=== PATIENT | female | born 1955 | race Caucasian/White ===

== ENCOUNTER → 2022-10-04 13:40 | Outpatient (CLI) | payer MEDICARE, SELFPAY ==
[2022-10-04 14:07] LABS: Add Manual Diff / Slide Review NO; Basophils Absolute Auto 100 /uL (0-100); Basophils Percent Auto 1.2 % (0-2); Eosinophils Absolute Auto 100 /uL (0-450); Eosinophils Percent Auto 1.2 % (2-4); Hematocrit 38.3 % (36-46); Hemoglobin 13.2 g/dL (12.0-16.0); Lymphocytes Absolute Auto 1500 /uL (1100-4500); Lymphocytes Percent Auto 16.5 % (25-40); Mean Corpuscular HGB Conc 34.4 % (30-36); Mean Corpuscular Hemoglobin 31.9 PG (26-34); Mean Corpuscular Volume 92.6 fL (80-100); Monocytes Absolute Auto 500 /uL (0-900); Monocytes Percent Auto 5.7 % (3-14); Neutrophils Absolute Auto 6700 /uL (1500-7000); Neutrophils Percent Auto 75.4 % (50-75); Platelet Count 275 X10^3/uL (150-400); Red Blood Cell Count 4.14 X10^6/uL (4.0-5.2); Red Cell Distribution Width 17.9 % (11.6-14.8); White Blood Cell Count 8.9 X10^3/uL (4.5-11.0)
[2022-10-04 14:23] LABS: Alanine Aminotransferase 43 IU/L (<35); Albumin 4.8 g/dL (3.5-5.0); Albumin Globulin Ratio 1.5 (1.0-2.8); Alkaline Phosphatase 137 U/L (38-126); Aspartate Aminotransferase 53 IU/L (14-36); BUN Creatinine Ratio 22.6 (6-22); Bilirubin Total 0.6 mg/dL (0.2-1.3); Blood Urea Nitrogen 26 mg/dL (7-17); Calcium 9.3 mg/dL (8.4-10.2); Carbon Dioxide 22 mmol/L (22-32); Chloride 102 mmol/L (98-107); Estimated Glomerular Filt Rate 52 mL/min (>60); Globulin 3.3 g/dL (1.7-4.1); Glucose 160 mg/dL (80-110); HDL Cholesterol 73 mg/dL (40-60); HEMOLYSIS < 15 (0-50); Potassium 4.3 mmol/L (3.4-5.1); Sodium 137 mmol/L (137-145); Total Protein 8.1 g/dL (6.3-8.2); Triglycerides 419 mg/dL (35-150)
[2022-10-04 14:26] LABS: Hemoglobin A1C% w Est Avg Glu 6.5 % (4.0-6.0)
[2022-10-04 14:33] LABS: Cholesterol 431 mg/dL (140-199)
[2022-10-04 14:51] LABS: TSH w/ Reflex to FT4 9.09 uIU/mL (0.47-4.68)
[2022-10-04 15:20] LABS: Free T4, Direct Thyroxine 1.52 ng/dL (0.78-2.19)
== END ==
PROVIDERS: PCP Family Medicine; Referring Provider Family Medicine; Visit Provider Family Medicine
DX: E03.9 Hypothyroidism, unspecified (principal); R73.01 Impaired fasting glucose; I10 Essential (primary) hypertension; J34.89 Other specified disorders of nose and nasal sinuses; R50.9 Fever, unspecified
CPT/HCPCS: 36415; 80053; 80061; 83036; 84439; 84443; 85025

== ENCOUNTER → 2022-11-23 11:57 | Outpatient (CLI) | payer MEDICARE, SELFPAY ==
[2022-11-23 12:38] LABS: Add Manual Diff / Slide Review NO; Basophils Absolute Auto 100 /uL (0-100); Eosinophils Absolute Auto 100 /uL (0-450); Eosinophils Percent Auto 1.7 % (2-4); Hematocrit 35.7 % (36-46); Hemoglobin 12.2 g/dL (12.0-16.0); Lymphocytes Absolute Auto 1700 /uL (1100-4500); Lymphocytes Percent Auto 28.3 % (25-40); Mean Corpuscular HGB Conc 34.2 % (30-36); Mean Corpuscular Hemoglobin 31.7 PG (26-34); Mean Corpuscular Volume 92.7 fL (80-100); Monocytes Absolute Auto 400 /uL (0-900); Monocytes Percent Auto 6.7 % (3-14); Neutrophils Absolute Auto 3700 /uL (1500-7000); Neutrophils Percent Auto 62.3 % (50-75); Platelet Count 396 X10^3/uL (150-400); Red Blood Cell Count 3.85 X10^6/uL (4.0-5.2); Red Cell Distribution Width 15.7 % (11.6-14.8)
[2022-11-23 13:16] LABS: BUN Creatinine Ratio 13.1 (6-22); Blood Urea Nitrogen 16 mg/dL (7-17); Calcium 9.8 mg/dL (8.4-10.2); Carbon Dioxide 21 mmol/L (22-32); Chloride 107 mmol/L (98-107); Cholesterol 212 mg/dL (140-199); Estimated Glomerular Filt Rate 48 mL/min (>60); Glucose 112 mg/dL (80-110); HDL Cholesterol 67 mg/dL (40-60); HEMOLYSIS < 15 (0-50); LDL Cholesterol Calculated 108 mg/dL (<100); Potassium 4.3 mmol/L (3.4-5.1); Sodium 139 mmol/L (137-145); Triglycerides 187 mg/dL (35-150)
[2022-11-23 13:20] LABS: High Sensitivity CRP - Cardiac 0.9 mg/L (1.0-3.0)
[2022-11-23 13:46] LABS: TSH w/ Reflex to FT4 6.31 uIU/mL (0.47-4.68)
[2022-11-23 14:16] LABS: Folate 4.2 ng/mL (2.76-20.0); Vitamin B12 > 1000 pg/mL (239-931)
[2022-11-23 21:35] LABS: Erythrocyte Sedimentation Rate 9 MM/HR (0-20)
[2022-11-25 22:03] LABS: Free Lambda Lt Chains,Serum 11.5 mg/L (5.7-26.3)
[2022-11-28 14:12] LABS: Albumin 3.9 g/dL (2.9-4.4); Alpha 1 Globulin 0.3 g/dL (0.0-0.4); Alpha 2 Globulin 0.8 g/dL (0.4-1.0); Beta 1 Globulin 1.1 g/dL (0.7-1.3); Gamma Globulin 0.6 g/dL (0.4-1.8); Protein, Total 6.7 g/dL (6.0-8.5)
[2022-11-28 14:36] LABS: ANA Screen, IFA Negative (.)
== END ==
PROVIDERS: PCP Family Medicine; Referring Provider Family Medicine; Visit Provider Family Medicine
DX: E03.9 Hypothyroidism, unspecified (principal); E78.5 Hyperlipidemia, unspecified; G62.9 Polyneuropathy, unspecified; I10 Essential (primary) hypertension; N18.30 Chronic kidney disease, stage 3 unspecified
CPT/HCPCS: 36415; 80048; 80061; 82607; 82746; 83883; 84155; 84165; 84439; 84443; 85025; 85300; 85651; 86038; 86140

== ENCOUNTER → 2023-02-04 11:40 | Outpatient (CLI) | payer MEDICARE, SELFPAY ==
[2023-02-04 12:01] LABS: Hematocrit 38.9 % (36-46); Hemoglobin 13.2 g/dL (12.0-16.0)
[2023-02-04 12:14] LABS: BUN Creatinine Ratio 15.7 (6-22); Blood Urea Nitrogen 18 mg/dL (7-17); Calcium 9.8 mg/dL (8.4-10.2); Carbon Dioxide 17 mmol/L (22-32); Chloride 107 mmol/L (98-107); Estimated Glomerular Filt Rate 52 mL/min (>60); Glucose 145 mg/dL (80-110); HEMOLYSIS 19 (0-50); Phosphorous 2.8 mg/dL (2.8-4.1); Potassium 4.7 mmol/L (3.4-5.1); Sodium 134 mmol/L (137-145)
[2023-02-04 12:58] LABS: Appearance Urine UA CLEAR; Bilirubin Urine UA 1+ (NEGATIVE); Color Urine UA YELLOW; Glucose Urine UA NEGATIVE (Negative); Ketones Urine UA 1+ (NEGATIVE); Leukocyte Esterase Urine UA TRACE (NEGATIVE); Nitrite Urine UA NEGATIVE (Negative); Occult Blood Urine UA NEGATIVE (Negative); Protein Urine UA NEGATIVE (Negative)
[2023-02-04 13:19] LABS: Bacteria Urine Many (>30); Culture Indicated Urine Specimen Cultured; Ictotest Urine Negative (Negative); RBC Urine None Seen (0-5/HPF); Squamous Epithelial Cell Urine 0-1 /HPF (0-5/HPF); WBC Urine 1-5/HPF (0-5/HPF)
[2023-02-04 15:28] LABS: Creatinine Urine Random 150.6 mg/dL; Protein (Total) Urine Random 13 mg/dL (0-12); Protein Creatinine Ratio Urine 0.08 GRAM/24H
[2023-02-07 09:17] LABS: Parathyroid Hormone Int 33 pg/mL (15-65)
== END ==
PROVIDERS: PCP Family Medicine; Referring Provider Student in an Organized Health Care Education/Training Program; Visit Provider Student in an Organized Health Care Education/Training Program
DX: N05.9 Unspecified nephritic syndrome with unspecified morphologic changes (principal); D64.9 Anemia, unspecified; E83.30 Disorder of phosphorus metabolism, unspecified; N30.00 Acute cystitis without hematuria; R80.9 Proteinuria, unspecified; N25.81 Secondary hyperparathyroidism of renal origin
CPT/HCPCS: 36415; 80048; 81001; 82570; 83970; 84100; 84156; 85014; 85018; 87086

== ENCOUNTER 2023-06-07 14:18 | Emergency (ER) | payer MEDICARE, SELFPAY ==
[2023-06-07] VITALS (7 sets, daily range): BP systolic 100–145; BP diastolic 59–95; PULSE 94–111; RESP 18–23; TEMP 36.8; O2SAT 91–96; BMI 38.4
--- NOTE | 2023-06-07 14:39 | DI.RAD.S_ITS ---
PROCEDURE: XR CHEST 1V INDICATIONS: Shortness of breath TECHNIQUE: One view of the chest was acquired. COMPARISON: None. FINDINGS: Surgical changes and devices: Partially visualized thoracolumbar spinal fixation hardware. Lungs and pleura: Lungs are clear. No pleural effusions or pneumothorax. Mediastinum: Mediastinal contours appear normal. Heart size is normal. Bones and chest wall: No suspicious bony lesions. Overlying soft tissues appear unremarkable. IMPRESSION: No acute cardiopulmonary process. Dictated by: Davin Espinosa M.D. on 06/07/2023 at 15:25 Approved by: Davin Espinosa M.D. on 06/07/2023 at 15:26
--- NOTE | 2023-06-07 15:19 | ED.GENADULT ---
HPI - General Adult General Chief complaint: Shortness of Breath/Dyspnea Stated complaint: distorted hernia? sob/weight gain /swollen feet Time Seen by Provider: 06/07/23 14:59 Source: patient Mode of arrival: Ambulatory History of Present Illness HPI narrative: Patient is a 59-year-old female. Has had multiple abdominal surgeries in the past. Has had an anterior and posterior approach to back surgery. Has also had a bowel obstruction. Has developed hernias from this. Has required mesh and then revisions of the mesh. She also has had multiple lower extremity DVTs which she states have been attributed to surgeries. She is not currently on anticoagulation. No history of pulmonary embolism. Approximately 1 week ago she started to have pain in the left side of her abdomen and then abdominal distention. This is worsened during this time. She also stating that she is having swelling in her legs. The abdominal distention is causing her to have shortness of breath. No chest pain. No diagnosis of heart failure. She states she is still having bowel movements and did pass flatus today. No urinary symptoms. Some nausea developing today. No vomiting. Related Data Home Medications Medication Instructions Recorded Confirmed aspirin 81 mg tablet,delayed 81 mg PO DAILY 08/10/22 03/22/23 release (Adult Aspirin Regimen) mecobalamin (vitamin B12) PO 08/10/22 03/22/23 metformin 500 mg tablet 500 mg PO DAILY 10/04/22 03/22/23 amlodipine 5 mg tablet 5 mg PO DAILY High blood pressure 03/22/23 03/22/23 furosemide 20 mg tablet (Lasix) 20 mg PO .prn edema 03/22/23 03/22/23 lisinopril 20 mg tablet 20 mg PO DAILY 03/22/23 03/22/23 Previous Rx's Medication Instructions Recorded levothyroxine 112 mcg tablet See Rx Instructions .Route 10/14/22 .COMPLEX #90 tabs fenofibrate 160 mg tablet See Rx Instructions .Route 01/09/23 .COMPLEX #90 tabs oxycodone 5 mg tablet 5 mg PO TID PRN pain 30 days #90 04/04/23 tabs Allergies Allergy/AdvReac Type Severity Reaction Status Date / Time Sulfa (Sulfonamide Allergy Severe Anaphylaxis Verified 03/22/23 08:19 Antibiotics) acetaminophen Allergy Mild Vomiting Verified 03/22/23 08:19 marijuana (cannabis) Allergy Anaphylaxis Verified 06/07/23 14:21 Review of Systems Constitutional Constitutional: Reports system reviewed and no additional complaints, except as documented Cardiovascular Cardiovascular: Reports system reviewed and no additional complaints, except as documented Respiratory Respiratory: Reports system reviewed and no additional complaints, except as documented Gastrointestinal Gastrointestinal: Reports system reviewed and no additional complaints, except as documented Genitourinary Genitourinary: Reports system reviewed and no additional complaints, except as documented Integumentary/Breasts Skin/Breast: Reports system reviewed and no additional complaints, except as documented Hematologic/Lymphatic On Anticoagulants: No Patient History Medical History Type 2 diabetes mellitus with complication, without long-term current use of insulin Hyperlipidemia CKD (chronic kidney disease) stage 3, GFR 30-59 ml/min Narcolepsy (~1999) Depression TIA (transient ischemic attack) (~2017) Peripheral neuropathy (~04/2022) Fractures Chicken pox Vertigo (~1969) Heavy menstrual period (~1970) Abnormal Pap smear of cervix (~1978) Hemorrhoid (~1979) Colon polyps Deep vein thrombosis Cervical cancer Chronic pain Benign essential HTN IFG (impaired fasting glucose) Hypothyroidism (~2009) Surgical History (Updated 10/11/22 @ 19:38 by Kia Andre) Anesthesia Family History (Updated 10/11/22 @ 19:41 by Kia Andre) Father Diabetes mellitus History of heart disease Stroke Mother History of heart disease Grandfather History of heart disease Grandmother History of heart disease Grandfather Parkinson's disease Grandmother Alzheimer's disease Social History Smoking Status: Former smoker Smoking Status: Former smoker tobacco type: cigarettes alcohol intake frequency: a few times a week Substance Use Type: does not use Exam Initial Vital Signs Initial Vital Signs: Vital Signs Temperature 98.3 F 06/07/23 14:21 Pulse Rate 111 H 06/07/23 14:21 Respiratory Rate 22 06/07/23 14:21 Blood Pressure 121/68 06/07/23 14:21 Pulse Oximetry 96 06/07/23 14:21 Oxygen Delivery Method Room Air 06/07/23 14:21 HENMT Head: normal to inspection and normocephalic Resp Effort & Inspection: normal respiratory effort Auscultation: clear to auscultation bilaterally Cardio Rate: regular rate Rhythm: regular rhythm GI Inspection: distended Palpation: firm and tender Skin General: no rashes or lesions noted Neuro General: patient alert, patient awake and patient oriented x3 Extrem General: normal to inspection and edema Course Orders Ordered: ED Orders 06/07/23 14:39 XR chest 1V Stat EKG-12 Lead Stat Measure peak expiratory flow ONCE RT Consult Eval and Treat NOW 06/07/23 14:55 Complete Blood Count AUTO DIFF Stat Comprehensive Metabolic Panel Stat Lactate (Lactic Acid) Stat NT-proBNP (BNP-Adult 18+) Stat Prothrombin Time INR Stat Troponin I Stat 06/07/23 15:19 CT abdomen pelvis w con Stat Vital Signs Vital signs: Vital Signs - 8 hr 06/07/23 14:21 06/07/23 15:06 06/07/23 15:06 Temperature 98.3 F Pulse Rate 111 H 95 H Respiratory Rate 22 Blood Pressure 121/68 117/70 Pulse Oximetry 96 96 Oxygen Delivery Method Room Air 06/07/23 15:30 06/07/23 15:30 06/07/23 16:00 Temperature Pulse Rate 103 H 97 H Respiratory Rate 21 23 Blood Pressure 115/63 Pulse Oximetry 94 94 Oxygen Delivery Method 06/07/23 16:00 06/07/23 16:16 06/07/23 16:16 Temperature Pulse Rate 96 H Respiratory Rate 19 Blood Pressure 100/67 145/95 H Pulse Oximetry 91 Oxygen Delivery Method Medical Decision Making Lab Data Lab results reviewed: Yes I reviewed the patient's lab results. 06/07/23 14:55 06/07/23 14:55 Labs: Lab Results 06/07/23 Range/Units 14:55 WBC 9.5 (4.5-11.0) X10^3/uL RBC 4.07 (4.0-5.2) X10^6/uL Hgb 12.0 (12.0-16.0) g/dL Hct 36.1 (36-46) % MCV 88.7 (80-100) fL MCH 29.4 (26-34) PG MCHC 33.2 (30-36) % RDW 15.3 H (11.6-14.8) % Plt Count 336 (150-400) X10^3/uL Neut % (Auto) 73.1 (50-75) % Lymph % (Auto) 17.7 L (25-40) % [place] % (Auto) 7.1 (3-14) % Eos % (Auto) 1.2 L (2-4) % Baso % (Auto) 0.9 (0-2) % Neut # (Auto) 6900 (0571-9097) /uL Lymph # (Auto) 1700 (0064-8605) /uL [place] # (Auto) 700 (0-900) /uL Eos # (Auto) 100 (0-450) /uL Baso # (Auto) 100 (0-100) /uL PT 11.2 (10.1-12.7) SECONDS INR 1.0 (0.9-1.3) Sodium 137 (137-145) mmol/L Potassium 5.0 (3.4-5.1) mmol/L Chloride 107 (98-107) mmol/L Carbon Dioxide 18 L (22-32) mmol/L BUN 31 H (7-17) mg/dL Creatinine 1.79 H (0.52-1.04) mg/dL Estimated GFR 31 L (>60) mL/min BUN/Creatinine Ratio 17.3 (6-22) Glucose 122 H (80-110) mg/dL Lactate 2.4 H (0.7-2.1) mmol/L Calcium 10.5 H (8.4-10.2) mg/dL Total Bilirubin 0.6 (0.2-1.3) mg/dL AST 53 H (14-36) IU/L ALT 47 H (<35) IU/L Alkaline Phosphatase 36 L (38-126) U/L Troponin I < 0.012 (0.01-0.034) ng/mL NT-Pro-B Natriuret Pep 66 (<125) pg/mL Total Protein 7.5 (6.3-8.2) g/dL Albumin 4.7 (3.5-5.0) g/dL Globulin 2.8 (1.7-4.1) g/dL Albumin/Globulin Ratio 1.7 (1.0-2.8) Imaging Data Chest x-ray: Radiologist's Impression: PROCEDURE: XR CHEST 1V INDICATIONS: Shortness of breath TECHNIQUE: One view of the chest was acquired. COMPARISON: None. FINDINGS: Surgical changes and devices: Partially visualized thoracolumbar spinal fixation hardware. Lungs and pleura: Lungs are clear. No pleural effusions or pneumothorax. Mediastinum: Mediastinal contours appear normal. Heart size is normal. Bones and chest wall: No suspicious bony lesions. Overlying soft tissues appear unremarkable. IMPRESSION: No acute cardiopulmonary process. CT scan - abdomen/pelvis: Radiologist's Impression: PROCEDURE: CT ABDOMEN PELVIS W CON INDICATIONS: Concern for bowel obstruction TECHNIQUE: After the administration of IV contrast, axial sections were acquired from the lung bases to the pubic symphysis. Coronal and sagittal reformats were performed. For radiation dose reduction, the following was used: automated exposure control, adjustment of mA and/or kV according to patient size. COMPARISON: None. FINDINGS: Image quality: Excellent. Lung bases: Bibasilar atelectasis. No pleural effusion. Heart: Moderate coronary artery calcifications. ABDOMEN: Liver: Small hypodensity at the dome likely a cyst. Gallbladder: Absent. Biliary ducts: Unremarkable. Pancreas: No peripancreatic fluid collection. Spleen: No splenomegaly. Adrenal Glands: No nodule. Kidneys and Ureters: No hydronephrosis. No mass. Stomach and Bowel: Stomach is not distended. No small bowel obstruction. Small bowel anastomosis in the mid abdomen, (2/51). Clip in the left abdomen. Appendix is absent. Peritoneum: No abnormal intraperitoneal fluid. No free air. Ventral Wall: Fat containing periumbilical hernia. Abdominal Nodes: No retroperitoneal or mesenteric adenopathy by size criteria. Vessels: Aorta and inferior vena cava are normal in size. PELVIS: Pelvic Organs: Unremarkable. Bladder: Unremarkable. Pelvic Nodes: No enlarged lymph nodes. Miscellaneous: No inguinal hernias are seen. Bones: Extensive spine fixation. No hardware fracture is identified. Multilevel laminectomies. Scoliosis. Minimal height loss at L2. Lumbar subcutaneous edema. Left hip arthroplasty. IMPRESSION: 1. No small bowel obstruction. No free fluid. 2. Fat containing periumbilical hernia. ECG Data Attestation: I personally reviewed and interpreted this ECG as follows: Interpretation: Sinus tachycardia Ventricular rate 102 Normal QRS Normal QTC No ST T wave changes MDM Narrative Medical decision making narrative: Patient does have a distended abdomen have her still having bowel movements and still passing flatus. CT scan shows no bowel obstruction. She does have Lasix that she takes at home as needed. She is describing lower extremity swelling and this could be adding to her abdominal distention as well. I did advise that she go back on her Lasix. We had a discussion about her bowel movements and she states they have been small but she is not getting the relief that she would expect. Will have her start on a laxative for this. No indication for admission to the hospital. No indication for antibiotics. Discharge patient home with return precautions. Discharge Plan Departure Patient Disposition: Home Clinical Impression: Abdominal pain Instructions: Constipation, DI for Abdominal Pain-Adult Activity Restrictions/Additional Instructions: Continue to take all of your medications as directed and I do recommend that you go back on your Lasix/furosemide. I also recommend that you start on a good bowel regimen which may include stool softeners or laxatives like we discussed. Keep your scheduled appointment with your primary doctor. Return to the emergency department for new or worsening symptoms. Prescriptions: No Action mecobalamin (vitamin B12) PO aspirin [Adult Aspirin Regimen] 81 mg tablet,delayed release (DR/EC) 81 mg PO DAILY levothyroxine 112 mcg tablet See Rx Instructions .ROUTE .COMPLEX Qty: 90 3RF Dose Instruction: TAKE 1 TABLET BY MOUTH DAILY Rx Instructions: TAKE 1 TABLET BY MOUTH DAILY fenofibrate 160 mg tablet See Rx Instructions .ROUTE .COMPLEX Qty: 90 1RF Dose Instruction: TAKE 1 TABLET BY MOUTH DAILY FOR CHOLESTEROL Rx Instructions: TAKE 1 TABLET BY MOUTH DAILY FOR CHOLESTEROL oxycodone 5 mg tablet 5 mg PO TID PRN (Reason: pain) 30 Days Qty: 90 0RF metformin 500 mg tablet 500 mg PO DAILY amlodipine 5 mg tablet 5 mg PO DAILY Patient Comments: The physician who prescribed this is my chronic kidney disease doctor lisinopril 20 mg tablet 20 mg PO DAILY furosemide [Lasix] 20 mg tablet 20 mg PO .prn Referrals: Higinio Block DO [Primary Care Provider] - Stand Alone Forms: Patient Portal/API
[2023-06-07 15:28] LABS: Prothrombin Time 11.2 SECONDS (10.1-12.7)
[2023-06-07 15:32] LABS: Add Manual Diff / Slide Review NO; Basophils Absolute Auto 100 /uL (0-100); Basophils Percent Auto 0.9 % (0-2); Eosinophils Absolute Auto 100 /uL (0-450); Eosinophils Percent Auto 1.2 % (2-4); Hematocrit 36.1 % (36-46); Lymphocytes Absolute Auto 1700 /uL (1100-4500); Lymphocytes Percent Auto 17.7 % (25-40); Mean Corpuscular HGB Conc 33.2 % (30-36); Mean Corpuscular Hemoglobin 29.4 PG (26-34); Mean Corpuscular Volume 88.7 fL (80-100); Monocytes Absolute Auto 700 /uL (0-900); Monocytes Percent Auto 7.1 % (3-14); Neutrophils Absolute Auto 6900 /uL (1500-7000); Neutrophils Percent Auto 73.1 % (50-75); Platelet Count 336 X10^3/uL (150-400); Red Blood Cell Count 4.07 X10^6/uL (4.0-5.2); Red Cell Distribution Width 15.3 % (11.6-14.8); White Blood Cell Count 9.5 X10^3/uL (4.5-11.0)
[2023-06-07 15:49] LABS: Alanine Aminotransferase 47 IU/L (<35); Albumin 4.7 g/dL (3.5-5.0); Albumin Globulin Ratio 1.7 (1.0-2.8); Alkaline Phosphatase 36 U/L (38-126); Aspartate Aminotransferase 53 IU/L (14-36); BUN Creatinine Ratio 17.3 (6-22); Bilirubin Total 0.6 mg/dL (0.2-1.3); Blood Urea Nitrogen 31 mg/dL (7-17); Calcium 10.5 mg/dL (8.4-10.2); Carbon Dioxide 18 mmol/L (22-32); Chloride 107 mmol/L (98-107); Estimated Glomerular Filt Rate 31 mL/min (>60); Globulin 2.8 g/dL (1.7-4.1); Glucose 122 mg/dL (80-110); HEMOLYSIS 38 (0-50); Sodium 137 mmol/L (137-145); Total Protein 7.5 g/dL (6.3-8.2)
[2023-06-07 15:51] LABS: Lactate (Lactic Acid) 2.4 mmol/L (0.7-2.1)
[2023-06-07 15:59] LABS: NT-proBNP (BNP-Adult 18+) 66 pg/mL (<125); Troponin I < 0.012 ng/mL (0.01-0.034)
[2023-06-07 16:55] LABS: Reflexed Lactate in 2 Hours Y
== END 2023-06-07 17:25 | disposition home or self-care (01) ==
PROVIDERS: Emergency Provider Emergency Medicine; PCP Family Medicine
DX: R10.9 Unspecified abdominal pain (principal); R11.0 Nausea; R06.02 Shortness of breath
CPT/HCPCS: 36415; 71045; 74177; 80053; 83605; 83880; 84484; 85025; 85610; 93005; 93010; 99283; 99284; Q9967

== ENCOUNTER → 2023-06-26 08:56 | Outpatient (CLI) | payer MEDICARE, SELFPAY ==
[2023-06-26 10:14] LABS: Hemoglobin A1C% w Est Avg Glu 7.1 % (4.0-6.0)
[2023-06-26 10:16] LABS: BUN Creatinine Ratio 21.6 (6-22); Blood Urea Nitrogen 24 mg/dL (7-17); Calcium 10.6 mg/dL (8.4-10.2); Carbon Dioxide 19 mmol/L (22-32); Chloride 107 mmol/L (98-107); Estimated Glomerular Filt Rate 54 mL/min (>60); Glucose 126 mg/dL (80-110); HEMOLYSIS < 15 (0-50); Sodium 135 mmol/L (137-145)
[2023-06-26 10:20] LABS: Potassium 5.6 mmol/L (3.4-5.1)
[2023-06-26 10:46] LABS: TSH w/ Reflex to FT4 3.91 uIU/mL (0.47-4.68)
== END ==
PROVIDERS: PCP Family Medicine; Referring Provider Family Medicine; Visit Provider Family Medicine
DX: E11.8 Type 2 diabetes mellitus with unspecified complications (principal); N18.30 Chronic kidney disease, stage 3 unspecified; E78.5 Hyperlipidemia, unspecified; I10 Essential (primary) hypertension; E03.9 Hypothyroidism, unspecified
CPT/HCPCS: 36415; 80048; 83036; 84443

== ENCOUNTER → 2023-08-28 10:15 | Outpatient (CLI) | payer MEDICARE, SELFPAY ==
--- NOTE | 2023-08-28 10:17 | DI.RAD.S_ITS ---
Bone Density Report Name: TRUNG MENA Age: 67 Sex: Female Ethnicity: White Date of : 1955 Indication: postmenopausal; screening for osteoporosis; prior fracture; Referring Provider: IRIS CALI Study: Bone densitometry was performed. Exam Date: August 28, 2023 Accession number: [id number] Bone Density: Region BMD T-score Z-score Classification Femoral Neck (Right) 0.649 -1.8 -0.1 Osteopenia Total Hip (Right) 0.809 -1.1 0.4 Osteopenia Total Forearm (Left) 0.501 -1.4 0.5 Osteopenia 1/3 Forearm (Left) 0.658 -0.6 1.4 Normal UD Forearm (Left) 0.380 -1.1 0.3 Osteopenia World Health Organization criteria for BMD impression classify patients as: Normal (T-score at or above -1.0), Osteopenia (T-score between -1.0 and -2.5), or Osteoporosis (T-score at or below -2.5). 10-year Fracture Risk: FRAX not reported because: Prior hip or vertebral fracture Impression: The patient has low bone mass, based on the Right Femoral Neck T-score. The patient has risk factors, including: previous fracture. Discussion: INCREASED RISK OF FRACTURE DUE TO HISTORY OF FRACTURE. The patient's previous fracture puts the patient at high risk of a future fracture. In untreated patients, the risk of osteoporotic fracture increases approximately two-fold for each 1.0 SD decrease in T-score. Low bone density is not the only risk factor for fracture; also consider factors such as patient's age, frailty or poor health, risk of falling, risk of injury, previous osteoporotic fracture, family history of osteoporosis, cigarette smoking, low body weight, etc. Not everyone with a low trauma fracture has osteoporosis; osteomalacia and other metabolic bone disorders should also be considered. Patients who have osteoporosis should be evaluated for specific diseases and conditions (secondary causes) that may cause or contribute to bone loss and fracture risk. National Osteoporosis Foundation (NOF) recommends pharmacologic intervention for patients with a prior hip or vertebral fracture regardless of BMD T-score. The patient should follow a healthful lifestyle (good nutrition with adequate calcium and vitamin D, and appropriate weight-bearing exercise). Follow-Up: Consider a repeat BMD and Vertebral Fracture Assessment (VFA) exam in 2 years or sooner if medically necessary, to reassess this patient's status. Reported by: MARÍA MURDOCK M.D. on 08/28/2023 10:48:00 AM.
== END ==
PROVIDERS: PCP Family Medicine; Referring Provider Family Medicine; Visit Provider Family Medicine
DX: M81.0 Age-related osteoporosis without current pathological fracture (principal); Z13.820 Encounter for screening for osteoporosis
CPT/HCPCS: 77080

== ENCOUNTER → 2023-09-04 07:53 | Outpatient (CLI) | payer MEDICARE, SELFPAY ==
[2023-09-04 09:11] LABS: Hemoglobin 11.3 g/dL (12.0-16.0)
[2023-09-04 10:07] LABS: BUN Creatinine Ratio 17.1 (6-22); Blood Urea Nitrogen 26 mg/dL (7-17); Calcium 9.6 mg/dL (8.4-10.2); Carbon Dioxide 14 mmol/L (22-32); Chloride 105 mmol/L (98-107); Estimated Glomerular Filt Rate 37 mL/min (>60); Glucose 97 mg/dL (80-110); HEMOLYSIS < 15 (0-50); Potassium 4.5 mmol/L (3.4-5.1); Sodium 132 mmol/L (137-145)
[2023-09-04 10:26] LABS: Creatinine Urine Random 124.7 mg/dL; Protein (Total) Urine Random 6 mg/dL (0-12); Protein Creatinine Ratio Urine 0.04 GRAM/24H
[2023-09-07 09:15] LABS: Parathyroid Hormone Int 22 pg/mL (15-65)
== END ==
PROVIDERS: PCP Family Medicine; Referring Provider Student in an Organized Health Care Education/Training Program; Visit Provider Student in an Organized Health Care Education/Training Program
DX: N05.9 Unspecified nephritic syndrome with unspecified morphologic changes (principal); D70.9 Neutropenia, unspecified; D63.1 Anemia in chronic kidney disease; N25.81 Secondary hyperparathyroidism of renal origin; R80.9 Proteinuria, unspecified
CPT/HCPCS: 36415; 80048; 82570; 83970; 84156; 85014; 85018

== ENCOUNTER → 2023-09-13 15:04 | Outpatient (CLI) | payer MEDICARE, SELFPAY ==
--- NOTE | 2023-09-13 15:07 | DI.RAD.S_ITS ---
PROCEDURE: XR RIBS LT MIN 3V W CXR1V INDICATIONS: screening TECHNIQUE: 2 views of the ribs were acquired, along with a single view chest. COMPARISON: None. FINDINGS: Surgical changes and devices: Large thoracolumbar posterior spinal construct noted Bones and chest wall: No fractures or dislocations. No suspicious bony lesions. Overlying soft tissues appear unremarkable. Lungs and pleura: No pleural effusions or pneumothorax. Lungs appear clear. Mediastinum: Mediastinal contours appear normal. Heart size is normal. IMPRESSION: No displaced rib fracture or pneumothorax. Approved by: Farhan Jacome M.D. on 09/13/2023 at 19:16
== END ==
PROVIDERS: PCP Family Medicine; Referring Provider Family Medicine; Visit Provider Family Medicine
DX: S20.212A Contusion of left front wall of thorax, initial encounter (principal); X58.XXXA Exposure to other specified factors, initial encounter
CPT/HCPCS: 71101

== ENCOUNTER → 2023-09-22 14:28 | Outpatient (CLI) | payer MEDICARE, SELFPAY ==
--- NOTE | 2023-09-22 14:33 | DI.MG.S_ITS ---
BILATERAL DIGITAL SCREENING MAMMOGRAM 3D/2D WITH CAD: 09/22/2023 CLINICAL: Routine screening. Comparison is made to exams dated: 11/24/2021 mammogram, 11/11/2021 mammogram, 07/05/2019 mammogram, and 06/07/2018 mammogram - Outside facility. Both breasts are almost entirely fatty (category a/<25% glandular tissue). Current study was also evaluated with a Computer Aided Detection (CAD) system. No significant masses, calcifications, or other findings are seen in either breast. There has been no significant interval change. IMPRESSION: NEGATIVE There is no mammographic evidence of malignancy. A 1 year screening mammogram is recommended. Based on the Tyrer Cuzick model (a risk assessment model) the patient's lifetime risk is 3.4% and her 10 year risk is 1.9%. According to the ACR, ACS, and NCCN guidelines, an annual breast MRI exam along with mammogram is recommended if the patient's lifetime risk is 20% or greater. This exam was interpreted at Station ID: [id number]. NOTE: For mammograms, a report in lay terms will be sent to the patient. Approximately 15% of breast malignancies will not be visualized mammographically. In the management of a palpable breast mass, a negative mammogram must not discourage biopsy of a clinically suspicious lesion. Electronically Signed By: Jaret milan/arnaldo:09/25/2023 08:02:09 letter sent: Normal Exam ACR BI-RADS Category 1: Negative [id number]
== END ==
LOC: MAMMO 14:31
PROVIDERS: PCP Family Medicine; Referring Provider Family Medicine; Visit Provider Family Medicine
DX: Z12.31 Encounter for screening mammogram for malignant neoplasm of breast (principal)
CPT/HCPCS: 77063; 77067

== ENCOUNTER → 2023-09-25 09:02 | Outpatient (CLI) | payer MEDICARE, SELFPAY ==
[2023-09-25 10:35] LABS: Creatinine Urine Random 108.9 mg/dL; Protein (Total) Urine Random < 5 mg/dL (0-12); Protein Creatinine Ratio Urine 0.04 GRAM/24H
[2023-09-25 10:36] LABS: BUN Creatinine Ratio 18.4 (6-22); Blood Urea Nitrogen 26 mg/dL (7-17); Calcium 10.3 mg/dL (8.4-10.2); Carbon Dioxide 18 mmol/L (22-32); Chloride 110 mmol/L (98-107); Estimated Glomerular Filt Rate 41 mL/min (>60); Glucose 126 mg/dL (80-110); HEMOLYSIS < 15 (0-50); Potassium 5.3 mmol/L (3.4-5.1); Sodium 139 mmol/L (137-145)
== END ==
LOC: LAB 09:03
PROVIDERS: PCP Family Medicine; Referring Provider Student in an Organized Health Care Education/Training Program; Visit Provider Student in an Organized Health Care Education/Training Program
DX: N05.9 Unspecified nephritic syndrome with unspecified morphologic changes (principal); R80.9 Proteinuria, unspecified
CPT/HCPCS: 36415; 80048; 82570; 84156

== ENCOUNTER → 2023-10-03 14:27 | Outpatient (CLI) | payer MEDICARE, SELFPAY ==
[2023-10-03 15:27] LABS: HEMOLYSIS < 15 (0-50); Potassium 4.4 mmol/L (3.4-5.1)
[2023-10-03 15:28] LABS: Hemoglobin A1C% w Est Avg Glu 6.1 % (4.0-6.0)
== END ==
LOC: LAB 14:29
PROVIDERS: Family Provider Family Medicine; PCP Family Medicine; Referring Provider Student in an Organized Health Care Education/Training Program; Visit Provider Student in an Organized Health Care Education/Training Program
DX: E87.5 Hyperkalemia (principal); E11.8 Type 2 diabetes mellitus with unspecified complications; I10 Essential (primary) hypertension
CPT/HCPCS: 36415; 83036; 84132

== ENCOUNTER → 2023-10-11 10:43 | Outpatient (CLI) | payer MEDICARE, SELFPAY ==
[2023-10-11 15:07] LABS: Influenza A - CEPHEID Flu A NEGATIVE (NEGATIVE); Influenza B - CEPHEID Flu B NEGATIVE (NEGATIVE); Respiratory Syncytial Virus Negative (Negative)
[2023-10-11 15:09] LABS: COVID-19 CEPHEID 4-PLEX PCR Negative (Negative)
== END ==
PROVIDERS: Family Provider Family Medicine; PCP Family Medicine; Visit Provider Family Medicine
DX: R09.89 Other specified symptoms and signs involving the circulatory and respiratory systems (principal); R50.9 Fever, unspecified
CPT/HCPCS: 0241U

== ENCOUNTER → 2023-10-11 10:52 | Outpatient (CLI) | payer MEDICARE, SELFPAY ==
--- NOTE | 2023-10-11 10:54 | DI.US.S_ITS ---
PROCEDURE: US PERIPH VENOUS LOW EXTREM LT INDICATIONS: SWELLING TECHNIQUE: Real-time imaging, as well as color and pulse Doppler interrogation, were performed of the lower extremity deep veins from the inguinal ligament to the popliteal fossa, with documentation of the visualized calf veins. COMPARISON: None. FINDINGS: The common femoral, and femoral veins are free of intraluminal thrombus. There is partially occlusive thrombus of the popliteal vein as well as segment of the posterior tibial vein. The peroneal vein is not well visualized. No thrombus identified at the greater saphenous vein/common femoral vein junction. Incidental note of a German cyst measuring 2.1 x 2.6 x 1.0 cm. Moderate left ankle edema. No organized fluid collection. IMPRESSION: Partially occlusive thrombus identified in the popliteal vein and proximal posterior tibial vein. Incidental note of a German cyst. Dictated by: Jaret Uribe M.D. on 10/11/2023 at 12:23 Approved by: Jaret Uribe M.D. on 10/11/2023 at 12:25
== END ==
PROVIDERS: Family Provider Family Medicine; PCP Family Medicine; Referring Provider Family Medicine; Visit Provider Family Medicine
DX: I82.432 Acute embolism and thrombosis of left popliteal vein (principal); I82.442 Acute embolism and thrombosis of left tibial vein; M79.89 Other specified soft tissue disorders; M71.22 Synovial cyst of popliteal space [Baker], left knee; R09.89 Other specified symptoms and signs involving the circulatory and respiratory systems; R50.9 Fever, unspecified; Z86.718 Personal history of other venous thrombosis and embolism
CPT/HCPCS: 0241U; 93971

== ENCOUNTER → 2023-11-17 09:47 | Outpatient (CLI) | payer MEDICARE, SELFPAY ==
[2023-11-17 10:55] LABS: Add Manual Diff / Slide Review NO; Basophils Absolute Auto 100 /uL (0-100); Eosinophils Absolute Auto 100 /uL (0-450); Hematocrit 40.5 % (36-46); Hemoglobin 13.3 g/dL (12.0-16.0); Lymphocytes Absolute Auto 1500 /uL (1100-4500); Lymphocytes Percent Auto 22.6 % (25-40); Mean Corpuscular HGB Conc 32.8 % (30-36); Mean Corpuscular Hemoglobin 27.3 PG (26-34); Mean Corpuscular Volume 83.2 fL (80-100); Monocytes Absolute Auto 400 /uL (0-900); Monocytes Percent Auto 6.1 % (3-14); Neutrophils Absolute Auto 4700 /uL (1500-7000); Neutrophils Percent Auto 68.3 % (50-75); Platelet Count 391 X10^3/uL (150-400); Red Blood Cell Count 4.87 X10^6/uL (4.0-5.2); Red Cell Distribution Width 15.5 % (11.6-14.8); White Blood Cell Count 6.8 X10^3/uL (4.5-11.0)
[2023-11-17 11:16] LABS: Erythrocyte Sedimentation Rate 5 MM/HR (0-20)
[2023-11-17 11:19] LABS: C-Reactive Protein Quant 0.5 mg/dL (<1.0); Potassium 4.4 mmol/L (3.4-5.1)
[2023-11-17 11:20] LABS: BUN Creatinine Ratio 18.9 (6-22); Blood Urea Nitrogen 20 mg/dL (7-17); Calcium 10.2 mg/dL (8.4-10.2); Carbon Dioxide 18 mmol/L (22-32); Chloride 106 mmol/L (98-107); Estimated Glomerular Filt Rate 57 mL/min (>60); Glucose 189 mg/dL (80-110); HEMOLYSIS 16 (0-50); Sodium 137 mmol/L (137-145)
[2023-11-17 11:33] LABS: Vitamin D 25 Hydroxy (D3) 37.7 ng/mL (30.0-100.0)
[2023-11-17 11:35] LABS: Creatinine Urine Random 39.6 mg/dL; Protein (Total) Urine Random 8 mg/dL (0-12)
[2023-11-19 10:14] LABS: Parathyroid Hormone Int 47 pg/mL (15-65)
== END ==
PROVIDERS: Family Provider Family Medicine; PCP Family Medicine; Referring Provider Student in an Organized Health Care Education/Training Program; Visit Provider Student in an Organized Health Care Education/Training Program
DX: D70.9 Neutropenia, unspecified (principal); N25.81 Secondary hyperparathyroidism of renal origin; D63.1 Anemia in chronic kidney disease; D47.2 Monoclonal gammopathy; R80.9 Proteinuria, unspecified; N85.9 Noninflammatory disorder of uterus, unspecified; M79.89 Other specified soft tissue disorders
CPT/HCPCS: 36415; 80048; 82306; 82570; 83970; 84155; 84156; 84165; 84166; 85025; 85651; 86140

== ENCOUNTER 2023-12-04 09:00 | Outpatient (RCR) | payer MEDICARE, SELFPAY ==
--- NOTE | 2023-10-24 15:45 | PT.OIE ---
Current Diagnoses Unsteadiness on feet (10/24/23) Other lack of coordination (10/24/23) Weakness (10/24/23) Unspecified fall, initial encounter (10/24/23) Unspecified place in unspecified non-institutional (private) residence as the place of occurrence of the external cause (10/24/23) Past Medical History (Last Updated 10/11/23 @ 12:06 by Higinio Block DO) Abnormal Pap smear of cervix (~1978) Benign essential HTN Cervical cancer Chicken pox Chronic pain CKD (chronic kidney disease) stage 3, GFR 30-59 ml/min Colon polyps Deep vein thrombosis Depression Diabetic peripheral neuropathy DVT of leg (deep venous thrombosis) Encounter for subsequent annual wellness visit (AWV) in Medicare patient Fractures Heavy menstrual period (~1970) Hemorrhoid (~1979) Hyperlipidemia Hypothyroidism (~2009) Narcolepsy (~1999) Opiate dependence Peripheral neuropathy (~04/2022) TIA (transient ischemic attack) (~2017) Type 2 diabetes mellitus with complication, without long-term current use of insulin Vertigo (~1969) Past Surgical History (Last Updated 10/11/22 @ 19:38 by Kia Andre) Anesthesia Visit Care Team Role Provider Type Higinio Block DO Attending Provider Physician Family Provider Primary Care Provider Referring Provider Specialty: [facility] Address: [address] [place] [address], [address], [facility] Email: [email or web address] Physical Therapy Initial Evaluation PT-OP-A Visit Information Start: 10/23/23 16:45 Freq: Status: Active Protocol: Document 10/24/23 09:01 NM (Rec: 10/24/23 09:48 NM [id number]) Out-Patient Physical Therapy Visit Information Visit Information Visit Type Initial Evaluation Visit Note KX after 19 visits Visit Start Time 09:00 Visit Stop Time 09:45 Visit Number 1 Evaluation Information Evaluation Date 10/24/23 Precautions Precautions blood thinners, hx scoliosis and spinal fusion with rods, previous BIGG and DVT risk, FALL RISK take vitals and monitor during session PT-OP-B Current Condition Start: 10/23/23 16:45 Freq: Status: Active Protocol: Document 10/24/23 09:01 NM (Rec: 10/24/23 09:48 NM [id number]) Current Condition History of Current Condition Current Complaints falls, balance, weakness History of Current Condition Pt presents with balance and gait abnormalities. Pt has 3 BIGG on LLE (first in 2009), metal rods/fusion of T6-sacrum (unable to lay flat), several hernias. 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 Pt has a hx of falls, last in September 2023 with several contusions in ribs; waited 1.5 wk to go to MD because unable to move, went to Dr. Pt reports that she falls at least 1x/month. She reports tendency to over do it leading to increased fatigue and weakness. She reports that her balance is off. She uses spc (using for 1.5 years, for all mobility) for balance, uses in R hand. No vertigo, dizziness, denies falls related to changes in BP ; states falls due to tripping or not picking up feet. No throw rugs in house. Has neuropathy of B feet and hands , numbness in both. Prior Treatments and Tests previous PT for hips and back (no twisting, limited ROM. 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[employer], difficulty carrying objects occasionally with 1 hand while using spc Functional Limitations- Recreation/ rowing boat Hobbies Functional Limitations- Other lives on [facility], alone; son works in [employer] PT-OP-C Subjective Start: 10/23/23 16:45 Freq: Status: Active Protocol: Document 10/24/23 09:01 NM (Rec: 10/24/23 09:48 KS [id number]) OP-PT Subjective Patient Comments Patient Comments see hx above for pt report Patient Questionnaires ABC- Activity Specific Balance Confidence Scale ABC Score 40% Other Questionnaire Name and Score Falls Efficacy Scale: OP-PT Pain Assessment Pain Assessment Grid Paper Pain Assessment Grid Completed Yes: back 6-8/10, L hip 4/10 Pain Behaviors Pain Behaviors Guarding,Holding Area,W[place] PT-OP-D Balance Start: 10/23/23 16:45 Freq: Status: Active Protocol: Document 10/24/23 09:01 NM (Rec: 10/24/23 16:08 NM [id number]) Balance Tests Bautista Balance Test Bautista Balance Test Score 35/56 Single Limb Standing Single Limb- Right unable Single Limb- Left unable Tandem Tandem Standing unable to maintain w/o LOB during step,stance PT-OP-E Functional Tests Start: 10/23/23 16:45 Freq: Status: Active Protocol: Document 10/24/23 09:01 NM (Rec: 10/24/23 09:48 NM [id number]) Functional Tests 6 Minute Walk Test Distance 872 ft Device Used spc Comments reports low back pain, slow gait speed, fatigues Dynamic Gait Index (DGI) Score 10/24 Five Times Sit to Stand Test Score 15 Comments back pain, slow, 20 ht Timed Up and Go (TUG) Score 11 seconds Comments with spc, increased time to sit, increased sway PT-OP-F Manual Assessment Start: 10/23/23 16:45 Freq: Status: Active Protocol: Document 10/24/23 09:01 NM (Rec: 10/24/23 14:30 NM [id number]) Manual Assessments Soft Tissue Assessment Soft Tissue Mobility Assessment Decreased ankle dorsiflexion observed with gait, decreased active L hip AROM Joint Mobility Assessment Joint Mobility Assessment Decreased lumbar spine and L hip AROM due to previous surgeries, recent hernia repair leading to decreased abdominal strength PT-OP-G Mobility & Gait Start: 10/23/23 16:45 Freq: Status: Active Protocol: Document 10/24/23 09:01 NM (Rec: 10/24/23 14:30 NM [id number]) OP Gait Assessment Gait Gait Assistance Required: Standby Assistance Distance (Feet) 872 Assistive Devices Assistive Device Gait Belt,Straight Cane Gait Deviations General Gait Pattern Antalgic,Decreased Stride Length,Flexed Trunk Factors Limiting Gait Function Factors Limiting Gait Function Decreased Activity Tolerance, Decreased Strength,Limited Range of Motion,Pain,Poor Balance Comments Gait Comments Decreased L stance time, spc in R hand Stair Climbing Evaluation Evaluation Level of Assist On Stairs Contact Guard Assistance Devices Stair Climbing Assistive Devices Straight Cane,Left Railing Technique/Endurance Stair Climbing Direction Ascend and Descend Stair Climbing Technique Step Over Step,Step to Step Number of Steps Climbed 4 Stair Climbing Set # Repetitions (reps) 1 Comments Stair Climbing Comments Step to pattern to descend with LLE rotated out and slight trunk rotation to L. Step over step pattern for ascent. Uses spc and 1 rail to assist PT-OP-H Neuro Start: 10/23/23 16:45 Freq: Status: Active Protocol: Document 10/24/23 09:01 NM (Rec: 10/24/23 14:30 NM [id number]) Sensation Evaluation Gross Sensation Sensation Description Paresthesia Comments Summary Comments Decreased sensation reported on RLE for L3-4 dermatomes. Stocking-glove numbness reported BUE/BLE Deep Tendon Reflex & Clonus Assessment Deep Tendon Reflex Bilateral Patellar Deep Tendon Reflex 1+ Diminished Vital Signs Comments Vital Signs Comments seated vitals at rest, L arm: 144/90 mmHg, 88 bpm PT-OP-J Posture/Palpation/Skin Start: 10/23/23 16:45 Freq: Status: Active Protocol: Document 10/24/23 09:01 NM (Rec: 10/24/23 14:30 NM [id number]) Posture Evaluation Position Standing Head/C-Spine Posture Forward Head T-Spine Posture Increased Kyphosis Weight Distribution Decreased Wt.Bear on (L) Knee Posture (L) Genu Valgus,(R) Genu Valgus Ankle/Foot Posture (L) Pronated,(R) Pronated Comments Posture Comments Hx of scoliosis, correction with rods form T6-sacrum PT-OP-M Strength Start: 10/23/23 16:45 Freq: Status: Active Protocol: Document 10/24/23 09:01 NM (Rec: 10/24/23 14:30 NM [id number]) Hip Strength Hip Manual Muscle Testing Right Flexion (L2) 4- Good- Extension (S1) 4- Good- Abduction 4- Good- Adduction 4- Good- External Rotation 4- Good- Internal Rotation 4- Good- Left Flexion (L2) 3+ Fair+ Extension (S1) 4- Good- Abduction 3+ Fair+ Adduction 4- Good- External Rotation 4- Good- Internal Rotation 4- Good- Knee Strength Knee Manual Muscle Testing Right Flexion (S2) 4 Good Extension (L3) 4 Good Left Flexion (S2) 3+ Fair+ Extension (L3) 4- Good- Ankle/Foot Strength Ankle and Foot Manual Muscle Testing Right Dorsiflexion (L4) 4- Good- Plantarflexion (S1) 4- Good- Inversion 4- Good- Eversion (S1) 4- Good- Left Dorsiflexion (L4) 4- Good- Plantarflexion (S1) 4- Good- Inversion 4- Good- Eversion (S1) 4- Good- PT-OP-T Assessment and Plan Start: 10/23/23 16:45 Freq: Status: Active Protocol: Document 10/24/23 09:01 NM (Rec: 10/24/23 14:30 NM [id number]) Physical Therapy Assessment Rehab Potential Rehabilitation Potential Good Evaluation Complexity Number of Personal Factors/Comorbidities 3 or More Number of Body Systems Impaired 3 Clinical Presentation at Evaluation Stable Impairments Impairments Activity Tolerance,Balance, Edema,Functional Activities, Functional Mobility,Gait, Integument,Pain,Posture,ROM, Sensation,Soft Tissue Mobility ,Strength Goals Six Impairment HEP Short Term Goal (STG) Pt will report compliance with HEP at least 2-3x/wk in order to maximize progression with PT and promote independence with exercise STG Duration 6 weeks Custodial Goal (LTG) Pt will report compliance with HEP at least 3x/wk in order to promote independence with exercise after discharge from PT LTG Duration 12 weeks Five Impairment strength Short Term Goal (STG) Pt will improve global BLE strength to at least 4/5 MMT in order to demonstrate increased BLE strength for stability during ambulation, ADLs. STG Duration 6 weeks Ore Mixer Goal (LTG) Pt will improve global BLE strength to at least 4+/5 MMT in order to demonstrate increased BLE strength for stability during ambulation, ADLs. LTG Duration 12 weeks Four Impairment balance Impairment DGI 10/24 Short Term Goal (STG) Pt will increase DGI score to at least 15/24 in order to demonstrate decreased fall risk and improved balance STG Duration 6 weeks Ore Mixer Goal (LTG) Pt will increase DGI score to at least 20/24 in order to demonstrate decreased fall risk and improved balance LTG Duration 12 weeks Three Impairment balance Impairment Bautista 35/56 Short Term Goal (STG) Pt will increase Bautista score to at least 44/56 in order to demonstrate improved balance during gait and transfers, in addition to decreased fall risk STG Duration 6 weeks Custodial Goal (LTG) Pt will increase Bautista score to at least 48/56 in order to demonstrate improved balance during gait and transfers, in addition to decreased fall risk LTG Duration 12 weeks Two Impairment strength, gait, balance Impairment gait 1/2 mile with spc, 6 MWT distance 872 ft Short Term Goal (STG) Pt will improve 6 MWT distance by at least 100 ft in order to demonstrate improved activity tolerance, balance, and gait speed to decrease fall risk STG Duration 6 weeks Ore Mixer Goal (LTG) Pt will ambulate using LRAD during 6 MWT distance >1100 ft (1 MCID) in order to demonstrate improved activity tolerance, balance, and gait speed to decrease fall risk LTG Duration 12 weeks One Impairment strength, function Impairment 5x STS 15 seconds without UE assist, 20 plinth Short Term Goal (STG) Pt will be able to perform at least 5 STS from a chair without UE assist, using LRAD as needed in order to demonstrate improved BLE strength for transfers and mobility STG Duration 6 weeks Custodial Goal (LTG) Pt will be able to perform 5x STS in 12 seconds or less from plinth in order to meet age related norms and to demonstrate increased BLE strength LTG Duration 12 weeks Assessment Summary Assessment Pt is a 68 y.o. female presenting with balance and gait abnormalities. She has a significant PMH including spinal fusion related to scoliosis, cervical spine fusion, several L THAs, several DVTs. Recently, pt has experienced several DVTs ( last in 09/2023), which has impacted her mobility. Pt lives along and uses a spc for mobility due to balance. She reports falling due to LOB or tripping at least 1x/month. She has decreased L hip strength and observable ROM due to previous THAs; however, pt's BLE strength is limited, which impacts her functional mobility. Pt's mobility is also limited by her back pain. Her 6 MWT distance is 872 ft using an spc; she is below age /gender related norms (1765 ft ), and she demos slow gait speed, fatiguing easily. Pt's 5x STS time is 15 seconds from a 20 plinth (age norm 11.4 seconds); she is able to perform without hand use, but relies heavily on momentum and dependence on RLE due to decreased BLE strength. Pt's Bautista score is 35/56 and her DGI score is 10/24, indicating fall risk for both tests. Pt' s resting blood pressure 144/ 90 mmHg, which she reports is higher than normal. She is currently on permanent blood thinners due to recent DVTs. PT and pt discussed exam findings and POC; pt and PT in agreement. Pt would benefit from skilled PT for progressive BLE strengthening, gait training, and balance training in order to reduce fall risk, improve mobility, and increase activity tolerance. Physical Therapy Plan Frequency and Duration Frequency of Treatment 2x/Week Duration of treatment (weeks) 12 Plan of Care Start Date 10/24/23 Plan of Care End Date 01/19/24 Therapeutic Interventions Therapeutic Interventions Balance Training,Coordination Training,Gait Training,Home Exercise Program,Joint Mobilizations,Manual Therapy, Neuromuscular Re-education, Orthotic/Prosthetic Management ,Patient/Caregiver Education, Self-Care/Home Management, Sensory Integration,Soft Tissue Mobilization,Taping, Therapeutic Activities, Therapeutic Exercises Modalities Biofeedback,Cold Pack/Ice Massage,Electric Stimulation, Hot Packs,Ultrasound, Vasopneumatic Devices Next Visit Focus/Plan Next Note Type Treatment Note Next Visit Plan STS training, seated hip abd, LAQ, heel and toe raises ( trial standing), calf stretch Balance: hurdles, cones, step taps
--- NOTE | 2023-10-26 10:11 | PT.OTN ---
Current Diagnoses Unsteadiness on feet (10/26/23) Other lack of coordination (10/26/23) Weakness (10/26/23) Unspecified fall, initial encounter (10/26/23) Unspecified place in unspecified non-institutional (private) residence as the place of occurrence of the external cause (10/26/23) Physical Therapy Treatment Note PT-OP-A Visit Information Start: 10/23/23 16:45 Freq: Status: Active Protocol: Document 10/26/23 09:04 NM (Rec: 10/26/23 10:10 NM [id number]) Out-Patient Physical Therapy Visit Information Visit Information Visit Type Treatment Note Visit Note KX after 19 visits Visit Start Time 09:05 Visit Stop Time 09:45 Visit Number 2 Evaluation Information Evaluation Date 10/24/23 Precautions Precautions blood thinners, hx scoliosis and spinal fusion with rods, previous BIGG and DVT risk, FALL RISK take vitals and monitor during session PT-OP-B Current Condition Start: 10/23/23 16:45 Freq: Status: Active Protocol: Document 10/24/23 09:01 NM (Rec: 10/24/23 09:48 NM [id number]) Current Condition History of Current Condition Current Complaints falls, balance, weakness History of Current Condition Pt presents with balance and gait abnormalities. Pt has 3 BIGG on LLE (first in 2009), metal rods/fusion of T6-sacrum (unable to lay flat), several hernias. 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 Pt has a hx of falls, last in September 2023 with several contusions in ribs; waited 1.5 wk to go to [facility] because unable to move, went to Dr. Pt reports that she falls at least 1x/month. She reports tendency to over do it leading to increased fatigue and weakness. She reports that her balance is off. She uses spc (using for 1.5 years, for all mobility) for balance, uses in R hand. No vertigo, dizziness, denies falls related to changes in BP ; states falls due to tripping or not picking up feet. No throw rugs in house. Has neuropathy of B feet and hands , numbness in both. Prior Treatments and Tests previous PT for hips and back (no twisting, limited ROM. 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 She was sore after IE, especially in L hip. Did some gardening IE, did not do any bending (set up saw planks)- which worked well. PT-OP-D Balance Start: 10/23/23 16:45 Freq: Status: Active Protocol: Document 10/24/23 09:01 NM (Rec: 10/24/23 16:08 NM [id number]) Balance Tests Bautista Balance Test Bautista Balance Test Score 35/56 Single Limb Standing Single Limb- Right unable Single Limb- Left unable Tandem Tandem Standing unable to maintain w/o LOB during step,stance PT-OP-E Functional Tests Start: 10/23/23 16:45 Freq: Status: Active Protocol: Document 10/24/23 09:01 NM (Rec: 10/24/23 09:48 NM [id number]) Functional Tests 6 Minute Walk Test Distance 872 ft Device Used spc Comments reports low back pain, slow gait speed, fatigues Dynamic Gait Index (DGI) Score 1024 Five Times Sit to Stand Test Score 15 Comments back pain, slow, 20 ht Timed Up and Go (TUG) Score 11 seconds Comments with spc, increased time to sit, increased sway PT-OP-F Manual Assessment Start: 10/23/23 16:45 Freq: Status: Active Protocol: Document 10/24/23 09:01 NM (Rec: 10/24/23 14:30 NM [id number]) Manual Assessments Soft Tissue Assessment Soft Tissue Mobility Assessment Decreased ankle dorsiflexion observed with gait, decreased active L hip AROM Joint Mobility Assessment Joint Mobility Assessment Decreased lumbar spine and L hip AROM due to previous surgeries, recent hernia repair leading to decreased abdominal strength PT-OP-G Mobility & Gait Start: 10/23/23 16:45 Freq: Status: Active Protocol: Document 10/24/23 09:01 NM (Rec: 10/24/23 14:30 NM [id number]) OP Gait Assessment Gait Gait Assistance Required: Standby Assistance Distance (Feet) 872 Assistive Devices Assistive Device Gait Belt,Straight Cane Gait Deviations General Gait Pattern Antalgic,Decreased Stride Length,Flexed Trunk Factors Limiting Gait Function Factors Limiting Gait Function Decreased Activity Tolerance, Decreased Strength,Limited Range of Motion,Pain,Poor Balance Comments Gait Comments Decreased L stance time, spc in R hand Stair Climbing Evaluation Evaluation Level of Assist On Stairs Contact Guard Assistance Devices Stair Climbing Assistive Devices Straight Cane,Left Railing Technique/Endurance Stair Climbing Direction Ascend and Descend Stair Climbing Technique Step Over Step,Step to Step Number of Steps Climbed 4 Stair Climbing Set # Repetitions (reps) 1 Comments Stair Climbing Comments Step to pattern to descend with LLE rotated out and slight trunk rotation to L. Step over step pattern for ascent. Uses spc and 1 rail to assist PT-OP-H Neuro Start: 10/23/23 16:45 Freq: Status: Active Protocol: Document 10/24/23 09:01 NM (Rec: 10/24/23 14:30 NM [id number]) Sensation Evaluation Gross Sensation Sensation Description Paresthesia Comments Summary Comments Decreased sensation reported on RLE for L3-4 dermatomes. Stocking-glove numbness reported BUE/BLE Deep Tendon Reflex & Clonus Assessment Deep Tendon Reflex Bilateral Patellar Deep Tendon Reflex 1+ Diminished Vital Signs Comments Vital Signs Comments seated vitals at rest, L arm: 144/90 mmHg, 88 bpm PT-OP-J Posture/Palpation/Skin Start: 10/23/23 16:45 Freq: Status: Active Protocol: Document 10/24/23 09:01 NM (Rec: 10/24/23 14:30 NM [id number]) Posture Evaluation Position Standing Head/C-Spine Posture Forward Head T-Spine Posture Increased Kyphosis Weight Distribution Decreased Wt.Bear on (L) Knee Posture (L) Genu Valgus,(R) Genu Valgus Ankle/Foot Posture (L) Pronated,(R) Pronated Comments Posture Comments Hx of scoliosis, correction with rods form T6-sacrum PT-OP-M Strength Start: 10/23/23 16:45 Freq: Status: Active Protocol: Document 10/24/23 09:01 NM (Rec: 10/24/23 14:30 NM [id number]) Hip Strength Hip Manual Muscle Testing Right Flexion (L2) 4- Good- Extension (S1) 4- Good- Abduction 4- Good- Adduction 4- Good- External Rotation 4- Good- Internal Rotation 4- Good- Left Flexion (L2) 3+ Fair+ Extension (S1) 4- Good- Abduction 3+ Fair+ Adduction 4- Good- External Rotation 4- Good- Internal Rotation 4- Good- Knee Strength Knee Manual Muscle Testing Right Flexion (S2) 4 Good Extension (L3) 4 Good Left Flexion (S2) 3+ Fair+ Extension (L3) 4- Good- Ankle/Foot Strength Ankle and Foot Manual Muscle Testing Right Dorsiflexion (L4) 4- Good- Plantarflexion (S1) 4- Good- Inversion 4- Good- Eversion (S1) 4- Good- Left Dorsiflexion (L4) 4- Good- Plantarflexion (S1) 4- Good- Inversion 4- Good- Eversion (S1) 4- Good- PT-OP-Q Treatments Start: 10/23/23 16:45 Freq: Status: Active Protocol: Document 10/26/23 09:04 NM (Rec: 10/26/23 10:10 NM [id number]) Therapeutic Exercises Sitting Exercises chair push up Side bilateral Resistance body weight Equipment Used mesh chair with arm rests, mirror for visual cues Reps/Minutes 1x10, 2x5 Comments cued to limit leg use, core brace; edu using arms for transfers if fall LAQ Side bilateral Resistance 2# ankle weights Reps/Minutes 2x10 with 3 hold Comments pain free, but feels the burn on quad hip abduction Sitting Exercise Name 1. isometric, 2. clams Side bilateral Resistance lvl 2 teal tb around thighs Equipment Used mirror for visual cues to promote upright posture Reps/Minutes 1. 2x30, 2. 2x10 Comments reports L hip discomfort that dec w/ upright posture mirror, med-hard Standing Exercises heel raise Side bilateral Resistance body weight Equipment Used B hand support on stairs Reps/Minutes 2x10 Comments cued elongated posture, core stabilization, equal WB Therapeutic Activity Therapeutic Activity sit to stand Name close SBA Reps/Minutes 2x8, several reps throughout session from mesh chair Comments From low plinth, arms reaching in front of pt, mirror provided for visual cues to promote neutral posture and midline positioning. Cued for foot placement, anterior weight shift during ascent for more BLE use and eccentric control with descent, wider MARTINE, equal WB and upright posture Neuro Re-Education Treatment Balance Activities step taps Details CGA to steady Surface stable Equipment 6 steps, 1 hand rail use ( flat hand)- R side Reps/Duration 1x10 ea Comments Requires increased time. Pt placing foot on 6 step. Cued for weight shift, TKE stance LE, slower stepping for control. Reports L hip pain with WB on 1 leg, demos slight knee buckle without LOB, so d /c after 10 reps hurdles Details CGA to steady Surface stable Equipment 5 hurdles, fwd stepping with 2 feet btwn hurdles, spc for additional MARTINE Reps/Duration 2 sets ea Comments Requires increased time. Cued for ankle dorsiflexion to improve foot clearance and knee flexion when stepping, move closer to avni prior to stepping, weight shift onto stance LE. No LOB but strong use of UE with spc for stability, unable to perform w /o spc at this time Self-Care/Home Management Treatment Education Patient Education Fall Risk,Home Exercise Program,Safety Other Education Education during activities on safety during HEP. 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 STG Duration 6 weeks Tunnel Elastic Operator Chainstitch Goal (LTG) Pt will improve global BLE strength to at least 4+/5 MMT in order to demonstrate increased BLE strength for stability during ambulation, ADLs. LTG Duration 12 weeks Four Impairment balance Impairment DGI 10/24 Short Term Goal (STG) Pt will increase DGI score to at least 15/24 in order to demonstrate decreased fall risk and improved balance STG Duration 6 weeks Tunnel Elastic Operator Chainstitch Goal (LTG) Pt will increase DGI score to at least 20/24 in order to demonstrate decreased fall risk and improved balance LTG Duration 12 weeks Three Impairment balance Impairment Bautista 35/56 Short Term Goal (STG) Pt will increase Bautista score to at least 44/56 in order to demonstrate improved balance during gait and transfers, in addition to decreased fall risk STG Duration 6 weeks Tunnel Elastic Operator Chainstitch Goal (LTG) Pt will increase Bautista score to at least 48/56 in order to demonstrate improved balance during gait and transfers, in addition to decreased fall risk LTG Duration 12 weeks Two Impairment strength, gait, balance Impairment gait 1/2 mile with spc, 6 MWT distance 872 ft Short Term Goal (STG) Pt will improve 6 MWT distance by at least 100 ft in order to demonstrate improved activity tolerance, balance, and gait speed to decrease fall risk STG Duration 6 weeks Half-Way Goal (LTG) Pt will ambulate using LRAD during 6 MWT distance >1100 ft (1 MCID) in order to demonstrate improved activity tolerance, balance, and gait speed to decrease fall risk LTG Duration 12 weeks One Impairment strength, function Impairment 5x STS 15 seconds without UE assist, 20 plinth Short Term Goal (STG) Pt will be able to perform at least 5 STS from a chair without UE assist, using LRAD as needed in order to demonstrate improved BLE strength for transfers and mobility STG Duration 6 weeks Half-Way Goal (LTG) Pt will be able to perform 5x STS in 12 seconds or less from plinth in order to meet age related norms and to demonstrate increased BLE strength LTG Duration 12 weeks Assessment Summary Assessment Pt tolerated session well. Initiated HEP with BLE strengthening to address impairments in BLE strength affecting pt's balance. During sit to stand training, pt requires cues for midline positioning and to promote anterior weight shift during ascent/descent. Demos improved eccentric control until fatigue at end of session with cueing. Pt cued extensively throughout session to weight shift toward LLE and maintain equal WB between BLE. Pt would benefit from additional quad and hip abduction strengthening. Trialed step taps on 6 step, which pt reports increases L hip pain when stance LE; discontinued due to pain at this time, but pain signficantly reduced after activity. Pt has tendency on both step taps, during gait, and with hurdles for slight L foot drop; cued for ankle dorsiflexion to promote both knee flexion for foot clearance and to limit catching on obstacles. Pt would benefit from skilled PT to increase BLE strength and decrease fall risk. Physical Therapy Plan Frequency and Duration Frequency of Treatment 2x/Week Duration of treatment (weeks) 12 Plan of Care Start Date 10/24/23 Plan of Care End Date 01/19/24 Therapeutic Interventions Therapeutic Interventions Balance Training,Coordination Training,Gait Training,Home Exercise Program,Joint Mobilizations,Manual Therapy, Neuromuscular Re-education, Orthotic/Prosthetic Management ,Patient/Caregiver Education, Self-Care/Home Management, Sensory Integration,Soft Tissue Mobilization,Taping, Therapeutic Activities, Therapeutic Exercises Modalities Biofeedback,Cold Pack/Ice Massage,Electric Stimulation, Hot Packs,Ultrasound, Vasopneumatic Devices Next Visit Focus/Plan Next Note Type Treatment Note Next Visit Plan Next session: review STS ( lower height as able, add band or weight), seated hip abd Progress to leg press, balance (hurdles, cones, WS, lower step tap), heel and toe raises (trial standing), calf stretch
--- NOTE | 2023-10-30 17:26 | PT.OTN ---
Current Diagnoses Unsteadiness on feet (10/30/23) Other lack of coordination (10/30/23) Weakness (10/30/23) Unspecified fall, initial encounter (10/30/23) Unspecified place in unspecified non-institutional (private) residence as the place of occurrence of the external cause (10/30/23) Physical Therapy Treatment Note PT-OP-A Visit Information Start: 10/23/23 16:45 Freq: Status: Active Protocol: Document 10/30/23 08:06 AB (Rec: 10/30/23 09:57 AB [id number]) Out-Patient Physical Therapy Visit Information Visit Information Visit Type Treatment Note Visit Note KX after 19 visits Visit Start Time 09:02 Visit Stop Time 09:47 Visit Number 3 Number of IT TECHNICAL SPECIALIST Visits 1 Evaluation Information Evaluation Date 10/24/23 Precautions Precautions blood thinners, hx scoliosis and spinal fusion with rods, previous BIGG and DVT risk, FALL RISK take vitals and monitor during session PT-OP-B Current Condition Start: 10/23/23 16:45 Freq: Status: Active Protocol: Document 10/24/23 09:01 NM (Rec: 10/24/23 09:48 NM [id number]) Current Condition History of Current Condition Current Complaints falls, balance, weakness History of Current Condition Pt presents with balance and gait abnormalities. Pt has 3 BIGG on LLE (first in 2009), metal rods/fusion of T6-sacrum (unable to lay flat), several hernias. 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 Pt has a hx of falls, last in September 2023 with several contusions in ribs; waited 1.5 wk to go to MD because unable to move, went to Dr. Pt reports that she falls at least 1x/month. She reports tendency to over do it leading to increased fatigue and weakness. She reports that her balance is off. She uses spc (using for 1.5 years, for all mobility) for balance, uses in R hand. No vertigo, dizziness, denies falls related to changes in BP ; states falls due to tripping or not picking up feet. No throw rugs in house. Has neuropathy of B feet and hands , numbness in both. Prior Treatments and Tests previous PT for hips and back (no twisting, limited ROM. 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 Left UE seated BP 154/96 HR 91 BPM start of session PT-OP-D Balance Start: 10/23/23 16:45 Freq: Status: Active Protocol: Document 10/24/23 09:01 NM (Rec: 10/24/23 16:08 NM [id number]) Balance Tests Bautista Balance Test Bautista Balance Test Score 35/56 Single Limb Standing Single Limb- Right unable Single Limb- Left unable Tandem Tandem Standing unable to maintain w/o LOB during step,stance PT-OP-E Functional Tests Start: 10/23/23 16:45 Freq: Status: Active Protocol: Document 10/24/23 09:01 NM (Rec: 10/24/23 09:48 NM [id number]) Functional Tests 6 Minute Walk Test Distance 872 ft Device Used spc Comments reports low back pain, slow gait speed, fatigues Dynamic Gait Index (DGI) Score 10/24 Five Times Sit to Stand Test Score 15 Comments back pain, slow, 20 ht Timed Up and Go (TUG) Score 11 seconds Comments with spc, increased time to sit, increased sway PT-OP-F Manual Assessment Start: 10/23/23 16:45 Freq: Status: Active Protocol: Document 10/24/23 09:01 NM (Rec: 10/24/23 14:30 NM [id number]) Manual Assessments Soft Tissue Assessment Soft Tissue Mobility Assessment Decreased ankle dorsiflexion observed with gait, decreased active L hip AROM Joint Mobility Assessment Joint Mobility Assessment Decreased lumbar spine and L hip AROM due to previous surgeries, recent hernia repair leading to decreased abdominal strength PT-OP-G Mobility & Gait Start: 10/23/23 16:45 Freq: Status: Active Protocol: Document 10/24/23 09:01 NM (Rec: 10/24/23 14:30 NM [id number]) OP Gait Assessment Gait Gait Assistance Required: Standby Assistance Distance (Feet) 872 Assistive Devices Assistive Device Gait Belt,Straight Cane Gait Deviations General Gait Pattern Antalgic,Decreased Stride Length,Flexed Trunk Factors Limiting Gait Function Factors Limiting Gait Function Decreased Activity Tolerance, Decreased Strength,Limited Range of Motion,Pain,Poor Balance Comments Gait Comments Decreased L stance time, spc in R hand Stair Climbing Evaluation Evaluation Level of Assist On Stairs Contact Guard Assistance Devices Stair Climbing Assistive Devices Straight Cane,Left Railing Technique/Endurance Stair Climbing Direction Ascend and Descend Stair Climbing Technique Step Over Step,Step to Step Number of Steps Climbed 4 Stair Climbing Set # Repetitions (reps) 1 Comments Stair Climbing Comments Step to pattern to descend with LLE rotated out and slight trunk rotation to L. Step over step pattern for ascent. Uses spc and 1 rail to assist PT-OP-H Neuro Start: 10/23/23 16:45 Freq: Status: Active Protocol: Document 10/24/23 09:01 NM (Rec: 10/24/23 14:30 NM [id number]) Sensation Evaluation Gross Sensation Sensation Description Paresthesia Comments Summary Comments Decreased sensation reported on RLE for L3-4 dermatomes. Stocking-glove numbness reported BUE/BLE Deep Tendon Reflex & Clonus Assessment Deep Tendon Reflex Bilateral Patellar Deep Tendon Reflex 1+ Diminished Vital Signs Comments Vital Signs Comments seated vitals at rest, L arm: 144/90 mmHg, 88 bpm PT-OP-J Posture/Palpation/Skin Start: 10/23/23 16:45 Freq: Status: Active Protocol: Document 10/24/23 09:01 NM (Rec: 10/24/23 14:30 NM [id number]) Posture Evaluation Position Standing Head/C-Spine Posture Forward Head T-Spine Posture Increased Kyphosis Weight Distribution Decreased Wt.Bear on (L) Knee Posture (L) Genu Valgus,(R) Genu Valgus Ankle/Foot Posture (L) Pronated,(R) Pronated Comments Posture Comments Hx of scoliosis, correction with rods form T6-sacrum PT-OP-M Strength Start: 10/23/23 16:45 Freq: Status: Active Protocol: Document 10/24/23 09:01 NM (Rec: 10/24/23 14:30 NM [id number]) Hip Strength Hip Manual Muscle Testing Right Flexion (L2) 4- Good- Extension (S1) 4- Good- Abduction 4- Good- Adduction 4- Good- External Rotation 4- Good- Internal Rotation 4- Good- Left Flexion (L2) 3+ Fair+ Extension (S1) 4- Good- Abduction 3+ Fair+ Adduction 4- Good- External Rotation 4- Good- Internal Rotation 4- Good- Knee Strength Knee Manual Muscle Testing Right Flexion (S2) 4 Good Extension (L3) 4 Good Left Flexion (S2) 3+ Fair+ Extension (L3) 4- Good- Ankle/Foot Strength Ankle and Foot Manual Muscle Testing Right Dorsiflexion (L4) 4- Good- Plantarflexion (S1) 4- Good- Inversion 4- Good- Eversion (S1) 4- Good- Left Dorsiflexion (L4) 4- Good- Plantarflexion (S1) 4- Good- Inversion 4- Good- Eversion (S1) 4- Good- PT-OP-Q Treatments Start: 10/23/23 16:45 Freq: Status: Active Protocol: Document 10/30/23 08:06 AB (Rec: 10/30/23 09:57 AB [id number]) Therapeutic Exercises Sitting Exercises Seated breathing from diaphragm Reps/Minutes 3 min Comments Pt ed use of self tactile cues for breathing from diaphragm hip abduction Sitting Exercise Name 1. isometric, 2. clams Side bilateral Resistance lvl 2 teal tb around thighs Equipment Used mirror for visual cues to promote upright posture Reps/Minutes 1. 2x30/38 seconds, 2. 2x12 Comments reports L hip discomfort that dec w/ upright posture mirror, med-hard Standing Exercises heel raise Side bilateral Resistance body weight Equipment Used B hand support on stairs Reps/Minutes 2x10 Comments cued elongated posture, core stabilization, equal WB Neuro Re-Education Treatment Balance Activities tandem stepping Equipment 10 feet X 5 Comments CGA retro stepping Reps/Duration 5 feet Comments CGA step taps Comments Unable on 6 and 4 inch step, X10 with 2 inch step tyler CGA to minimal assist PT-OP-T Assessment and Plan Start: 10/23/23 16:45 Freq: Status: Active Protocol: Document 10/30/23 08:06 AB (Rec: 10/30/23 09:57 AB [id number]) Physical Therapy Assessment Goals Six Impairment HEP Short Term Goal (STG) Pt will report compliance with HEP at least 2-3x/wk in order to maximize progression with PT and promote independence with exercise STG Duration 6 weeks Six Pack Packer Goal (LTG) Pt will report compliance with HEP at least 3x/wk in order to promote independence with exercise after discharge from PT LTG Duration 12 weeks Five Impairment strength Short Term Goal (STG) Pt will improve global BLE strength to at least 4/5 MMT in order to demonstrate increased BLE strength for stability during ambulation, ADLs. STG Duration 6 weeks Six Pack Packer Goal (LTG) Pt will improve global BLE strength to at least 4+/5 MMT in order to demonstrate increased BLE strength for stability during ambulation, ADLs. LTG Duration 12 weeks Four Impairment balance Impairment DGI 10/24 Short Term Goal (STG) Pt will increase DGI score to at least 15/24 in order to demonstrate decreased fall risk and improved balance STG Duration 6 weeks Intermediate Goal (LTG) Pt will increase DGI score to at least 20/24 in order to demonstrate decreased fall risk and improved balance LTG Duration 12 weeks Three Impairment balance Impairment Bautista 35/56 Short Term Goal (STG) Pt will increase Bautista score to at least 44/56 in order to demonstrate improved balance during gait and transfers, in addition to decreased fall risk STG Duration 6 weeks Six Pack Packer Goal (LTG) Pt will increase Bautista score to at least 48/56 in order to demonstrate improved balance during gait and transfers, in addition to decreased fall risk LTG Duration 12 weeks Two Impairment strength, gait, balance Impairment gait 1/2 mile with spc, 6 MWT distance 872 ft Short Term Goal (STG) Pt will improve 6 MWT distance by at least 100 ft in order to demonstrate improved activity tolerance, balance, and gait speed to decrease fall risk STG Duration 6 weeks Intermediate Goal (LTG) Pt will ambulate using LRAD during 6 MWT distance >1100 ft (1 MCID) in order to demonstrate improved activity tolerance, balance, and gait speed to decrease fall risk LTG Duration 12 weeks One Impairment strength, function Impairment 5x STS 15 seconds without UE assist, 20 plinth Short Term Goal (STG) Pt will be able to perform at least 5 STS from a chair without UE assist, using LRAD as needed in order to demonstrate improved BLE strength for transfers and mobility STG Duration 6 weeks Six Pack Packer Goal (LTG) Pt will be able to perform 5x STS in 12 seconds or less from plinth in order to meet age related norms and to demonstrate increased BLE strength LTG Duration 12 weeks Assessment Summary Assessment Post heel raises and hip abduction exercises BP left UE seated 158/97 HR 93, post breathing from diaphragm 141/ 91 HR 94 post balance end of session 145/92 HR 92 left UE seated. Patient advised to make MD aware of blood pressure readings this session and given the blood pressure readings in writing end of session. Physical Therapy Plan Frequency and Duration Frequency of Treatment 2x/Week Duration of treatment (weeks) 12 Plan of Care Start Date 10/24/23 Plan of Care End Date 01/19/24 Next Visit Focus/Plan Next Note Type Treatment Note Next Visit Plan Take vitals Next session: review STS ( lower height as able, add band or weight), seated hip abd Progress to leg press, balance (hurdles, cones, WS, lower step tap), heel and toe raises (trial standing), calf stretch
--- NOTE | 2023-11-02 09:14 | PT-OP ANOTE ---
Nicole on phone on initiation of session, reports she was speaking with MD office due to nose bleeds and excessive bruising. Patient reports her blood thinner medication was changed and she was making MD aware of new symptoms. Spoke with PT Stephanie Wills, and patient has been made aware that she should hold all home exercises until cleared by MD/INR/blood tests are WNL, and this session of physical therapy will be cancelled. Post this discussion, Nicole made this therapist aware that MD office called her back (while therapists were discussing situation) and she has a testing scheduled for tomorrow.
--- NOTE | 2023-11-06 16:01 | PT.OTN ---
Current Diagnoses Unsteadiness on feet (11/06/23) Other lack of coordination (11/06/23) Weakness (11/06/23) Unspecified fall, initial encounter (11/06/23) Unspecified place in unspecified non-institutional (private) residence as the place of occurrence of the external cause (11/06/23) Physical Therapy Treatment Note PT-OP-A Visit Information Start: 10/23/23 16:45 Freq: Status: Active Protocol: Document 11/06/23 08:16 NM (Rec: 11/06/23 09:03 NM [id number]) Out-Patient Physical Therapy Visit Information Visit Information Visit Type Treatment Note Visit Start Time 08:16 Visit Stop Time 08:58 Visit Number 4 Evaluation Information Evaluation Date 10/24/23 Precautions Precautions blood thinners, hx scoliosis and spinal fusion with rods, previous BIGG and DVT risk, FALL RISK take vitals and monitor during session PT-OP-B Current Condition Start: 10/23/23 16:45 Freq: Status: Active Protocol: Document 10/24/23 09:01 NM (Rec: 10/24/23 09:48 NM [id number]) Current Condition History of Current Condition Current Complaints falls, balance, weakness History of Current Condition Pt presents with balance and gait abnormalities. Pt has 3 BIGG on LLE (first in 2009), metal rods/fusion of T6-sacrum (unable to lay flat), several hernias. 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 Pt has a hx of falls, last in September 2023 with several contusions in ribs; waited 1.5 wk to go to [facility] because unable to move, went to . Pt reports that she falls at least 1x/month. She reports tendency to over do it leading to increased fatigue and weakness. She reports that her balance is off. She uses spc (using for 1.5 years, for all mobility) for balance, uses in R hand. No vertigo, dizziness, denies falls related to changes in BP ; states falls due to tripping or not picking up feet. No throw rugs in house. Has neuropathy of B feet and hands , numbness in both. Prior Treatments and Tests previous PT for hips and back (no twisting, limited ROM. 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 Reports no SOB, no bleeding any more. Visited PCP on Monday, switched to lasix. She has continued exercises at home, without issue at home. Pt reports no change in her back pain. PT-OP-D Balance Start: 10/23/23 16:45 Freq: Status: Active Protocol: Document 10/24/23 09:01 NM (Rec: 10/24/23 16:08 NM [id number]) Balance Tests Bautista Balance Test Bautista Balance Test Score 35/56 Single Limb Standing Single Limb- Right unable Single Limb- Left unable Tandem Tandem Standing unable to maintain w/o LOB during step,stance PT-OP-E Functional Tests Start: 10/23/23 16:45 Freq: Status: Active Protocol: Document 10/24/23 09:01 NM (Rec: 10/24/23 09:48 NM [id number]) Functional Tests 6 Minute Walk Test Distance 872 ft Device Used spc Comments reports low back pain, slow gait speed, fatigues Dynamic Gait Index (DGI) Score 10/24 Five Times Sit to Stand Test Score 15 Comments back pain, slow, 20 ht Timed Up and Go (TUG) Score 11 seconds Comments with spc, increased time to sit, increased sway PT-OP-F Manual Assessment Start: 10/23/23 16:45 Freq: Status: Active Protocol: Document 10/24/23 09:01 NM (Rec: 10/24/23 14:30 NM [id number]) Manual Assessments Soft Tissue Assessment Soft Tissue Mobility Assessment Decreased ankle dorsiflexion observed with gait, decreased active L hip AROM Joint Mobility Assessment Joint Mobility Assessment Decreased lumbar spine and L hip AROM due to previous surgeries, recent hernia repair leading to decreased abdominal strength PT-OP-G Mobility & Gait Start: 10/23/23 16:45 Freq: Status: Active Protocol: Document 10/24/23 09:01 NM (Rec: 10/24/23 14:30 NM [id number]) OP Gait Assessment Gait Gait Assistance Required: Standby Assistance Distance (Feet) 872 Assistive Devices Assistive Device Gait Belt,Straight Cane Gait Deviations General Gait Pattern Antalgic,Decreased Stride Length,Flexed Trunk Factors Limiting Gait Function Factors Limiting Gait Function Decreased Activity Tolerance, Decreased Strength,Limited Range of Motion,Pain,Poor Balance Comments Gait Comments Decreased L stance time, spc in R hand Stair Climbing Evaluation Evaluation Level of Assist On Stairs Contact Guard Assistance Devices Stair Climbing Assistive Devices Straight Cane,Left Railing Technique/Endurance Stair Climbing Direction Ascend and Descend Stair Climbing Technique Step Over Step,Step to Step Number of Steps Climbed 4 Stair Climbing Set # Repetitions (reps) 1 Comments Stair Climbing Comments Step to pattern to descend with LLE rotated out and slight trunk rotation to L. Step over step pattern for ascent. Uses spc and 1 rail to assist PT-OP-H Neuro Start: 10/23/23 16:45 Freq: Status: Active Protocol: Document 10/24/23 09:01 NM (Rec: 10/24/23 14:30 NM [id number]) Sensation Evaluation Gross Sensation Sensation Description Paresthesia Comments Summary Comments Decreased sensation reported on RLE for L3-4 dermatomes. Stocking-glove numbness reported BUE/BLE Deep Tendon Reflex & Clonus Assessment Deep Tendon Reflex Bilateral Patellar Deep Tendon Reflex 1+ Diminished Vital Signs Comments Vital Signs Comments seated vitals at rest, L arm: 144/90 mmHg, 88 bpm PT-OP-J Posture/Palpation/Skin Start: 10/23/23 16:45 Freq: Status: Active Protocol: Document 10/24/23 09:01 NM (Rec: 10/24/23 14:30 NM [id number]) Posture Evaluation Position Standing Head/C-Spine Posture Forward Head T-Spine Posture Increased Kyphosis Weight Distribution Decreased Wt.Bear on (L) Knee Posture (L) Genu Valgus,(R) Genu Valgus Ankle/Foot Posture (L) Pronated,(R) Pronated Comments Posture Comments Hx of scoliosis, correction with rods form T6-sacrum PT-OP-M Strength Start: 10/23/23 16:45 Freq: Status: Active Protocol: Document 10/24/23 09:01 NM (Rec: 10/24/23 14:30 NM [id number]) Hip Strength Hip Manual Muscle Testing Right Flexion (L2) 4- Good- Extension (S1) 4- Good- Abduction 4- Good- Adduction 4- Good- External Rotation 4- Good- Internal Rotation 4- Good- Left Flexion (L2) 3+ Fair+ Extension (S1) 4- Good- Abduction 3+ Fair+ Adduction 4- Good- External Rotation 4- Good- Internal Rotation 4- Good- Knee Strength Knee Manual Muscle Testing Right Flexion (S2) 4 Good Extension (L3) 4 Good Left Flexion (S2) 3+ Fair+ Extension (L3) 4- Good- Ankle/Foot Strength Ankle and Foot Manual Muscle Testing Right Dorsiflexion (L4) 4- Good- Plantarflexion (S1) 4- Good- Inversion 4- Good- Eversion (S1) 4- Good- Left Dorsiflexion (L4) 4- Good- Plantarflexion (S1) 4- Good- Inversion 4- Good- Eversion (S1) 4- Good- PT-OP-Q Treatments Start: 10/23/23 16:45 Freq: Status: Active Protocol: Document 11/06/23 08:16 NM (Rec: 11/06/23 09:03 NM [id number]) Therapeutic Exercises Sitting Exercises abdominal isometrics Sitting Exercise Name core for low back pain: 1. rectus abdominus, 2. obliques Side bilateral Equipment Used airex pad on thighs Reps/Minutes 1 x10 with 5 hold ea Comments reports good activation, pain free sit to stand Side bilateral Resistance lvl 2 teal tb around thighs Equipment Used band for valgus, mesh chair Reps/Minutes 2x5 Comments fatiguing; cued to prevent segmental motion hip abduction Sitting Exercise Name isometric Side bilateral Resistance lvl 2 teal tb around thighs Equipment Used mirror for visual cues to promote upright posture Reps/Minutes 2x60 Comments reports sore and fatiguing but no pain Standing Exercises toe raises Standing Exercise Name trialed in PT Side bilateral Resistance AROM Equipment Used hand support on //bars Reps/Minutes 1x10 Comments cued to hip rock back, pain free but challenging side steps Side bilateral Resistance AROM Equipment Used B hand support on //bar for balance Reps/Minutes 2x10 ft Comments cued TKE, neutral hip (RLE tendency to ER) heel raise Side bilateral Resistance body weight Equipment Used B hand support on stairs Reps/Minutes 2x10 Comments cued elongated posture, core stabilization, equal WB Neuro Re-Education Treatment Balance Activities head turns Details stance, CGA Surface stable Reps/Duration 1x30 ea Comments 1. horizontal head turns 2. vertical head nods More challenged with vertical head nods vs turns, demos increased trunk sway with turns, no LOB foam Details stance, CGA Surface airex pad, unstable Equipment // bars, UE assist to step up Reps/Duration 60 Comments Reports low back pain after 60 seconds. Increased sway trunk , ankle strategy, no LOB but challenging tandem stepping Details CGA Surface stable Equipment 1x10 ft Comments CGA retro stepping Details CGA Equipment hands hover over //bars Reps/Duration 2x10 ft Comments Fwd<>retro walking Challenged with gait, R stance > R trunk lean with stance Self-Care/Home Management Treatment Education Patient Education Home Exercise Program,Safety Caregiver Education 139/86 L arm, at rest, start of session Other Education HEP: band added to STS; education on continued safety during gait with AD use, HEP with stable surface nearby for balance as needed PT-OP-T Assessment and Plan Start: 10/23/23 16:45 Freq: Status: Active Protocol: Document 11/06/23 08:16 NM (Rec: 11/06/23 09:03 NM [id number]) Physical Therapy Assessment Goals Six Impairment HEP Short Term Goal (STG) Pt will report compliance with HEP at least 2-3x/wk in order to maximize progression with PT and promote independence with exercise STG Duration 6 weeks Vulcanizer Goal (LTG) Pt will report compliance with HEP at least 3x/wk in order to promote independence with exercise after discharge from PT LTG Duration 12 weeks Five Impairment strength Short Term Goal (STG) Pt will improve global BLE strength to at least 4/5 MMT in order to demonstrate increased BLE strength for stability during ambulation, ADLs. STG Duration 6 weeks Penitentiary Goal (LTG) Pt will improve global BLE strength to at least 4+/5 MMT in order to demonstrate increased BLE strength for stability during ambulation, ADLs. LTG Duration 12 weeks Four Impairment balance Impairment DGI 10/24 Short Term Goal (STG) Pt will increase DGI score to at least 15/24 in order to demonstrate decreased fall risk and improved balance STG Duration 6 weeks Vulcanizer Goal (LTG) Pt will increase DGI score to at least 20/24 in order to demonstrate decreased fall risk and improved balance LTG Duration 12 weeks Three Impairment balance Impairment Bautista 35/56 Short Term Goal (STG) Pt will increase Bautista score to at least 44/56 in order to demonstrate improved balance during gait and transfers, in addition to decreased fall risk STG Duration 6 weeks Penitentiary Goal (LTG) Pt will increase Bautista score to at least 48/56 in order to demonstrate improved balance during gait and transfers, in addition to decreased fall risk LTG Duration 12 weeks Two Impairment strength, gait, balance Impairment gait 1/2 mile with spc, 6 MWT distance 872 ft Short Term Goal (STG) Pt will improve 6 MWT distance by at least 100 ft in order to demonstrate improved activity tolerance, balance, and gait speed to decrease fall risk STG Duration 6 weeks Vulcanizer Goal (LTG) Pt will ambulate using LRAD during 6 MWT distance >1100 ft (1 MCID) in order to demonstrate improved activity tolerance, balance, and gait speed to decrease fall risk LTG Duration 12 weeks One Impairment strength, function Impairment 5x STS 15 seconds without UE assist, 20 plinth Short Term Goal (STG) Pt will be able to perform at least 5 STS from a chair without UE assist, using LRAD as needed in order to demonstrate improved BLE strength for transfers and mobility STG Duration 6 weeks Penitentiary Goal (LTG) Pt will be able to perform 5x STS in 12 seconds or less from plinth in order to meet age related norms and to demonstrate increased BLE strength LTG Duration 12 weeks Assessment Summary Assessment Pt tolerated session well without any SOB, pain in BLE, or increased fatigue. Trialed side steps for hip abduction strengthening. Pt has tendency for RLE hip ER compensation; cued for upright posture, neutral hip positioning and larger step. Initiated seated abdominal isometrics to initiated core strengthening for improved trunk stabilization during balance activities and gait. Pt reports less low back pain with seated core activation as unable to tolerate supine activities. Demos improved sit to stand from lower chair vs plinth. Pt has knee valgus/ pronation compensation; verbally cued for hip hinge motion and to maintain smooth instead of segmental motion. Pt challenged with balance activities, especially with narrow MARTINE and head movements. Pt requires CGA during head turns, stance, and forward/ reverse/tandem walking due to poor weight acceptance on RLE. Educated on components of balance system during session and need to improve all components to improve balance. Pt would benefit from skilled PT for progressive BLE/core/ trunk strengthening, balance, and gait training in order to decrease pain symptoms and improve activity tolerance. Physical Therapy Plan Frequency and Duration Frequency of Treatment 2x/Week Duration of treatment (weeks) 12 Plan of Care Start Date 10/24/23 Plan of Care End Date 01/19/24 Therapeutic Interventions Therapeutic Interventions Balance Training,Coordination Training,Gait Training,Home Exercise Program,Joint Mobilizations,Manual Therapy, Neuromuscular Re-education, Orthotic/Prosthetic Management ,Patient/Caregiver Education, Self-Care/Home Management, Sensory Integration,Soft Tissue Mobilization,Taping, Therapeutic Activities, Therapeutic Exercises Modalities Biofeedback,Cold Pack/Ice Massage,Electric Stimulation, Hot Packs,Ultrasound, Vasopneumatic Devices Next Visit Focus/Plan Next Note Type Treatment Note Next Visit Plan Take vitals Next session: review STS mesh chair, side steps, sol[place] islander ball core (september) Progress to leg press, balance (hurdles, cones, WS, lower step tap), heel and toe raises (trial standing), calf stretch PN on 12/03 visit
--- NOTE | 2023-11-15 12:13 | PT.OTN ---
Current Diagnoses Unsteadiness on feet (11/15/23) Other lack of coordination (11/15/23) Weakness (11/15/23) Unspecified fall, initial encounter (11/15/23) Unspecified place in unspecified non-institutional (private) residence as the place of occurrence of the external cause (11/15/23) Physical Therapy Treatment Note PT-OP-A Visit Information Start: 10/23/23 16:45 Freq: Status: Active Protocol: Document 11/15/23 11:16 NM (Rec: 11/15/23 12:12 NM [id number]) Out-Patient Physical Therapy Visit Information Visit Information Visit Type Treatment Note Visit Start Time 11:17 Visit Stop Time 12:00 Visit Number 5 Evaluation Information Evaluation Date 10/24/23 PT-OP-B Current Condition Start: 10/23/23 16:45 Freq: Status: Active Protocol: Document 10/24/23 09:01 NM (Rec: 10/24/23 09:48 NM [id number]) Current Condition History of Current Condition Current Complaints falls, balance, weakness History of Current Condition Pt presents with balance and gait abnormalities. Pt has 3 BIGG on LLE (first in 2009), metal rods/fusion of T6-sacrum (unable to lay flat), several hernias. 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 Pt has a hx of falls, last in September 2023 with several contusions in ribs; waited 1.5 wk to go to [facility] because unable to move, went to . Pt reports that she falls at least 1x/month. She reports tendency to over do it leading to increased fatigue and weakness. She reports that her balance is off. She uses spc (using for 1.5 years, for all mobility) for balance, uses in R hand. No vertigo, dizziness, denies falls related to changes in BP ; states falls due to tripping or not picking up feet. No throw rugs in house. Has neuropathy of B feet and hands , numbness in both. Prior Treatments and Tests previous PT for hips and back (no twisting, limited ROM. 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 She saw Dr. Block today, checked out and reports that he says all is fine. She was hauling water, carrying wood, moving up/down ladder while on fflick. States she is moving better now, walking without spc and feeling less lurchy. PT-OP-D Balance Start: 10/23/23 16:45 Freq: Status: Active Protocol: Document 10/24/23 09:01 NM (Rec: 10/24/23 16:08 NM [id number]) Balance Tests Bautista Balance Test Bautista Balance Test Score 35/56 Single Limb Standing Single Limb- Right unable Single Limb- Left unable Tandem Tandem Standing unable to maintain w/o LOB during step,stance PT-OP-E Functional Tests Start: 10/23/23 16:45 Freq: Status: Active Protocol: Document 10/24/23 09:01 NM (Rec: 10/24/23 09:48 NM [id number]) Functional Tests 6 Minute Walk Test Distance 872 ft Device Used spc Comments reports low back pain, slow gait speed, fatigues Dynamic Gait Index (DGI) Score 10/24 Five Times Sit to Stand Test Score 15 Comments back pain, slow, 20 ht Timed Up and Go (TUG) Score 11 seconds Comments with spc, increased time to sit, increased sway PT-OP-F Manual Assessment Start: 10/23/23 16:45 Freq: Status: Active Protocol: Document 10/24/23 09:01 NM (Rec: 10/24/23 14:30 NM [id number]) Manual Assessments Soft Tissue Assessment Soft Tissue Mobility Assessment Decreased ankle dorsiflexion observed with gait, decreased active L hip AROM Joint Mobility Assessment Joint Mobility Assessment Decreased lumbar spine and L hip AROM due to previous surgeries, recent hernia repair leading to decreased abdominal strength PT-OP-G Mobility & Gait Start: 10/23/23 16:45 Freq: Status: Active Protocol: Document 10/24/23 09:01 NM (Rec: 10/24/23 14:30 NM [id number]) OP Gait Assessment Gait Gait Assistance Required: Standby Assistance Distance (Feet) 872 Assistive Devices Assistive Device Gait Belt,Straight Cane Gait Deviations General Gait Pattern Antalgic,Decreased Stride Length,Flexed Trunk Factors Limiting Gait Function Factors Limiting Gait Function Decreased Activity Tolerance, Decreased Strength,Limited Range of Motion,Pain,Poor Balance Comments Gait Comments Decreased L stance time, spc in R hand Stair Climbing Evaluation Evaluation Level of Assist On Stairs Contact Guard Assistance Devices Stair Climbing Assistive Devices Straight Cane,Left Railing Technique/Endurance Stair Climbing Direction Ascend and Descend Stair Climbing Technique Step Over Step,Step to Step Number of Steps Climbed 4 Stair Climbing Set # Repetitions (reps) 1 Comments Stair Climbing Comments Step to pattern to descend with LLE rotated out and slight trunk rotation to L. Step over step pattern for ascent. Uses spc and 1 rail to assist PT-OP-H Neuro Start: 10/23/23 16:45 Freq: Status: Active Protocol: Document 10/24/23 09:01 NM (Rec: 10/24/23 14:30 NM [id number]) Sensation Evaluation Gross Sensation Sensation Description Paresthesia Comments Summary Comments Decreased sensation reported on RLE for L3-4 dermatomes. Stocking-glove numbness reported BUE/BLE Deep Tendon Reflex & Clonus Assessment Deep Tendon Reflex Bilateral Patellar Deep Tendon Reflex 1+ Diminished Vital Signs Comments Vital Signs Comments seated vitals at rest, L arm: 144/90 mmHg, 88 bpm PT-OP-J Posture/Palpation/Skin Start: 10/23/23 16:45 Freq: Status: Active Protocol: Document 10/24/23 09:01 NM (Rec: 10/24/23 14:30 NM [id number]) Posture Evaluation Position Standing Head/C-Spine Posture Forward Head T-Spine Posture Increased Kyphosis Weight Distribution Decreased Wt.Bear on (L) Knee Posture (L) Genu Valgus,(R) Genu Valgus Ankle/Foot Posture (L) Pronated,(R) Pronated Comments Posture Comments Hx of scoliosis, correction with rods form T6-sacrum PT-OP-M Strength Start: 10/23/23 16:45 Freq: Status: Active Protocol: Document 10/24/23 09:01 NM (Rec: 10/24/23 14:30 NM [id number]) Hip Strength Hip Manual Muscle Testing Right Flexion (L2) 4- Good- Extension (S1) 4- Good- Abduction 4- Good- Adduction 4- Good- External Rotation 4- Good- Internal Rotation 4- Good- Left Flexion (L2) 3+ Fair+ Extension (S1) 4- Good- Abduction 3+ Fair+ Adduction 4- Good- External Rotation 4- Good- Internal Rotation 4- Good- Knee Strength Knee Manual Muscle Testing Right Flexion (S2) 4 Good Extension (L3) 4 Good Left Flexion (S2) 3+ Fair+ Extension (L3) 4- Good- Ankle/Foot Strength Ankle and Foot Manual Muscle Testing Right Dorsiflexion (L4) 4- Good- Plantarflexion (S1) 4- Good- Inversion 4- Good- Eversion (S1) 4- Good- Left Dorsiflexion (L4) 4- Good- Plantarflexion (S1) 4- Good- Inversion 4- Good- Eversion (S1) 4- Good- PT-OP-Q Treatments Start: 10/23/23 16:45 Freq: Status: Active Protocol: Document 11/15/23 11:16 NM (Rec: 11/15/23 12:12 NM [id number]) Gym Equipment Shuttle Recovery B squat Details cued TKE w/o lock; lvl 2 band around thighs Resistance 75# (2 navy) Reps/Time 2x12 Therapeutic Exercises Sitting Exercises barbadian ball core Sitting Exercise Name 1. pallof press, 2. september (non -alt) Side bilateral Resistance AROM Equipment Used close SBA for balance, large green ball, gait belt Reps/Minutes 1. 1x20, 2. 2x5 Comments march challenging; cued upright trunk, core stab abdominal isometrics Sitting Exercise Name core for low back pain: 1. rectus abdominus, 2. obliques Side bilateral Resistance small AROM crunch w/ isometric Equipment Used airex pad on thighs Reps/Minutes 5x3 ea Comments reports good activation, pain free sit to stand Side bilateral Resistance lvl 2 teal tb around thighs Equipment Used band for valgus, mesh chair Reps/Minutes 1x10 Comments fatiguing; cued to prevent segmental motion Standing Exercises hip 3 way Side bilateral Resistance lvl 2 band around thighs Equipment Used 1 hand support for balance // bars Reps/Minutes 1x5 ea Comments fatiguing; cued upright posture side steps Standing Exercise Name added to HEP Side bilateral Resistance lvl 1 thighs>ankles Equipment Used B flat hand support on //bar for balance Reps/Minutes 3x10 ft Comments improved neutral hip; 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 marching, non-alt 1x10 ea 2 finger support 2. step ups fwd, non-alt, 1x10 ea 1 flat hand support; cued weight shift with step up, upright posture 3. lateral step up, 1x8 fatiguing; cued weight shift onto stance LE, 1 flat hand Requires increased time Self-Care/Home Management Treatment Education Patient Education Home Exercise Program Other Education HEP: side steps, progressed to small seated crunch for abdominal exercises PT-OP-T Assessment and Plan Start: 10/23/23 16:45 Freq: Status: Active Protocol: Document 11/15/23 11:16 NM (Rec: 11/15/23 12:12 NM [id number]) Physical Therapy Assessment Goals Six Impairment HEP Short Term Goal (STG) Pt will report compliance with HEP at least 2-3x/wk in order to maximize progression with PT and promote independence with exercise STG Duration 6 weeks Press Supervisor Goal (LTG) Pt will report compliance with HEP at least 3x/wk in order to promote independence with exercise after discharge from PT LTG Duration 12 weeks Five Impairment strength Short Term Goal (STG) Pt will improve global BLE strength to at least 4/5 MMT in order to demonstrate increased BLE strength for stability during ambulation, ADLs. STG Duration 6 weeks Press Supervisor Goal (LTG) Pt will improve global BLE strength to at least 4+/5 MMT in order to demonstrate increased BLE strength for stability during ambulation, ADLs. LTG Duration 12 weeks Four Impairment balance Impairment DGI 05/16 Short Term Goal (STG) Pt will increase DGI score to at least 15 in order to demonstrate decreased fall risk and improved balance STG Duration 6 weeks Group Home Goal (LTG) Pt will increase DGI score to at least 20/24 in order to demonstrate decreased fall risk and improved balance LTG Duration 12 weeks Three Impairment balance Impairment Bautista 35/56 Short Term Goal (STG) Pt will increase Bautista score to at least 44/56 in order to demonstrate improved balance during gait and transfers, in addition to decreased fall risk STG Duration 6 weeks Group Home Goal (LTG) Pt will increase Bautista score to at least 48/56 in order to demonstrate improved balance during gait and transfers, in addition to decreased fall risk LTG Duration 12 weeks Two Impairment strength, gait, balance Impairment gait 1/2 mile with spc, 6 MWT distance 872 ft Short Term Goal (STG) Pt will improve 6 MWT distance by at least 100 ft in order to demonstrate improved activity tolerance, balance, and gait speed to decrease fall risk STG Duration 6 weeks Press Supervisor Goal (LTG) Pt will ambulate using LRAD during 6 MWT distance >1100 ft (1 MCID) in order to demonstrate improved activity tolerance, balance, and gait speed to decrease fall risk LTG Duration 12 weeks One Impairment strength, function Impairment 5x STS 15 seconds without UE assist, 20 plinth Short Term Goal (STG) Pt will be able to perform at least 5 STS from a chair without UE assist, using LRAD as needed in order to demonstrate improved BLE strength for transfers and mobility STG Duration 6 weeks Press Supervisor Goal (LTG) Pt will be able to perform 5x STS in 12 seconds or less from plinth in order to meet age related norms and to demonstrate increased BLE strength LTG Duration 12 weeks Assessment Summary Assessment Pt tolerated session well. She requires increased time with balance activities, but is pain free. PT educated pt on difference between muscle pain , activation, and fatigue. Pt verbalizes that she is feeling both muscle activation and fatigue with activity, but not pain. Progressed to resisted side steps and initiated hip [address] way for hip strengthening. Pt requires at least 1 UE assistance for balance with hip activities, but demos improved neutral foot positioning. Cued for control with stance LE for both. Initiated seated core activation on barbadian ball for stabilization and lumbar strengthening. Pt challenged by marching, but able to maintain upright posture with cueing. Progressed to leg press over sit to stand for greater glute strength. Pt tolerated well. During balance activities, pt cued consistently to shift weight onto stance LE prior to lifting leg; PT facilitating, pt requires 1 hand support but more 2 finger or flat hand. LLE difficult to maintain weight bearing due to balance. Pt would benefit from skilled PT for progressive core and BLE strengthening, balance training to decrease fall risk and improve activity tolerance. Physical Therapy Plan Frequency and Duration Frequency of Treatment 2x/Week Duration of treatment (weeks) 12 Plan of Care Start Date 10/24/23 Plan of Care End Date 01/19/24 Therapeutic Interventions Therapeutic Interventions Balance Training,Coordination Training,Gait Training,Home Exercise Program,Joint Mobilizations,Manual Therapy, Neuromuscular Re-education, Orthotic/Prosthetic Management ,Patient/Caregiver Education, Self-Care/Home Management, Sensory Integration,Soft Tissue Mobilization,Taping, Therapeutic Activities, Therapeutic Exercises Modalities Biofeedback,Cold Pack/Ice Massage,Electric Stimulation, Hot Packs,Ultrasound, Vasopneumatic Devices Next Visit Focus/Plan Next Note Type Treatment Note Next Visit Plan Take vitals Next session: review STS mesh chair, side steps, barbadian ball core (september) Progress to leg press, balance (hurdles, cones, WS, lower step tap), heel and toe raises (trial standing), calf stretch PN on 12/03 visit
--- NOTE | 2023-11-20 12:08 | PT.OTN ---
Current Diagnoses Unsteadiness on feet (11/20/23) Other lack of coordination (11/20/23) Weakness (11/20/23) Unspecified fall, initial encounter (11/20/23) Unspecified place in unspecified non-institutional (private) residence as the place of occurrence of the external cause (11/20/23) Physical Therapy Treatment Note PT-OP-A Visit Information Start: 10/23/23 16:45 Freq: Status: Active Protocol: Document 11/20/23 09:27 AB (Rec: 11/20/23 12:08 AB [id number]) Out-Patient Physical Therapy Visit Information Visit Information Visit Type Treatment Note Visit Start Time 11:16 Visit Stop Time 12:00 Visit Number 6 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 Pt has 3 BIGG on LLE (first in 2009), metal rods/fusion of T6-sacrum (unable to lay flat), several hernias. 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 Pt has a hx of falls, last in September 2023 with several contusions in ribs; waited 1.5 wk to go to MD because unable to move, went to Dr. Pt reports that she falls at least 1x/month. She reports tendency to over do it leading to increased fatigue and weakness. She reports that her balance is off. She uses spc (using for 1.5 years, for all mobility) for balance, uses in R hand. No vertigo, dizziness, denies falls related to changes in BP ; states falls due to tripping or not picking up feet. No throw rugs in house. Has neuropathy of B feet and hands , numbness in both. Prior Treatments and Tests previous PT for hips and back (no twisting, limited ROM. 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 Patient reports she has a UTI and also has been having sharp knee pain bilateral knee joints, also reports left hip was screaming at her during the exercises. (describes side stepping with band) O2 sat 98 % PT-OP-D Balance Start: 10/23/23 16:45 Freq: Status: Active Protocol: Document 10/24/23 09:01 NM (Rec: 10/24/23 16:08 NM [id number]) Balance Tests Bautista Balance Test Bautista Balance Test Score 35/56 Single Limb Standing Single Limb- Right unable Single Limb- Left unable Tandem Tandem Standing unable to maintain w/o LOB during step,stance PT-OP-E Functional Tests Start: 10/23/23 16:45 Freq: Status: Active Protocol: Document 10/24/23 09:01 NM (Rec: 10/24/23 09:48 NM [id number]) Functional Tests 6 Minute Walk Test Distance 872 ft Device Used spc Comments reports low back pain, slow gait speed, fatigues Dynamic Gait Index (DGI) Score 10/24 Five Times Sit to Stand Test Score 15 Comments back pain, slow, 20 ht Timed Up and Go (TUG) Score 11 seconds Comments with spc, increased time to sit, increased sway PT-OP-F Manual Assessment Start: 10/23/23 16:45 Freq: Status: Active Protocol: Document 10/24/23 09:01 NM (Rec: 10/24/23 14:30 NM [id number]) Manual Assessments Soft Tissue Assessment Soft Tissue Mobility Assessment Decreased ankle dorsiflexion observed with gait, decreased active L hip AROM Joint Mobility Assessment Joint Mobility Assessment Decreased lumbar spine and L hip AROM due to previous surgeries, recent hernia repair leading to decreased abdominal strength PT-OP-G Mobility & Gait Start: 10/23/23 16:45 Freq: Status: Active Protocol: Document 10/24/23 09:01 NM (Rec: 10/24/23 14:30 NM [id number]) OP Gait Assessment Gait Gait Assistance Required: Standby Assistance Distance (Feet) 872 Assistive Devices Assistive Device Gait Belt,Straight Cane Gait Deviations General Gait Pattern Antalgic,Decreased Stride Length,Flexed Trunk Factors Limiting Gait Function Factors Limiting Gait Function Decreased Activity Tolerance, Decreased Strength,Limited Range of Motion,Pain,Poor Balance Comments Gait Comments Decreased L stance time, spc in R hand Stair Climbing Evaluation Evaluation Level of Assist On Stairs Contact Guard Assistance Devices Stair Climbing Assistive Devices Straight Cane,Left Railing Technique/Endurance Stair Climbing Direction Ascend and Descend Stair Climbing Technique Step Over Step,Step to Step Number of Steps Climbed 4 Stair Climbing Set # Repetitions (reps) 1 Comments Stair Climbing Comments Step to pattern to descend with LLE rotated out and slight trunk rotation to L. Step over step pattern for ascent. Uses spc and 1 rail to assist PT-OP-H Neuro Start: 10/23/23 16:45 Freq: Status: Active Protocol: Document 10/24/23 09:01 NM (Rec: 10/24/23 14:30 NM [id number]) Sensation Evaluation Gross Sensation Sensation Description Paresthesia Comments Summary Comments Decreased sensation reported on RLE for L3-4 dermatomes. Stocking-glove numbness reported BUE/BLE Deep Tendon Reflex & Clonus Assessment Deep Tendon Reflex Bilateral Patellar Deep Tendon Reflex 1+ Diminished Vital Signs Comments Vital Signs Comments seated vitals at rest, L arm: 144/90 mmHg, 88 bpm PT-OP-J Posture/Palpation/Skin Start: 10/23/23 16:45 Freq: Status: Active Protocol: Document 10/24/23 09:01 NM (Rec: 10/24/23 14:30 NM [id number]) Posture Evaluation Position Standing Head/C-Spine Posture Forward Head T-Spine Posture Increased Kyphosis Weight Distribution Decreased Wt.Bear on (L) Knee Posture (L) Genu Valgus,(R) Genu Valgus Ankle/Foot Posture (L) Pronated,(R) Pronated Comments Posture Comments Hx of scoliosis, correction with rods form T6-sacrum PT-OP-M Strength Start: 10/23/23 16:45 Freq: Status: Active Protocol: Document 10/24/23 09:01 NM (Rec: 10/24/23 14:30 NM [id number]) Hip Strength Hip Manual Muscle Testing Right Flexion (L2) 4- Good- Extension (S1) 4- Good- Abduction 4- Good- Adduction 4- Good- External Rotation 4- Good- Internal Rotation 4- Good- Left Flexion (L2) 3+ Fair+ Extension (S1) 4- Good- Abduction 3+ Fair+ Adduction 4- Good- External Rotation 4- Good- Internal Rotation 4- Good- Knee Strength Knee Manual Muscle Testing Right Flexion (S2) 4 Good Extension (L3) 4 Good Left Flexion (S2) 3+ Fair+ Extension (L3) 4- Good- Ankle/Foot Strength Ankle and Foot Manual Muscle Testing Right Dorsiflexion (L4) 4- Good- Plantarflexion (S1) 4- Good- Inversion 4- Good- Eversion (S1) 4- Good- Left Dorsiflexion (L4) 4- Good- Plantarflexion (S1) 4- Good- Inversion 4- Good- Eversion (S1) 4- Good- PT-OP-Q Treatments Start: 10/23/23 16:45 Freq: Status: Active Protocol: Document 11/20/23 09:27 AB (Rec: 11/20/23 12:08 AB [id number]) Gym Equipment Shuttle Recovery B squat Details VC to avoid locking knees Resistance one navy X 15 then 2 navy X 1 not tyler then X 15 with one navy again Reps/Time 2X15 Shuttle Balance red Details feet on fours and stagger stance Reps/Duration 3 min Comments left LE back limited by pain during stagger stance, Verbal cues to look straight ahead vs at feet. Therapeutic Exercises Sitting Exercises macedonian ball core Sitting Exercise Name 1. pallof press, 2. september (non -alt) Side bilateral Resistance AROM level one peach ball Equipment Used CGA to SBA for balance, large green ball, gait belt Reps/Minutes 1. 1x20, 2. 2x5 abdominal isometrics Sitting Exercise Name core for low back pain: 1. rectus abdominus, 2. obliques Side bilateral Resistance small AROM crunch w/ isometric Equipment Used blue ball resting on thighs Reps/Minutes 2x5 sec ea Comments reports good activation, pain free sit to stand Sitting Exercise Name reports increased pain when standing and sitting during transitions hip abduction Sitting Exercise Name isometric Resistance level one and level 2 band Reps/Minutes X3 trials Comments not tyler Standing Exercises standing hip abduction Standing Exercise Name holding back of chair Side bilateral Reps/Minutes X2 Comments not tyler standing hip extension Standing Exercise Name holding back of chair Side bilateral Reps/Minutes x10 Comments verbal and visual cues side steps Resistance no band this session Reps/Minutes 2 feet not tyler heel raise Side bilateral Resistance body weight Equipment Used B hand support on stairs Reps/Minutes 2x10 Comments cued elongated posture, core stabilization, equal WB Neuro Re-Education Treatment Balance Activities foam Details stance, CGA Surface airex, unstable Comments steip up step back X 10 each LE tandem stepping Details CGA modified tandem, with one UE then with hand above bar Surface stable Equipment X10 X2 Comments CGA retro stepping Details CGA Equipment one UE on bar then over bar Reps/Duration 2x10 ft PT-OP-T Assessment and Plan Start: 10/23/23 16:45 Freq: Status: Active Protocol: Document 11/20/23 09:27 AB (Rec: 11/20/23 12:08 AB [id number]) Physical Therapy Assessment Goals Six Impairment HEP Short Term Goal (STG) Pt will report compliance with HEP at least 2-3x/wk in order to maximize progression with PT and promote independence with exercise STG Duration 6 weeks Surgeon Chief Goal (LTG) Pt will report compliance with HEP at least 3x/wk in order to promote independence with exercise after discharge from PT LTG Duration 12 weeks Five Impairment strength Short Term Goal (STG) Pt will improve global BLE strength to at least 4/5 MMT in order to demonstrate increased BLE strength for stability during ambulation, ADLs. STG Duration 6 weeks Shelter Goal (LTG) Pt will improve global BLE strength to at least 4+/5 MMT in order to demonstrate increased BLE strength for stability during ambulation, ADLs. LTG Duration 12 weeks Four Impairment balance Impairment DGI 05/16 Short Term Goal (STG) Pt will increase DGI score to at least 15/ in order to demonstrate decreased fall risk and improved balance STG Duration 6 weeks Shelter Goal (LTG) Pt will increase DGI score to at least 20/24 in order to demonstrate decreased fall risk and improved balance LTG Duration 12 weeks Three Impairment balance Impairment Bautista 35/56 Short Term Goal (STG) Pt will increase Bautista score to at least 44/56 in order to demonstrate improved balance during gait and transfers, in addition to decreased fall risk STG Duration 6 weeks Shelter Goal (LTG) Pt will increase Bautista score to at least 48/56 in order to demonstrate improved balance during gait and transfers, in addition to decreased fall risk LTG Duration 12 weeks Two Impairment strength, gait, balance Impairment gait 1/2 mile with spc, 6 MWT distance 872 ft Short Term Goal (STG) Pt will improve 6 MWT distance by at least 100 ft in order to demonstrate improved activity tolerance, balance, and gait speed to decrease fall risk STG Duration 6 weeks Shelter Goal (LTG) Pt will ambulate using LRAD during 6 MWT distance >1100 ft (1 MCID) in order to demonstrate improved activity tolerance, balance, and gait speed to decrease fall risk LTG Duration 12 weeks One Impairment strength, function Impairment 5x STS 15 seconds without UE assist, 20 plinth Short Term Goal (STG) Pt will be able to perform at least 5 STS from a chair without UE assist, using LRAD as needed in order to demonstrate improved BLE strength for transfers and mobility STG Duration 6 weeks Surgeon Chief Goal (LTG) Pt will be able to perform 5x STS in 12 seconds or less from plinth in order to meet age related norms and to demonstrate increased BLE strength LTG Duration 12 weeks Assessment Summary Assessment 144/93 HR 93 O2 sat 97% post all exercises except standing hip extension, heel raise and abduction. Exercises this session limited by hip and knee joint pain. with patient tolerating less resistance on shuttle press compared to previous session. Physical Therapy Plan Frequency and Duration Frequency of Treatment 2x/Week Duration of treatment (weeks) 12 Plan of Care Start Date 10/24/23 Plan of Care End Date 01/19/24 Next Visit Focus/Plan Next Note Type Treatment Note Next Visit Plan Take vitals Next session: review STS mesh chair, side steps, macedonian ball core (september) Progress to leg press, balance (hurdles, cones, WS, lower step tap), heel and toe raises (trial standing), calf stretch PN on 12/03 visit
--- NOTE | 2023-11-23 12:39 | PT.OTN ---
Current Diagnoses Unsteadiness on feet (11/23/23) Other lack of coordination (11/23/23) Weakness (11/23/23) Unspecified fall, initial encounter (11/23/23) Unspecified place in unspecified non-institutional (private) residence as the place of occurrence of the external cause (11/23/23) Physical Therapy Treatment Note PT-OP-A Visit Information Start: 10/23/23 16:45 Freq: Status: Active Protocol: Document 11/23/23 08:07 AB (Rec: 11/23/23 12:36 AB [id number]) Out-Patient Physical Therapy Visit Information Visit Information Visit Type Treatment Note Visit Start Time 09:47 Visit Stop Time 10:30 Visit Number 7 Number of COMMUNITY RELATIONS MANAGER Visits 2 Evaluation Information Evaluation Date 10/24/23 Precautions Precautions blood thinners, hx scoliosis and spinal fusion with rods, previous BIGG and DVT risk, FALL RISK take vitals and monitor during session PT-OP-B Current Condition Start: 10/23/23 16:45 Freq: Status: Active Protocol: Document 10/24/23 09:01 NM (Rec: 10/24/23 09:48 NM [id number]) Current Condition History of Current Condition Current Complaints falls, balance, weakness History of Current Condition Pt presents with balance and gait abnormalities. Pt has 3 BIGG on LLE (first in 2009), metal rods/fusion of T6-sacrum (unable to lay flat), several hernias. 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 Pt has a hx of falls, last in September 2023 with several contusions in ribs; waited 1.5 wk to go to MD because unable to move, went to Dr. Pt reports that she falls at least 1x/month. She reports tendency to over do it leading to increased fatigue and weakness. She reports that her balance is off. She uses spc (using for 1.5 years, for all mobility) for balance, uses in R hand. No vertigo, dizziness, denies falls related to changes in BP ; states falls due to tripping or not picking up feet. No throw rugs in house. Has neuropathy of B feet and hands , numbness in both. Prior Treatments and Tests previous PT for hips and back (no twisting, limited ROM. 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 Patient reports she keeps falling asleep. Patient reports the right knee is ok, left knee knee is hurting. Seated BP left UE 122/74 HR 70 BPM PT-OP-D Balance Start: 10/23/23 16:45 Freq: Status: Active Protocol: Document 10/24/23 09:01 NM (Rec: 10/24/23 16:08 NM [id number]) Balance Tests Bautista Balance Test Bautista Balance Test Score 35/56 Single Limb Standing Single Limb- Right unable Single Limb- Left unable Tandem Tandem Standing unable to maintain w/o LOB during step,stance PT-OP-E Functional Tests Start: 10/23/23 16:45 Freq: Status: Active Protocol: Document 10/24/23 09:01 NM (Rec: 10/24/23 09:48 NM [id number]) Functional Tests 6 Minute Walk Test Distance 872 ft Device Used spc Comments reports low back pain, slow gait speed, fatigues Dynamic Gait Index (DGI) Score 10/24 Five Times Sit to Stand Test Score 15 Comments back pain, slow, 20 ht Timed Up and Go (TUG) Score 11 seconds Comments with spc, increased time to sit, increased sway PT-OP-F Manual Assessment Start: 10/23/23 16:45 Freq: Status: Active Protocol: Document 10/24/23 09:01 NM (Rec: 10/24/23 14:30 NM [id number]) Manual Assessments Soft Tissue Assessment Soft Tissue Mobility Assessment Decreased ankle dorsiflexion observed with gait, decreased active L hip AROM Joint Mobility Assessment Joint Mobility Assessment Decreased lumbar spine and L hip AROM due to previous surgeries, recent hernia repair leading to decreased abdominal strength PT-OP-G Mobility & Gait Start: 10/23/23 16:45 Freq: Status: Active Protocol: Document 10/24/23 09:01 NM (Rec: 10/24/23 14:30 NM [id number]) OP Gait Assessment Gait Gait Assistance Required: Standby Assistance Distance (Feet) 872 Assistive Devices Assistive Device Gait Belt,Straight Cane Gait Deviations General Gait Pattern Antalgic,Decreased Stride Length,Flexed Trunk Factors Limiting Gait Function Factors Limiting Gait Function Decreased Activity Tolerance, Decreased Strength,Limited Range of Motion,Pain,Poor Balance Comments Gait Comments Decreased L stance time, spc in R hand Stair Climbing Evaluation Evaluation Level of Assist On Stairs Contact Guard Assistance Devices Stair Climbing Assistive Devices Straight Cane,Left Railing Technique/Endurance Stair Climbing Direction Ascend and Descend Stair Climbing Technique Step Over Step,Step to Step Number of Steps Climbed 4 Stair Climbing Set # Repetitions (reps) 1 Comments Stair Climbing Comments Step to pattern to descend with LLE rotated out and slight trunk rotation to L. Step over step pattern for ascent. Uses spc and 1 rail to assist PT-OP-H Neuro Start: 10/23/23 16:45 Freq: Status: Active Protocol: Document 10/24/23 09:01 NM (Rec: 10/24/23 14:30 NM [id number]) Sensation Evaluation Gross Sensation Sensation Description Paresthesia Comments Summary Comments Decreased sensation reported on RLE for L3-4 dermatomes. Stocking-glove numbness reported BUE/BLE Deep Tendon Reflex & Clonus Assessment Deep Tendon Reflex Bilateral Patellar Deep Tendon Reflex 1+ Diminished Vital Signs Comments Vital Signs Comments seated vitals at rest, L arm: 144/90 mmHg, 88 bpm PT-OP-J Posture/Palpation/Skin Start: 10/23/23 16:45 Freq: Status: Active Protocol: Document 10/24/23 09:01 NM (Rec: 10/24/23 14:30 NM [id number]) Posture Evaluation Position Standing Head/C-Spine Posture Forward Head T-Spine Posture Increased Kyphosis Weight Distribution Decreased Wt.Bear on (L) Knee Posture (L) Genu Valgus,(R) Genu Valgus Ankle/Foot Posture (L) Pronated,(R) Pronated Comments Posture Comments Hx of scoliosis, correction with rods form T6-sacrum PT-OP-M Strength Start: 10/23/23 16:45 Freq: Status: Active Protocol: Document 10/24/23 09:01 NM (Rec: 10/24/23 14:30 NM [id number]) Hip Strength Hip Manual Muscle Testing Right Flexion (L2) 4- Good- Extension (S1) 4- Good- Abduction 4- Good- Adduction 4- Good- External Rotation 4- Good- Internal Rotation 4- Good- Left Flexion (L2) 3+ Fair+ Extension (S1) 4- Good- Abduction 3+ Fair+ Adduction 4- Good- External Rotation 4- Good- Internal Rotation 4- Good- Knee Strength Knee Manual Muscle Testing Right Flexion (S2) 4 Good Extension (L3) 4 Good Left Flexion (S2) 3+ Fair+ Extension (L3) 4- Good- Ankle/Foot Strength Ankle and Foot Manual Muscle Testing Right Dorsiflexion (L4) 4- Good- Plantarflexion (S1) 4- Good- Inversion 4- Good- Eversion (S1) 4- Good- Left Dorsiflexion (L4) 4- Good- Plantarflexion (S1) 4- Good- Inversion 4- Good- Eversion (S1) 4- Good- PT-OP-Q Treatments Start: 10/23/23 16:45 Freq: Status: Active Protocol: Document 11/23/23 08:07 AB (Rec: 11/23/23 12:36 AB [id number]) Gym Equipment Shuttle Recovery B squat Details VC to avoid locking knees Resistance (navy X1 )( 2 bands not tyler trial X 2 reps) Reps/Time 2X15 Therapeutic Exercises Supine Exercises breathing from diaphgragm in modified restorative pose Reps/Minutes 4 min Comments *infracostal angle 128 deg Sitting Exercises sit to stand Resistance level one band Equipment Used band for valgus, mesh chair Reps/Minutes X9 hip abduction Sitting Exercise Name isometric Resistance level one band Reps/Minutes one min hold X 10 2X10 without hold Comments initiated with level 2 band, but changed to lev 1 due to left hip pain Manual Therapy Treatment Soft Tissue Mobilization left knee Body Location medial, lateral and peripatellar area Comments to areas of increased tissue density, dec tissue mobility and for swelling. PT-OP-T Assessment and Plan Start: 10/23/23 16:45 Freq: Status: Active Protocol: Document 11/23/23 08:07 AB (Rec: 11/23/23 12:36 AB [id number]) Physical Therapy Assessment Goals Six Impairment HEP Short Term Goal (STG) Pt will report compliance with HEP at least 2-3x/wk in order to maximize progression with PT and promote independence with exercise STG Duration 6 weeks Reservationist Goal (LTG) Pt will report compliance with HEP at least 3x/wk in order to promote independence with exercise after discharge from PT LTG Duration 12 weeks Five Impairment strength Short Term Goal (STG) Pt will improve global BLE strength to at least 4/5 MMT in order to demonstrate increased BLE strength for stability during ambulation, ADLs. STG Duration 6 weeks Group Home Goal (LTG) Pt will improve global BLE strength to at least 4+/5 MMT in order to demonstrate increased BLE strength for stability during ambulation, ADLs. LTG Duration 12 weeks Four Impairment balance Impairment DGI 10/24 Short Term Goal (STG) Pt will increase DGI score to at least 15/24 in order to demonstrate decreased fall risk and improved balance STG Duration 6 weeks Group Home Goal (LTG) Pt will increase DGI score to at least 20/24 in order to demonstrate decreased fall risk and improved balance LTG Duration 12 weeks Three Impairment balance Impairment Bautista 35/56 Short Term Goal (STG) Pt will increase Bautista score to at least 44/56 in order to demonstrate improved balance during gait and transfers, in addition to decreased fall risk STG Duration 6 weeks Reservationist Goal (LTG) Pt will increase Bautista score to at least 48/56 in order to demonstrate improved balance during gait and transfers, in addition to decreased fall risk LTG Duration 12 weeks Two Impairment strength, gait, balance Impairment gait 1/2 mile with spc, 6 MWT distance 872 ft Short Term Goal (STG) Pt will improve 6 MWT distance by at least 100 ft in order to demonstrate improved activity tolerance, balance, and gait speed to decrease fall risk STG Duration 6 weeks Reservationist Goal (LTG) Pt will ambulate using LRAD during 6 MWT distance >1100 ft (1 MCID) in order to demonstrate improved activity tolerance, balance, and gait speed to decrease fall risk LTG Duration 12 weeks One Impairment strength, function Impairment 5x STS 15 seconds without UE assist, 20 plinth Short Term Goal (STG) Pt will be able to perform at least 5 STS from a chair without UE assist, using LRAD as needed in order to demonstrate improved BLE strength for transfers and mobility STG Duration 6 weeks Group Home Goal (LTG) Pt will be able to perform 5x STS in 12 seconds or less from plinth in order to meet age related norms and to demonstrate increased BLE strength LTG Duration 12 weeks Assessment Summary Assessment Nicole reports having less pain ambulating with SPC end of session. Patient also reports having more energy. BP left UE 121/77 HR73 BPM Physical Therapy Plan Frequency and Duration Frequency of Treatment 2x/Week Duration of treatment (weeks) 12 Plan of Care Start Date 10/24/23 Plan of Care End Date 01/19/24 Next Visit Focus/Plan Next Note Type Treatment Note Next Visit Plan Take vitals Next session: review STS mesh chair, side steps, stateless ball core (september) Progress to leg press, balance (hurdles, cones, WS, lower step tap), heel and toe raises (trial standing), calf stretch PN on 12/03 visit
--- NOTE | 2023-11-28 13:47 | PT.OTN ---
Current Diagnoses Unsteadiness on feet (11/28/23) Other lack of coordination (11/28/23) Weakness (11/28/23) Unspecified fall, initial encounter (11/28/23) Unspecified place in unspecified non-institutional (private) residence as the place of occurrence of the external cause (11/28/23) Physical Therapy Treatment Note PT-OP-A Visit Information Start: 10/23/23 16:45 Freq: Status: Active Protocol: Document 11/28/23 08:09 AB (Rec: 11/28/23 09:38 AB [id number]) Out-Patient Physical Therapy Visit Information Visit Information Visit Type Treatment Note Visit Start Time 08:16 Visit Stop Time 08:58 Visit Number 8 Number of ELEMENTARY SCHOOL LIBRARIAN Visits 3 Evaluation Information Evaluation Date 10/24/23 Precautions Precautions blood thinners, hx scoliosis and spinal fusion with rods, previous BIGG and DVT risk, FALL RISK take vitals and monitor during session PT-OP-B Current Condition Start: 10/23/23 16:45 Freq: Status: Active Protocol: Document 10/24/23 09:01 NM (Rec: 10/24/23 09:48 NM [id number]) Current Condition History of Current Condition Current Complaints falls, balance, weakness History of Current Condition Pt presents with balance and gait abnormalities. Pt has 3 BIGG on LLE (first in 2009), metal rods/fusion of T6-sacrum (unable to lay flat), several hernias. 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 Pt has a hx of falls, last in September 2023 with several contusions in ribs; waited 1.5 wk to go to MD because unable to move, went to Dr. Pt reports that she falls at least 1x/month. She reports tendency to over do it leading to increased fatigue and weakness. She reports that her balance is off. She uses spc (using for 1.5 years, for all mobility) for balance, uses in R hand. No vertigo, dizziness, denies falls related to changes in BP ; states falls due to tripping or not picking up feet. No throw rugs in house. Has neuropathy of B feet and hands , numbness in both. Prior Treatments and Tests previous PT for hips and back (no twisting, limited ROM. 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 Pt reports she has been advised to stay off of the Beta kirk unless BP reaches over 140/90. Patient reports the weather has made her sore, and the knee is not getting any better with the exercises, it is hard to do anything. BP start of session 146/86 HR 93BPM PT-OP-D Balance Start: 10/23/23 16:45 Freq: Status: Active Protocol: Document 10/24/23 09:01 NM (Rec: 10/24/23 16:08 NM [id number]) Balance Tests Bautista Balance Test Bautista Balance Test Score 35/56 Single Limb Standing Single Limb- Right unable Single Limb- Left unable Tandem Tandem Standing unable to maintain w/o LOB during step,stance PT-OP-E Functional Tests Start: 10/23/23 16:45 Freq: Status: Active Protocol: Document 10/24/23 09:01 NM (Rec: 10/24/23 09:48 NM [id number]) Functional Tests 6 Minute Walk Test Distance 872 ft Device Used spc Comments reports low back pain, slow gait speed, fatigues Dynamic Gait Index (DGI) Score 10/24 Five Times Sit to Stand Test Score 15 Comments back pain, slow, 20 ht Timed Up and Go (TUG) Score 11 seconds Comments with spc, increased time to sit, increased sway PT-OP-F Manual Assessment Start: 10/23/23 16:45 Freq: Status: Active Protocol: Document 10/24/23 09:01 NM (Rec: 10/24/23 14:30 NM [id number]) Manual Assessments Soft Tissue Assessment Soft Tissue Mobility Assessment Decreased ankle dorsiflexion observed with gait, decreased active L hip AROM Joint Mobility Assessment Joint Mobility Assessment Decreased lumbar spine and L hip AROM due to previous surgeries, recent hernia repair leading to decreased abdominal strength PT-OP-G Mobility & Gait Start: 10/23/23 16:45 Freq: Status: Active Protocol: Document 10/24/23 09:01 NM (Rec: 10/24/23 14:30 NM [id number]) OP Gait Assessment Gait Gait Assistance Required: Standby Assistance Distance (Feet) 872 Assistive Devices Assistive Device Gait Belt,Straight Cane Gait Deviations General Gait Pattern Antalgic,Decreased Stride Length,Flexed Trunk Factors Limiting Gait Function Factors Limiting Gait Function Decreased Activity Tolerance, Decreased Strength,Limited Range of Motion,Pain,Poor Balance Comments Gait Comments Decreased L stance time, spc in R hand Stair Climbing Evaluation Evaluation Level of Assist On Stairs Contact Guard Assistance Devices Stair Climbing Assistive Devices Straight Cane,Left Railing Technique/Endurance Stair Climbing Direction Ascend and Descend Stair Climbing Technique Step Over Step,Step to Step Number of Steps Climbed 4 Stair Climbing Set # Repetitions (reps) 1 Comments Stair Climbing Comments Step to pattern to descend with LLE rotated out and slight trunk rotation to L. Step over step pattern for ascent. Uses spc and 1 rail to assist PT-OP-H Neuro Start: 10/23/23 16:45 Freq: Status: Active Protocol: Document 10/24/23 09:01 NM (Rec: 10/24/23 14:30 NM [id number]) Sensation Evaluation Gross Sensation Sensation Description Paresthesia Comments Summary Comments Decreased sensation reported on RLE for L3-4 dermatomes. Stocking-glove numbness reported BUE/BLE Deep Tendon Reflex & Clonus Assessment Deep Tendon Reflex Bilateral Patellar Deep Tendon Reflex 1+ Diminished Vital Signs Comments Vital Signs Comments seated vitals at rest, L arm: 144/90 mmHg, 88 bpm PT-OP-J Posture/Palpation/Skin Start: 10/23/23 16:45 Freq: Status: Active Protocol: Document 10/24/23 09:01 NM (Rec: 10/24/23 14:30 NM [id number]) Posture Evaluation Position Standing Head/C-Spine Posture Forward Head T-Spine Posture Increased Kyphosis Weight Distribution Decreased Wt.Bear on (L) Knee Posture (L) Genu Valgus,(R) Genu Valgus Ankle/Foot Posture (L) Pronated,(R) Pronated Comments Posture Comments Hx of scoliosis, correction with rods form T6-sacrum PT-OP-M Strength Start: 10/23/23 16:45 Freq: Status: Active Protocol: Document 10/24/23 09:01 NM (Rec: 10/24/23 14:30 NM [id number]) Hip Strength Hip Manual Muscle Testing Right Flexion (L2) 4- Good- Extension (S1) 4- Good- Abduction 4- Good- Adduction 4- Good- External Rotation 4- Good- Internal Rotation 4- Good- Left Flexion (L2) 3+ Fair+ Extension (S1) 4- Good- Abduction 3+ Fair+ Adduction 4- Good- External Rotation 4- Good- Internal Rotation 4- Good- Knee Strength Knee Manual Muscle Testing Right Flexion (S2) 4 Good Extension (L3) 4 Good Left Flexion (S2) 3+ Fair+ Extension (L3) 4- Good- Ankle/Foot Strength Ankle and Foot Manual Muscle Testing Right Dorsiflexion (L4) 4- Good- Plantarflexion (S1) 4- Good- Inversion 4- Good- Eversion (S1) 4- Good- Left Dorsiflexion (L4) 4- Good- Plantarflexion (S1) 4- Good- Inversion 4- Good- Eversion (S1) 4- Good- PT-OP-Q Treatments Start: 10/23/23 16:45 Freq: Status: Active Protocol: Document 11/28/23 08:09 AB (Rec: 11/28/23 09:38 AB [id number]) Therapeutic Exercises Supine Exercises SLR Side left Reps/Minutes X8 Sitting Exercises zimbabwean ball core Reps/Minutes 2 X10 pallof press, march not tyler hip abduction Sitting Exercise Name isometric Side bilateral Resistance level 2 teal band Reps/Minutes one min hold X 10 2X10 without hold Manual Therapy Treatment Soft Tissue Mobilization left knee Body Location medial, lateral and peripatellar area Comments to areas of increased tissue density, dec tissue mobility and for swelling. Taping kinesiotaping Body Location left knee Treatment Focus unload fat pad Type of Tape kinesiotape Skin Inspection WNL Comments Pt ed to remove in 3-5 days or immediately if skin irritation occurs. PT-OP-T Assessment and Plan Start: 10/23/23 16:45 Freq: Status: Active Protocol: Document 11/28/23 08:09 AB (Rec: 11/28/23 09:38 AB [id number]) Physical Therapy Assessment Goals Six Impairment HEP Short Term Goal (STG) Pt will report compliance with HEP at least 2-3x/wk in order to maximize progression with PT and promote independence with exercise STG Duration 6 weeks Detention Goal (LTG) Pt will report compliance with HEP at least 3x/wk in order to promote independence with exercise after discharge from PT LTG Duration 12 weeks Five Impairment strength Short Term Goal (STG) Pt will improve global BLE strength to at least 4/5 MMT in order to demonstrate increased BLE strength for stability during ambulation, ADLs. STG Duration 6 weeks Detention Goal (LTG) Pt will improve global BLE strength to at least 4+/5 MMT in order to demonstrate increased BLE strength for stability during ambulation, ADLs. LTG Duration 12 weeks Four Impairment balance Impairment DGI 10/24 Short Term Goal (STG) Pt will increase DGI score to at least 15/24 in order to demonstrate decreased fall risk and improved balance STG Duration 6 weeks Detention Goal (LTG) Pt will increase DGI score to at least 20/24 in order to demonstrate decreased fall risk and improved balance LTG Duration 12 weeks Three Impairment balance Impairment Bautista 35/56 Short Term Goal (STG) Pt will increase Bautista score to at least 44/56 in order to demonstrate improved balance during gait and transfers, in addition to decreased fall risk STG Duration 6 weeks Detention Goal (LTG) Pt will increase Bautista score to at least 48/56 in order to demonstrate improved balance during gait and transfers, in addition to decreased fall risk LTG Duration 12 weeks Two Impairment strength, gait, balance Impairment gait 1/2 mile with spc, 6 MWT distance 872 ft Short Term Goal (STG) Pt will improve 6 MWT distance by at least 100 ft in order to demonstrate improved activity tolerance, balance, and gait speed to decrease fall risk STG Duration 6 weeks Spd Manager Goal (LTG) Pt will ambulate using LRAD during 6 MWT distance >1100 ft (1 MCID) in order to demonstrate improved activity tolerance, balance, and gait speed to decrease fall risk LTG Duration 12 weeks One Impairment strength, function Impairment 5x STS 15 seconds without UE assist, 20 plinth Short Term Goal (STG) Pt will be able to perform at least 5 STS from a chair without UE assist, using LRAD as needed in order to demonstrate improved BLE strength for transfers and mobility STG Duration 6 weeks Spd Manager Goal (LTG) Pt will be able to perform 5x STS in 12 seconds or less from plinth in order to meet age related norms and to demonstrate increased BLE strength LTG Duration 12 weeks Assessment Summary Assessment 142/90 HR 94 seated left UE end of session, post exercise. Nicole reports the knee feels better even at rest post taping. Physical Therapy Plan Frequency and Duration Frequency of Treatment 2x/Week Duration of treatment (weeks) 12 Plan of Care Start Date 10/24/23 Plan of Care End Date 01/19/24 Therapeutic Interventions Therapeutic Interventions Balance Training,Coordination Training,Gait Training,Home Exercise Program,Joint Mobilizations,Manual Therapy, Neuromuscular Re-education, Orthotic/Prosthetic Management ,Patient/Caregiver Education, Self-Care/Home Management, Sensory Integration,Soft Tissue Mobilization,Taping, Therapeutic Activities, Therapeutic Exercises Next Visit Focus/Plan Next Note Type Progress Note Next Visit Plan Take vitals Next session: review STS mesh chair, side steps, zimbabwean ball core (september) Progress to leg press, balance (hurdles, cones, WS, lower step tap), heel and toe raises (trial standing), calf stretch PN on 12/03 visit
--- NOTE | 2023-12-04 14:27 | PT.OTN ---
Current Diagnoses Unsteadiness on feet (12/04/23) Other lack of coordination (12/04/23) Weakness (12/04/23) Unspecified fall, initial encounter (12/04/23) Unspecified place in unspecified non-institutional (private) residence as the place of occurrence of the external cause (12/04/23) Physical Therapy Treatment Note PT-OP-A Visit Information Start: 10/23/23 16:45 Freq: Status: Active Protocol: Document 12/04/23 09:05 NM (Rec: 12/04/23 10:21 NM [id number]) Out-Patient Physical Therapy Visit Information Visit Information Visit Type Progress Note Visit Start Time 09:05 Visit Stop Time 09:45 Visit Number 9 Evaluation Information Evaluation Date 10/24/23 PT-OP-B Current Condition Start: 10/23/23 16:45 Freq: Status: Active Protocol: Document 10/24/23 09:01 NM (Rec: 10/24/23 09:48 NM [id number]) Current Condition History of Current Condition Current Complaints falls, balance, weakness History of Current Condition Pt presents with balance and gait abnormalities. Pt has 3 BIGG on LLE (first in 2009), metal rods/fusion of T6-sacrum (unable to lay flat), several hernias. 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 Pt has a hx of falls, last in September 2023 with several contusions in ribs; waited 1.5 wk to go to [facility] because unable to move, went to . Pt reports that she falls at least 1x/month. She reports tendency to over do it leading to increased fatigue and weakness. She reports that her balance is off. She uses spc (using for 1.5 years, for all mobility) for balance, uses in R hand. No vertigo, dizziness, denies falls related to changes in BP ; states falls due to tripping or not picking up feet. No throw rugs in house. Has neuropathy of B feet and hands , numbness in both. Prior Treatments and Tests previous PT for hips and back (no twisting, limited ROM. 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 Reports taping helped last session. States that side steps and putting pressure on knee bothers it. BP at start of session 148/84 mmHg, 98 spO2. States L knee swollen, limits ability to participate in ADLs, PT HEP and gait. She is wanting to get it further assessed, feels like my hip did when it was bone on bone. Would prefer to d/c from PT until further assessment due to pain vs continue with PT and limit progression. States overall, feels like balance is the same since IE but she is more aware and can brace her core better, which helps PT-OP-D Balance Start: 10/23/23 16:45 Freq: Status: Active Protocol: Document 10/24/23 09:01 NM (Rec: 10/24/23 16:08 NM [id number]) Balance Tests Bautista Balance Test Bautista Balance Test Score 35/56 Single Limb Standing Single Limb- Right unable Single Limb- Left unable Tandem Tandem Standing unable to maintain w/o LOB during step,stance PT-OP-E Functional Tests Start: 10/23/23 16:45 Freq: Status: Active Protocol: Document 10/24/23 09:01 NM (Rec: 10/24/23 09:48 NM [id number]) Functional Tests 6 Minute Walk Test Distance 872 ft Device Used spc Comments reports low back pain, slow gait speed, fatigues Dynamic Gait Index (DGI) Score 10/24 Five Times Sit to Stand Test Score 15 Comments back pain, slow, 20 ht Timed Up and Go (TUG) Score 11 seconds Comments with spc, increased time to sit, increased sway PT-OP-F Manual Assessment Start: 10/23/23 16:45 Freq: Status: Active Protocol: Document 10/24/23 09:01 NM (Rec: 10/24/23 14:30 NM [id number]) Manual Assessments Soft Tissue Assessment Soft Tissue Mobility Assessment Decreased ankle dorsiflexion observed with gait, decreased active L hip AROM Joint Mobility Assessment Joint Mobility Assessment Decreased lumbar spine and L hip AROM due to previous surgeries, recent hernia repair leading to decreased abdominal strength PT-OP-G Mobility & Gait Start: 10/23/23 16:45 Freq: Status: Active Protocol: Document 10/24/23 09:01 NM (Rec: 10/24/23 14:30 NM [id number]) OP Gait Assessment Gait Gait Assistance Required: Standby Assistance Distance (Feet) 872 Assistive Devices Assistive Device Gait Belt,Straight Cane Gait Deviations General Gait Pattern Antalgic,Decreased Stride Length,Flexed Trunk Factors Limiting Gait Function Factors Limiting Gait Function Decreased Activity Tolerance, Decreased Strength,Limited Range of Motion,Pain,Poor Balance Comments Gait Comments Decreased L stance time, spc in R hand Stair Climbing Evaluation Evaluation Level of Assist On Stairs Contact Guard Assistance Devices Stair Climbing Assistive Devices Straight Cane,Left Railing Technique/Endurance Stair Climbing Direction Ascend and Descend Stair Climbing Technique Step Over Step,Step to Step Number of Steps Climbed 4 Stair Climbing Set # Repetitions (reps) 1 Comments Stair Climbing Comments Step to pattern to descend with LLE rotated out and slight trunk rotation to L. Step over step pattern for ascent. Uses spc and 1 rail to assist PT-OP-H Neuro Start: 10/23/23 16:45 Freq: Status: Active Protocol: Document 10/24/23 09:01 NM (Rec: 10/24/23 14:30 NM [id number]) Sensation Evaluation Gross Sensation Sensation Description Paresthesia Comments Summary Comments Decreased sensation reported on RLE for L3-4 dermatomes. Stocking-glove numbness reported BUE/BLE Deep Tendon Reflex & Clonus Assessment Deep Tendon Reflex Bilateral Patellar Deep Tendon Reflex 1+ Diminished Vital Signs Comments Vital Signs Comments seated vitals at rest, L arm: 144/90 mmHg, 88 bpm PT-OP-J Posture/Palpation/Skin Start: 10/23/23 16:45 Freq: Status: Active Protocol: Document 10/24/23 09:01 NM (Rec: 10/24/23 14:30 NM [id number]) Posture Evaluation Position Standing Head/C-Spine Posture Forward Head T-Spine Posture Increased Kyphosis Weight Distribution Decreased Wt.Bear on (L) Knee Posture (L) Genu Valgus,(R) Genu Valgus Ankle/Foot Posture (L) Pronated,(R) Pronated Comments Posture Comments Hx of scoliosis, correction with rods form T6-sacrum PT-OP-M Strength Start: 10/23/23 16:45 Freq: Status: Active Protocol: Document 10/24/23 09:01 NM (Rec: 10/24/23 14:30 NM [id number]) Hip Strength Hip Manual Muscle Testing Right Flexion (L2) 4- Good- Extension (S1) 4- Good- Abduction 4- Good- Adduction 4- Good- External Rotation 4- Good- Internal Rotation 4- Good- Left Flexion (L2) 3+ Fair+ Extension (S1) 4- Good- Abduction 3+ Fair+ Adduction 4- Good- External Rotation 4- Good- Internal Rotation 4- Good- Knee Strength Knee Manual Muscle Testing Right Flexion (S2) 4 Good Extension (L3) 4 Good Left Flexion (S2) 3+ Fair+ Extension (L3) 4- Good- Ankle/Foot Strength Ankle and Foot Manual Muscle Testing Right Dorsiflexion (L4) 4- Good- Plantarflexion (S1) 4- Good- Inversion 4- Good- Eversion (S1) 4- Good- Left Dorsiflexion (L4) 4- Good- Plantarflexion (S1) 4- Good- Inversion 4- Good- Eversion (S1) 4- Good- PT-OP-Q Treatments Start: 10/23/23 16:45 Freq: Status: Active Protocol: Document 12/04/23 09:05 NM (Rec: 12/04/23 10:21 NM [id number]) Gait Training Gait Activity normal gait w/ spc Device Used spc Level of Assistance close SBA Surface stable Distance/Duration 2 minutes throughout session btwn activities Treatment Focus normal mechanics Comments Demos decreased trunk rotation L side, decreased L stance time, R trunk lean. Cued for L arm swing, upright posture to prevent R lean, core bracing with gait. Improved with cueing but continues to have L knee pain post 6 MWT and balance testing 6 MWT Device Used spc Level of Assistance close SBA Surface stable Distance/Duration 936 ft Treatment Focus endurance Comments Demos decreased trunk rotation L side, decreased L stance time, R trunk lean. States no L knee pain until 3 min into test, wanted to complete test Neuro Re-Education Treatment Balance Activities DGI Comments Difficulty with stairs. Uses spc for balance. States L knee pain with weightbearing Bautista Comments 36/56 Difficulty with step taps, tandem, SLS, reaching fwd, weight shifting pallof press Details standing for upright core and balance Surface stable Equipment lvl 2 tb > lvl 1 tb Reps/Duration 2x10 ea Comments Cued to maintain staggered stance for improved stability, decrease amount of weightbearing on L knee. States pain free but challenging in standing foam Details stance, CGA Surface airex, unstable Reps/Duration 1x10 Comments Static stance then small head turns. Reports increase L knee pain with reps so d/c tandem stepping Details modified tandem stance Surface stable Equipment hands hovering over //bars for prn support Reps/Duration 2x10 ft Comments Reports increase in L knee pain with 2nd set, improved with wider MARTINE but continues to be painful retro stepping Details CGA Equipment UE hovering over bars Reps/Duration 2x10 ft Comments Demos decreased L stance time PT-OP-T Assessment and Plan Start: 10/23/23 16:45 Freq: Status: Active Protocol: Document 12/04/23 09:05 NM (Rec: 12/04/23 10:21 NM [id number]) Physical Therapy Assessment Goals Six Impairment HEP Short Term Goal (STG) Pt will report compliance with HEP at least 2-3x/wk in order to maximize progression with PT and promote independence with exercise 12/04/23: states doing core stuff every day, other exercises every other day; unable to perform standing/ weightbearing activities due to increase in L knee pain STG Duration 6 weeks MET Shelter Goal (LTG) Pt will report compliance with HEP at least 3x/wk in order to promote independence with exercise after discharge from PT LTG Duration 12 weeks Five Impairment strength Short Term Goal (STG) Pt will improve global BLE strength to at least 4/5 MMT in order to demonstrate increased BLE strength for stability during ambulation, ADLs. 12/04/23: 3+/5 L knee flex/ext and painful; 4/5 hip flex/ext/ abd R side, 4/5 hip flex/ext and 4-/5 hip abd L side STG Duration 6 weeks PARTIALLY MET [employer] Contractor Administrator Goal (LTG) Pt will improve global BLE strength to at least 4+/5 MMT in order to demonstrate increased BLE strength for stability during ambulation, ADLs. 12/04/23: 3+/5 L knee flex/ext and painful; 4/5 hip flex/ext/ abd R side, 4/5 hip flex/ext and 4-/5 hip abd L side LTG Duration 12 weeks NOT MET Four Impairment balance Impairment DGI 05/16 Short Term Goal (STG) Pt will increase DGI score to at least 15/24 in order to demonstrate decreased fall risk and improved balance 12/04/23: with spc; L knee pain with weightbearing STG Duration 6 weeks MET [employer] Administrator Goal (LTG) Pt will increase DGI score to at least 20/24 in order to demonstrate decreased fall risk and improved balance 12/04/23: with spc; L knee pain with weightbearing LTG Duration 12 weeks NOT MET Three Impairment balance Impairment Bautista 35/56 Short Term Goal (STG) Pt will increase Bautista score to at least 44/56 in order to demonstrate improved balance during gait and transfers, in addition to decreased fall risk 12/04/23: 36/56; minimal improvement since IE STG Duration 6 weeks NOT MET Shelter Goal (LTG) Pt will increase Bautista score to at least 48/56 in order to demonstrate improved balance during gait and transfers, in addition to decreased fall risk 12/04/23: 36/56 LTG Duration 12 weeks NOT MET Two Impairment strength, gait, balance Impairment gait 1/2 mile with spc, 6 MWT distance 872 ft Short Term Goal (STG) Pt will improve 6 MWT distance by at least 100 ft in order to demonstrate improved activity tolerance, balance, and gait speed to decrease fall risk 12/04/23: 936 ft with spc; reports increase in L knee pain with gait, decreased L stance time STG Duration 6 weeks PROGRESSING [employer]or Administrator Goal (LTG) Pt will ambulate using LRAD during 6 MWT distance >1100 ft (1 MCID) in order to demonstrate improved activity tolerance, balance, and gait speed to decrease fall risk 12/04/23: 936 ft with spc; reports increase in L knee pain with gait, decreased L stance time LTG Duration 12 weeks NOT MET One Impairment strength, function Impairment 5x STS 15 seconds without UE assist, 20 plinth Short Term Goal (STG) Pt will be able to perform at least 5 STS from a chair without UE assist, using LRAD as needed in order to demonstrate improved BLE strength for transfers and mobility 12/04/23: 17 seconds, no UE asisstance STG Duration 6 weeks MET Shelter Goal (LTG) Pt will be able to perform 5x STS in 12 seconds or less from plinth in order to meet age related norms and to demonstrate increased BLE strength 12/04/23: 17 seconds LTG Duration 12 weeks NOT MET Progress Towards Goals Progress Towards Goals Progressing Toward Goals,Slow Progress due to Medical Issues ,Slow Progress - Other Progress Comments Improvement in DGI and 5x STS performance. Limited by L knee pain Assessment Summary Assessment Pt reports increase in L knee pain during session especially with weightbearing. Session emphasis on gait and balance training to address goals. Pt able to ambulate further during 6 MWT with spc, but has L knee pain onset at half-way bola. Cued for L arm swing and upright posture with core bracing. Pt challenged during Bautista and DGI testing. Most limited with weight shifting and weight bearing on LLE, in addition to activities that involve changing MARTINE. Pt able to balance better with dynamic balance than with static balance activities. Physical Therapy Plan Frequency and Duration Frequency of Treatment 2x/Week Duration of treatment (weeks) 12 Plan of Care Start Date 10/24/23 Plan of Care End Date 01/19/24 Therapeutic Interventions Therapeutic Interventions Balance Training,Coordination Training,Gait Training,Home Exercise Program,Joint Mobilizations,Manual Therapy, Neuromuscular Re-education, Orthotic/Prosthetic Management ,Patient/Caregiver Education, Self-Care/Home Management, Sensory Integration,Soft Tissue Mobilization,Taping, Therapeutic Activities, Therapeutic Exercises Discharge Physical Therapy Discharge Reasons Patient Request Discharge Comments Pt has new onset L knee pain that is limiting progression with PT, and she is wanting further assessment due to pain with weightbearing, gait, and ADLs. Pt requesting discharge from PT until further assessment from PCP Next Visit Focus/Plan Next Visit Plan Discharge from PT with referral back to PCP. Will need new referral to return to PT
== END 2023-12-06 13:52 | disposition home or self-care (01) ==
LOC: PHYS 09:00
PROVIDERS: Family Provider Family Medicine; PCP Family Medicine; Referring Provider Family Medicine; Visit Provider Family Medicine
DX: R26.81 Unsteadiness on feet (principal); W19.XXXA Unspecified fall, initial encounter; Y92.009 Unspecified place in unspecified non-institutional (private) residence as the place of occurrence of the external cause; R53.1 Weakness; R27.8 Other lack of coordination
CPT/HCPCS: 97110; 97112; 97116; 97140; 97162; 97530

== ENCOUNTER → 2024-01-05 09:01 | Outpatient (CLI) | payer MEDICARE, SELFPAY ==
[2024-01-05 11:51] LABS: BUN Creatinine Ratio 17.9 (6-22); Blood Urea Nitrogen 24 mg/dL (7-17); Calcium 9.6 mg/dL (8.4-10.2); Carbon Dioxide 28 mmol/L (22-32); Chloride 103 mmol/L (98-107); Estimated Glomerular Filt Rate 43 mL/min (>60); Glucose 229 mg/dL (80-110); HEMOLYSIS < 15 (0-50); Potassium 4.2 mmol/L (3.4-5.1); Sodium 138 mmol/L (137-145)
[2024-01-05 12:39] LABS: Creatinine Urine Random 42.45 mg/dL; Protein (Total) Urine Random 11 mg/dL (0-12); Protein Creatinine Ratio Urine 0.25 GRAM/24H
== END ==
LOC: LAB 09:03
PROVIDERS: Family Provider Family Medicine; PCP Family Medicine; Referring Provider Student in an Organized Health Care Education/Training Program; Visit Provider Student in an Organized Health Care Education/Training Program
DX: N05.9 Unspecified nephritic syndrome with unspecified morphologic changes (principal); R80.9 Proteinuria, unspecified
CPT/HCPCS: 36415; 80048; 82570; 84156

== ENCOUNTER → 2024-04-04 09:24 | Outpatient (CLI) | payer MEDICARE, SELFPAY ==
[2024-04-04 11:15] LABS: BUN Creatinine Ratio 13.1 (6-22); Blood Urea Nitrogen 11 mg/dL (7-17); Calcium 9.7 mg/dL (8.4-10.2); Carbon Dioxide 22 mmol/L (22-32); Chloride 109 mmol/L (98-107); Estimated Glomerular Filt Rate > 60 mL/min (>60); Glucose 182 mg/dL (80-110); Potassium 4.2 mmol/L (3.4-5.1); Sodium 138 mmol/L (137-145)
[2024-04-04 11:29] LABS: Protein (Total) Urine Random 14 mg/dL (0-12); Protein Creatinine Ratio Urine 0.24 GRAM/24H
[2024-04-04 11:34] LABS: HEMOLYSIS 98 (0-50)
== END ==
PROVIDERS: Family Provider Family Medicine; PCP Family Medicine; Referring Provider Student in an Organized Health Care Education/Training Program; Visit Provider Student in an Organized Health Care Education/Training Program
DX: N05.9 Unspecified nephritic syndrome with unspecified morphologic changes (principal); R80.9 Proteinuria, unspecified
CPT/HCPCS: 36415; 80048; 82570; 84156

== ENCOUNTER 2024-04-26 11:26 | Emergency (ER) | payer MEDICARE, SELFPAY ==
[2024-04-26] VITALS (13 sets, daily range): BP systolic 133–164; BP diastolic 71–85; PULSE 79–99; RESP 16–24; O2SAT 96–98; BMI 36.0
--- NOTE | 2024-04-26 11:42 | ED_ITS ---
HPI - Nausea/Vomiting/Diarrhea General Chief complaint: Nausea/Vomiting/Diarrhea Stated complaint: diarrhea t-10, weakness/nausea, skin infection Time Seen by Provider: 04/26/24 11:42 Source: patient, family, RN notes reviewed and old records reviewed Mode of arrival: Family Vehicle Limitations: no limitations History of Present Illness HPI Narrative: This is a 68-year-old female with history of DVTs on Xarelto, type 2 diabetes, dyslipidemia, CKD, hypertension, hypothyroidism who presents with complaint of diarrhea for the past 10+ days. Patient states frequently every 2-3 hours at home, she states it is watery kind of explosive smaller amounts, no mucus no blood or black stools or appreciated. Patient states has not really had any abdominal pain. Denies any fevers. She has had nausea and decreased appetite. She vomited once today. States she is felt increasingly weak and started have some trouble getting around the house no complaints of chest pain or shortness of breath. No abdominal back or flank pain that is new. Does have chronic back and hip pain when she takes oxycodone regularly for. She states no changes to the characterize this. Patient states she has had prior surgeries for bowel obstructions in the past, cholecystectomy, hip repair. States allergies to sulfa, Tylenol and marijuana. No tobacco, alcohol monthly, no recreational drugs. Patient presents today she missed her primary care appointment on Monday, call the office to reschedule in the encouraged her to come to the department. She is accompanied by her son. Related Data Home Medications Medication Instructions Recorded Confirmed mecobalamin (vitamin B12) PO 08/10/22 02/06/24 sodium bicarbonate 325 mg tablet 650 mg PO BID 11/03/23 02/06/24 Previous Rx's Medication Instructions Recorded empagliflozin 10 mg tablet 10 mg PO DAILY #90 tabs 09/13/23 (Jardiance) amlodipine 10 mg tablet (Norvasc) 10 mg PO DAILY #90 tabs 09/25/23 levothyroxine 112 mcg tablet See Rx Instructions .Route 09/25/23 .COMPLEX #90 tabs fenofibrate 160 mg tablet 160 mg PO DAILY for cholesterol 12/28/23 #90 tabs furosemide 20 mg tablet (Lasix) 20 mg PO DAILY edema #90 tabs 02/06/24 apixaban 5 mg tablet (Eliquis) 5 mg PO BID #180 tabs 04/29/24 Allergies Allergy/AdvReac Type Severity Reaction Status Date / Time Sulfa (Sulfonamide Allergy Severe Anaphylaxis Verified 04/26/24 11:36 Antibiotics) acetaminophen Allergy Mild Vomiting Verified 04/26/24 11:36 marijuana (cannabis) Allergy Anaphylaxis Verified 04/26/24 11:36 Review of Systems Review of Systems ROS Unobtainable: All systems reviewed & are unremarkable except as noted in HPI and below Patient History Medical History DVT of leg (deep venous thrombosis) Opiate dependence Encounter for subsequent annual wellness visit (AWV) in Medicare patient Diabetic peripheral neuropathy Type 2 diabetes mellitus with complication, without long-term current use of insulin Hyperlipidemia CKD (chronic kidney disease) stage 3, GFR 30-59 ml/min Narcolepsy (~1999) Depression TIA (transient ischemic attack) (~2017) Peripheral neuropathy (~04/2022) Fractures Chicken pox Vertigo (~1969) Heavy menstrual period (~1970) Abnormal Pap smear of cervix (~1978) Hemorrhoid (~1979) Colon polyps Deep vein thrombosis Cervical cancer Chronic pain Benign essential HTN Hypothyroidism (~2009) Surgical History Anesthesia Family History Father Diabetes mellitus History of heart disease Stroke Mother History of heart disease Grandfather History of heart disease Grandmother History of heart disease Grandfather Parkinson's disease Grandmother Alzheimer's disease Social History Smoking Status: Former smoker Smoking Status: Former smoker tobacco type: cigarettes alcohol intake frequency: a few times a week Substance Use Type: does not use Exam Narrative Exam Narrative: GENERAL: Alert and oriented x three, female in mild distress. HEENT: Head normocephalic, atraumatic, EOMI, pupils reactive, face symmetric, moist mucous membranes NECK: Supple, full range of motion CARDIOVASCULAR: Regular rate and rhythm without murmurs, rubs or gallops. RESPIRATORY: Breath sounds equal bilaterally, no wheezes rales or rhonchi. ABDOMEN: Soft, nontender. Nondistended. Normoactive bowel sounds all 4 quadrants. No guarding or rebound, rigidity, no mass : No CVA tenderness EXTREMITIES: Normal range of motion, no clubbing or edema. Neurovascularly intact NEUROLOGICAL: Cranial nerves II through XII grossly intact. Moving all extremities SKIN: Warm, dry, no petechiae, patient does have erythema and irritation of the groin and rectal area. No open wound. Initial Vital Signs Initial Vital Signs: Vital Signs Pulse Rate 92 H 04/26/24 11:26 Respiratory Rate 20 04/26/24 11:26 Blood Pressure 159/82 H 04/26/24 11:26 Pulse Oximetry 97 04/26/24 11:26 Oxygen Delivery Method Room Air 04/26/24 11:26 Course Orders Ordered: Discontinued Medications Ondansetron HCl (Ondansetron 4 Mg/2 Ml Inj) 4 mg IV NOW PRN PRN Reason: Nausea And Vomiting Ondansetron HCl (Ondansetron 4 Mg Odt) 4 mg PO NOW PRN PRN Reason: Nausea And Vomiting Ondansetron HCl (Ondansetron 4 Mg/2 Ml Inj) 4 mg IV NOW ONE Stop: 04/26/24 11:53 Last Admin: 04/26/24 12:09 Dose: 4 mg Documented By: DENZEL Oxycodone HCl (Oxycodone Ir 5 Mg Tablet) 5 mg PO NOW ONE Stop: 04/26/24 11:53 Last Admin: 04/26/24 12:10 Dose: 5 mg Documented By: DENZLE Vital Signs Vital signs: Vital Signs - 8 hr 04/26/24 11:26 04/26/24 11:32 04/26/24 11:33 Pulse Rate 92 H 99 H Respiratory Rate 20 Blood Pressure 159/82 H 159/82 H Pulse Oximetry 97 96 Oxygen Delivery Method Room Air 04/26/24 11:33 04/26/24 12:00 04/26/24 12:00 Pulse Rate 97 H 82 Respiratory Rate 17 Blood Pressure 150/71 H Pulse Oximetry 97 97 Oxygen Delivery Method 04/26/24 12:27 04/26/24 12:27 04/26/24 12:30 Pulse Rate 85 Respiratory Rate 20 Blood Pressure 164/81 H 147/77 H Pulse Oximetry 98 Oxygen Delivery Method 04/26/24 12:30 04/26/24 13:00 04/26/24 13:00 Pulse Rate 80 85 Respiratory Rate 18 23 Blood Pressure 133/74 Pulse Oximetry 97 96 Oxygen Delivery Method 04/26/24 13:30 04/26/24 13:30 04/26/24 13:40 Pulse Rate 84 99 H Respiratory Rate 24 20 Blood Pressure 149/83 H Pulse Oximetry 97 96 Oxygen Delivery Method 04/26/24 13:40 04/26/24 14:00 04/26/24 14:00 Pulse Rate 79 Respiratory Rate 19 Blood Pressure 142/85 H 136/78 Pulse Oximetry 97 Oxygen Delivery Method 04/26/24 14:30 04/26/24 14:30 04/26/24 15:00 Pulse Rate 86 Respiratory Rate 22 Blood Pressure 153/84 H 139/80 Pulse Oximetry 96 Oxygen Delivery Method 04/26/24 15:00 04/26/24 15:35 Pulse Rate 89 90 Respiratory Rate 20 16 Blood Pressure 139/80 Pulse Oximetry 96 96 Oxygen Delivery Method Room Air MDM - Nausea/Vomiting/Diarrhea Lab Data 04/26/24 11:40 04/26/24 11:40 Labs: Lab Results 04/26/24 04/26/24 04/26/24 Range/Units 11:40 13:39 17:25 WBC 7.4 (4.5-11.0) X10^3/uL RBC 5.38 H (4.0-5.2) X10^6/uL Hgb 15.6 (12.0-16.0) g/dL Hct 45.8 (36-46) % MCV 85.1 (80-100) fL MCH 29.0 (26-34) PG MCHC 34.0 (30-36) % RDW 16.0 H (11.6-14.8) % Plt Count 354 (150-400) X10^3/uL Neut % (Auto) 73.8 (50-75) % Lymph % (Auto) 18.3 L (25-40) % Person % (Auto) 4.5 (3-14) % Eos % (Auto) 2.0 (2-4) % Baso % (Auto) 1.4 (0-2) % Neut # (Auto) 5500 (4958-0678) /uL Lymph # (Auto) 1400 (7310-2090) /uL Person # (Auto) 300 (0-900) /uL Eos # (Auto) 100 (0-450) /uL Baso # (Auto) 100 (0-100) /uL Sodium 133 L (137-145) mmol/L Potassium 5.2 H (3.4-5.1) mmol/L Chloride 104 (98-107) mmol/L Carbon Dioxide 17 L (22-32) mmol/L BUN 16 (7-17) mg/dL Creatinine 0.93 (0.52-1.04) mg/dL Estimated GFR > 60 (>60) mL/min BUN/Creatinine Ratio 17.2 (6-22) Glucose 141 H (80-110) mg/dL Calcium 9.5 (8.4-10.2) mg/dL Total Bilirubin 2.1 H (0.2-1.3) mg/dL AST 52 H (14-36) IU/L ALT 21 (<35) IU/L Alkaline Phosphatase 37 L (38-126) U/L Total Protein 8.6 H (6.3-8.2) g/dL Albumin 5.4 H (3.5-5.0) g/dL Globulin 3.2 (1.7-4.1) g/dL Albumin/Globulin Ratio 1.7 (1.0-2.8) Lipase 213 (23-300) U/L Urine RBC 1-5/hpf (0-5/HPF) Urine WBC None seen (0-5/HPF) Ur Squamous Epith Cells 1-5 /hpf (0-5/HPF) Urine Bacteria None seen (None) Ur Culture Indicated? Cult not indicated Vol Urine Centrifuged 10ml (spun) Stl C. cayetanensis PCR Not detected (Not Detect) Stool Rotavirus (PCR) Not detected (Not Detect) Stool Adenovirus (PCR) Not detected (Not Detect) Stool Astrovirus (PCR) Not detected (Not Detect) Stool Cryptosporidium PCR Not detected (Not Detect) Stl E.coli Shiga Tox PCR Not detected (Not Detect) St Sh/Enteroin Ecoli PCR Not detected (Not Detect) Stl Enterotoxigenic E PCR Not detected (Not Detect) Stool EPEC (PCR) Not detected (Not Detect) Stl E. histolytica PCR Not detected (Not Detect) Stool Giardia Lamblia PCR Not detected (Not Detect) Stool Sapovirus (PCR) Not detected (Not Detect) Stl P. shigelloides PCR Not detected (Not Detect) St Y.enterocolitica PCR Not detected (Not Detect) Stool Vibrio (PCR) Not detected (Not Detect) Stl Vibrio cholerae PCR Not detected (Not Detect) Stl Enteroaggr Ecoli PCR Not detected (Not Detect) Stl Norovirus GI/GII PCR Not detected (Not Detect) Campylobacter (PCR) Not detected (Not Detect) C. difficile Tox (PCR) Not detected (Not Detect) Salmonella (PCR) Not detected (Not Detect) Urine Dip Bedside Urine Glucose 1000 mg/dl Bedside Urine Bilirubin - Negative Bedside Urine Ketone - Negative Urine Specific [place] 1.010 Bedside Urine Occult Blood +/- Bedside Urine pH 6.0 Bedside Urine Protein - Negative Bedside Urine Urobilinogen - Negative Bedside Urine Nitrite - Negative Bedside Urine Leukocytes - Negative Esterase Imaging Data CT scan - abdomen/pelvis: Radiologist's Impression: Close Abdomen/Pelvis CT (Signed) Jose Mcdermott - 04/26/24 Launch?Image [address] [address] [address] Scan Report Signed Patient: Nicole Chow MR#: [id number] : 1955 Acct:[id number] Age/Sex: 68 / F Date of Service: 04/26/24 Loc: ED Accession Number: [id number] Procedure: CT abdomen pelvis w con Ordering Provider: Anna Hurtado D.O. PROCEDURE: CT ABDOMEN PELVIS W CON INDICATIONS: diarrhea 10+ days, vomited today, no pain, hx bowel obstruct TECHNIQUE: After the administration of intravenous contrast, axial sections acquired from the lung bases to the pubic symphysis. Coronal and sagittal reformats were performed. For radiation dose reduction, the following was used: automated exposure control, adjustment of mA and/or kV according to patient size. COMPARISON: [facility], CT, CT ABDOMEN PELVIS W CON, 06/07/2023, 16:10. FINDINGS: Image quality: Suboptimal due to motion artifact and beam hardening artifact. Lower Chest: No significant findings. ABDOMEN: Liver: No solid mass. Gallbladder: Absent. Biliary ducts: No biliary dilation. Pancreas: No ductal dilation. Spleen: Size is within normal limits. Adrenal Glands: No adrenal nodules. Kidneys and Ureters: No hydronephrosis. No solid mass. No complex renal cystic lesion which requires follow up. Stomach and Bowel: Normal colonic caliber, without significant wall thickening. Prior enterotomy, with surgical anastomosis in the mid abdomen. Colonic diverticulosis without evidence of diverticulitis. Peritoneum: No abnormal intraperitoneal fluid. No free air. Ventral Wall: Wide-mouth ventral hernia containing a short segment of nonobstructed transverse colon. Abdominal Nodes: No retroperitoneal or mesenteric adenopathy by size criteria. Vessels: Aorta and inferior vena cava are normal in size. PELVIS: Pelvic Organs: Unremarkable. Bladder: Perivesicular fat stranding. Pelvic Nodes: No enlarged lymph nodes. Miscellaneous: No inguinal hernias are seen. Bones: No aggressive osseous abnormality. Extensive surgical fusion of the thoracolumbar spine and S1. IMPRESSION: Perivesicular fat stranding which may indicate cystitis. No evidence of obstruction or enterocolitis. Dictated by: Jose Mcdermott M.D. on 04/26/2024 at 12:34 Approved by: Jose Mcdermott M.D. on 04/26/2024 at 12:42 ECG Data Attestation: I personally reviewed and interpreted this ECG as follows: Interpretation: Sinus rhythm rate 83 AR 178 QRS 84 QTC 467, no acute ST elevation depression noted. MDM Narrative Medical decision making narrative: 68-year-old female with persistent diarrhea for 10+ days, no reports of fevers do develop nausea recently and had 1 episode of vomiting today. Has a history of bowel obstructions but states that was pain in his not been similar presentation. No recent antibiotics, she has not had any similar episodes like this in the past. Labs show white count of 7.4 hemoglobin 15.6 platelets of 354. Electrolytes shows sodium of 133 potassium of 5.2, chloride of 104 CO2 of 17 BUN 16 creatinine 0.93 and glucose of 141 calcium is 9.5 bilirubin is 2.1 with a AST of 52 ALT 21 alk-phos of 37 lipase is normal at 213. EKG shows sinus rhythm CT abdomen pelvis shows wide mouth ventral hernia containing short segment of nonobstructed transverse colon,. Vesicular fat stranding extensive surgical fusion thoracolumbar spine and S1. GI panel was not able to be obtained. Urine micro shows 1-5 red cells no white cells 1-5 squamous. Patient's labs show elevated bilirubin slight elevation of AST, patient does not have any abdominal pain she has had a prior cholecystectomy. CT abdomen pelvis does not show any major changes to biliary ducts. Patient has not had any persistent diarrhea, she is tolerated oral fluids here. After discussion we will send home with prescription have GI panel performed results to primary care. Did discuss her bilirubin is elevated today which is atypical her other LFTs are overall appropriate she is nontender right upper quadrant afebrile we discussed obtaining MRCP but after discussion we will hold off and have patient follow up with plan to repeat labs as outpatient and return if any worsening symptoms. Discharge Plan Departure Patient Disposition: Home Clinical Impression: Diarrhea Instructions: Diarrhea Activity Restrictions/Additional Instructions: Follow up with Dr. Block, your bilirubin today was elevated they should repeat this to make sure it has not continuing to trend upwards or have other elevations in your liver enzymes. There is an order for a GI panel, you can drop off a sample during business hours to the lab. The sample should not be more than 1 hour old when dropped off. You can use combination of zinc oxide and A&D ointment to the affected area in the groin and rectal area as a barrier cream. Place this after taking a shower were rinsing the area. You can replace after bowel movements or urination after cleansing the area with water. Please return for fevers, new abdominal back or flank pain, lightheadedness or passing out, any vomiting, if you are having black or bloody stools or were new or worsening changes. Prescriptions: No Action mecobalamin (vitamin B12) PO fenofibrate 160 mg tablet 160 mg PO DAILY Qty: 90 3RF Eliquis 5 mg tablet 5 mg PO BID Qty: 180 3RF Rx Instructions: stop xarelto amlodipine [Norvasc] 10 mg tablet 10 mg PO DAILY Qty: 90 3RF levothyroxine 112 mcg tablet See Rx Instructions .ROUTE .COMPLEX Qty: 90 3RF Dose Instruction: TAKE 1 TABLET BY MOUTH DAILY Rx Instructions: TAKE 1 TABLET BY MOUTH DAILY sodium bicarbonate 325 mg tablet 650 mg PO BID Jardiance 10 mg tablet 10 mg PO DAILY Qty: 90 3RF furosemide [Lasix] 20 mg tablet 20 mg PO DAILY Qty: 90 3RF Referrals: Higinio Block DO [Primary Care Provider] - Stand Alone Forms: Patient Portal/API
[2024-04-26 11:48] LABS: Add Manual Diff / Slide Review NO; Basophils Absolute Auto 100 /uL (0-100); Basophils Percent Auto 1.4 % (0-2); Eosinophils Absolute Auto 100 /uL (0-450); Hematocrit 45.8 % (36-46); Hemoglobin 15.6 g/dL (12.0-16.0); Lymphocytes Absolute Auto 1400 /uL (1100-4500); Lymphocytes Percent Auto 18.3 % (25-40); Mean Corpuscular Volume 85.1 fL (80-100); Monocytes Absolute Auto 300 /uL (0-900); Monocytes Percent Auto 4.5 % (3-14); Neutrophils Absolute Auto 5500 /uL (1500-7000); Neutrophils Percent Auto 73.8 % (50-75); Platelet Count 354 X10^3/uL (150-400); Red Blood Cell Count 5.38 X10^6/uL (4.0-5.2); White Blood Cell Count 7.4 X10^3/uL (4.5-11.0)
--- NOTE | 2024-04-26 11:53 | DI.CT.S_ITS ---
PROCEDURE: CT ABDOMEN PELVIS W CON INDICATIONS: diarrhea 10+ days, vomited today, no pain, hx bowel obstruct TECHNIQUE: After the administration of intravenous contrast, axial sections acquired from the lung bases to the pubic symphysis. Coronal and sagittal reformats were performed. For radiation dose reduction, the following was used: automated exposure control, adjustment of mA and/or kV according to patient size. COMPARISON: [facility], CT, CT ABDOMEN PELVIS W CON, 06/07/2023, 16:10. FINDINGS: Image quality: Suboptimal due to motion artifact and beam hardening artifact. Lower Chest: No significant findings. ABDOMEN: Liver: No solid mass. Gallbladder: Absent. Biliary ducts: No biliary dilation. Pancreas: No ductal dilation. Spleen: Size is within normal limits. Adrenal Glands: No adrenal nodules. Kidneys and Ureters: No hydronephrosis. No solid mass. No complex renal cystic lesion which requires follow up. Stomach and Bowel: Normal colonic caliber, without significant wall thickening. Prior enterotomy, with surgical anastomosis in the mid abdomen. Colonic diverticulosis without evidence of diverticulitis. Peritoneum: No abnormal intraperitoneal fluid. No free air. Ventral Wall: Wide-mouth ventral hernia containing a short segment of nonobstructed transverse colon. Abdominal Nodes: No retroperitoneal or mesenteric adenopathy by size criteria. Vessels: Aorta and inferior vena cava are normal in size. PELVIS: Pelvic Organs: Unremarkable. Bladder: Perivesicular fat stranding. Pelvic Nodes: No enlarged lymph nodes. Miscellaneous: No inguinal hernias are seen. Bones: No aggressive osseous abnormality. Extensive surgical fusion of the thoracolumbar spine and S1. IMPRESSION: Perivesicular fat stranding which may indicate cystitis. No evidence of obstruction or enterocolitis. Dictated by: Jose Mcdermott M.D. on 04/26/2024 at 12:34 Approved by: Jose Mcdermott M.D. on 04/26/2024 at 12:42
[2024-04-26 12:04] LABS: Alanine Aminotransferase 21 IU/L (<35); Albumin 5.4 g/dL (3.5-5.0); Albumin Globulin Ratio 1.7 (1.0-2.8); Alkaline Phosphatase 37 U/L (38-126); Aspartate Aminotransferase 52 IU/L (14-36); BUN Creatinine Ratio 17.2 (6-22); Bilirubin Total 2.1 mg/dL (0.2-1.3); Blood Urea Nitrogen 16 mg/dL (7-17); Calcium 9.5 mg/dL (8.4-10.2); Carbon Dioxide 17 mmol/L (22-32); Chloride 104 mmol/L (98-107); Estimated Glomerular Filt Rate > 60 mL/min (>60); Globulin 3.2 g/dL (1.7-4.1); Glucose 141 mg/dL (80-110); HEMOLYSIS 347 (0-50); Lipase 213 U/L (23-300); Potassium 5.2 mmol/L (3.4-5.1); Sodium 133 mmol/L (137-145); Total Protein 8.6 g/dL (6.3-8.2)
[2024-04-26] MEDS: ONDANSETRON 4 MG/2 ML INJ IV (12:09)
--- NOTE | 2024-04-26 12:09 | EKG_ITS ---
[place] [id number] [place] [id number] Test Date: 2024-04-26 Pat Name: Nicole Chow Department: [facility] Room: Gender: Female [facility] Teacher: DAVON : 1955 Requested By: Order Number: [id number] Reading MD: Bhupinder Fox MD Measurements Intervals [place] Rate: 83 P: 36 [place]: 178 QRS: -8 QRSD: 84 T: 43 QT: 398 QTc: 467 Interpretive Statements Normal sinus rhythm Minimal voltage criteria for LVH, may be normal variant ( R in aVL ) Inferior infarct , age undetermined Electronically Signed On 04-26-2024 16:28:47 PDT by Bhupinder Fox MD
[2024-04-26] MEDS: OXYCODONE IR 5 MG TABLET PO (12:10)
[2024-04-26 13:55] LABS: Urine Volume 10mL (spun)
[2024-04-26 14:02] LABS: Bacteria Urine None Seen; Culture Indicated Urine Cult Not Indicated; RBC Urine 1-5/HPF (0-5/HPF); Squamous Epithelial Cell Urine 1-5 /HPF (0-5/HPF); WBC Urine None Seen (0-5/HPF)
--- NOTE | 2024-04-26 14:09 | PC.NURSE ---
Diarrhea x 10 days. Denies any sick exposure or recent antibiotic use. Pt states she started to feel very weak. Pt states she has been going every 2 hours.
[2024-04-26 18:58] LABS: Adenovirus F 40/41 Not Detected (Not Detect); Astrovirus Not Detected (Not Detect); Campylobacter Not Detected (Not Detect); Clostridium difficile toxin AB Not Detected (Not Detect); Cryptosporidium Not Detected (Not Detect); Cyclospora cayetanensis Not Detected (Not Detect); Entamoeba histolytica Not Detected (Not Detect); Enteroaggregative E.coli Not Detected (Not Detect); Enteropathogenic E.coli Not Detected (Not Detect); Enterotoxigenic E.coli It/st Not Detected (Not Detect); Giardia lamblia Not Detected (Not Detect); Norovirus GI/GII Not Detected (Not Detect); Plesiomonsa shigelloides Not Detected (Not Detect); Rotavirus A Not Detected (Not Detect); Salmonella Not Detected (Not Detect); Sapovirus Not Detected (Not Detect); Shiga-like toxin-prod E.coli Not Detected (Not Detect); Shigella/Enteroinvasive E.coli Not Detected (Not Detect); Vibrio Not Detected (Not Detect); Vibrio cholerae Not Detected (Not Detect); Yersinia enterocolitica Not Detected (Not Detect)
== END 2024-04-26 15:36 | disposition home or self-care (01) ==
PROVIDERS: Emergency Provider Emergency Medicine; Family Provider Family Medicine; PCP Family Medicine
DX: R19.7 Diarrhea, unspecified (principal); R11.10 Vomiting, unspecified; Z79.01 Long term (current) use of anticoagulants; R10.9 Unspecified abdominal pain
CPT/HCPCS: 74177; 80053; 81003; 81015; 83690; 85025; 87507; 93005; 93010; 96374; 99284; J2405; Q9967

== ENCOUNTER → 2024-05-07 09:06 | Outpatient (CLI) | payer MEDICARE, SELFPAY ==
[2024-05-07 10:46] LABS: Alanine Aminotransferase 16 IU/L (<35); Albumin 4.6 g/dL (3.5-5.0); Albumin Globulin Ratio 1.8 (1.0-2.8); Alkaline Phosphatase 86 U/L (38-126); Aspartate Aminotransferase 23 IU/L (14-36); Bilirubin Unconjugated 0.8 mg/dL (0.0-1.1); Globulin 2.6 g/dL (1.7-4.1); HEMOLYSIS < 15 (0-50); Total Protein 7.2 g/dL (6.3-8.2)
== END ==
PROVIDERS: Family Provider Family Medicine; PCP Family Medicine; Referring Provider Family Medicine; Visit Provider Family Medicine
DX: R74.8 Abnormal levels of other serum enzymes (principal)
CPT/HCPCS: 36415; 80076

== ENCOUNTER 2024-06-14 10:49 | Emergency (ER) | payer MEDICARE, SELFPAY ==
[2024-06-14 10:52] VITALS: BP 146/81; PULSE 96; RESP 14; TEMP 37.1; O2SAT 95; BMI 35.6
--- NOTE | 2024-06-14 10:55 | DI.RAD.S_ITS ---
PROCEDURE: XR KNEE LT 3V INDICATIONS: knee pain TECHNIQUE: 3 views of the knee were acquired. COMPARISON: None. FINDINGS: Bones: No fractures or dislocations. No suspicious bony lesions. Tricompartmental degenerative change. Soft tissues: Mild joint effusion. No suspicious soft tissue calcifications. IMPRESSION: Mild effusion. No visualized acute fracture or dislocation. However, if clinical concern and/or pain persist, short interval imaging followup in 7-10 days is recommended, as occult injury cannot be definitively excluded. Dictated by: Ambika Cary M.D. on 06/14/2024 at 11:28 Approved by: Ambika Cary M.D. on 06/14/2024 at 11:28
--- NOTE | 2024-06-14 11:30 | ED_ITS ---
HPI - Extremity Injury (Lower) <Kailey Cifuentes PA-C - Last Filed: 06/14/24 12:04> General Chief Complaint: Extremity Injury, Lower Stated Complaint: L knee pain Time Seen by Provider: 06/14/24 11:07 Source: patient Mode of arrival: Ambulatory History of Present Illness HPI Narrative: Ms. Chow is a very pleasant 68-year-old female with a past medical history of HTN, HLD, T2 DM, peripheral neuropathy, abdominal hernia, chronic pain on oxycodone, CKD, DVT on Eliquis who presents to the emergency department for left knee pain x3 days. Patient reports while she was walking in her house she noticed her left knee kind of ?gave out? on her. She has had lateral and anterior left knee pain since then. States that the pain is exacerbated by bearing weight onto the left knee and is relieved by resting. Flexing and extending the knee does not exacerbate the pain. She denies any increased swelling of the leg, calf or lower leg pain or swelling, or erythema fevers or chills. She did not fall or have any direct trauma to the knee. She is compliant with her Eliquis. Related Data Home Medications Medication Instructions Recorded Confirmed mecobalamin (vitamin B12) PO 08/10/22 05/11/24 sodium bicarbonate 325 mg tablet 650 mg PO BID 11/03/23 05/11/24 furosemide 20 mg tablet (Lasix) 20 mg PO DAILY PRN edema 05/07/24 05/11/24 Previous Rx's Medication Instructions Recorded empagliflozin 10 mg tablet 10 mg PO DAILY #90 tabs 09/13/23 (Jardiance) amlodipine 10 mg tablet (Norvasc) 10 mg PO DAILY #90 tabs 09/25/23 levothyroxine 112 mcg tablet See Rx Instructions .Route 09/25/23 .COMPLEX #90 tabs fenofibrate 160 mg tablet 160 mg PO DAILY for cholesterol 12/28/23 #90 tabs apixaban 5 mg tablet (Eliquis) 5 mg PO BID #180 tabs 04/29/24 Disabled Parking Permit #1 ea 05/07/24 cholestyramine (with sugar) 4 gram 2 g PO TID PRN diarrhea #348.6 05/07/24 oral powder grams oxycodone 5 mg tablet 5 mg PO TID PRN pain #90 tabs 05/07/24 Allergies Allergy/AdvReac Type Severity Reaction Status Date / Time Sulfa (Sulfonamide Allergy Severe Anaphylaxis Verified 06/14/24 10:52 Antibiotics) acetaminophen Allergy Mild Vomiting Verified 06/14/24 10:52 marijuana (cannabis) Allergy Anaphylaxis Verified 06/14/24 10:52 Review of Systems <Kailey Cifuentes PA-C - Last Filed: 06/14/24 12:04> Review of Systems ROS Unobtainable: All systems reviewed & are unremarkable except as noted in HPI and below Patient History <Kailey Cifuentes PA-C - Last Filed: 06/14/24 12:04> Medical History DVT of leg (deep venous thrombosis) Opiate dependence Encounter for subsequent annual wellness visit (AWV) in Medicare patient Diabetic peripheral neuropathy Type 2 diabetes mellitus with complication, without long-term current use of insulin Hyperlipidemia CKD (chronic kidney disease) stage 3, GFR 30-59 ml/min Narcolepsy (~1999) Depression TIA (transient ischemic attack) (~2017) Peripheral neuropathy (~04/2022) Fractures Chicken pox Vertigo (~1969) Heavy menstrual period (~1970) Abnormal Pap smear of cervix (~1978) Hemorrhoid (~1979) Colon polyps Deep vein thrombosis Cervical cancer Chronic pain Benign essential HTN Hypothyroidism (~2009) Surgical History Anesthesia Family History Father Diabetes mellitus History of heart disease Stroke Mother History of heart disease Grandfather History of heart disease Grandmother History of heart disease Grandfather Parkinson's disease Grandmother Alzheimer's disease Social History Smoking Status: Former smoker Smoking Status: Former smoker tobacco type: cigarettes alcohol intake frequency: a few times a week Substance Use Type: does not use Exam <Kailey Cifuentes PA-C - Last Filed: 06/14/24 12:04> Narrative Exam Narrative: GENERAL: 68 year old patient appears stated age. Well-developed patient, in no acute distress. HEAD: Atraumatic. Normocephalic. EYES: Extraocular motions intact. No scleral icterus. No injection or drainage. ENT: Nose without bleeding, purulent drainage. Airway patent. NECK: Trachea midline. Cervical ROM intact. CARDIOVASCULAR: Regular rate and rhythm. RESPIRATORY: ?Nonlabored respirations. ?Speaking in clear, full sentences. ?Clear to auscultation. Breath sounds equal bilaterally. No wheezes, rales, or rhonchi. ? GASTROINTESTINAL: Abdomen soft, non-tender, nondistended. Left sided ventral her fili, soft. EXTREMITIES: Tenderness to palpation of lateral left knee. No patellar tenderness. Full active and passive flexion and extension of the of the knee without pain. No reproducible knee joint laxity. BACK: Nontender without deformity or crepitance. NEURO: AOx3. ?Clear speech. ?Moves all 4 extremities appropriately. SKIN: No rash or erythema of visible areas Initial Vital Signs Initial Vital Signs: Vital Signs Temperature 98.8 F 06/14/24 10:52 Pulse Rate 96 H 06/14/24 10:52 Respiratory Rate 14 06/14/24 10:52 Blood Pressure 146/81 H 06/14/24 10:52 Pulse Oximetry 95 06/14/24 10:52 Oxygen Delivery Method Room Air 06/14/24 10:52 <Luz Elena Mishra MD - Last Filed: 06/14/24 18:23> Initial Vital Signs Initial Vital Signs: Vital Signs Temperature 98.8 F 06/14/24 10:52 Pulse Rate 96 H 06/14/24 10:52 Respiratory Rate 14 06/14/24 10:52 Blood Pressure 146/81 H 06/14/24 10:52 Pulse Oximetry 95 06/14/24 10:52 Oxygen Delivery Method Room Air 06/14/24 10:52 Course <Kailey Cifuentes PA-C - Last Filed: 06/14/24 12:04> Orders Ordered: ED Orders 06/14/24 10:55 XR knee LT 3V Stat Vital Signs Vital signs: Vital Signs - 8 hr 06/14/24 10:52 Temperature 98.8 F Pulse Rate 96 H Respiratory Rate 14 Blood Pressure 146/81 H Pulse Oximetry 95 Oxygen Delivery Method Room Air <Luz Elena Mishra MD - Last Filed: 06/14/24 18:23> Orders Ordered: ED Orders 06/14/24 10:55 XR knee LT 3V Stat Vital Signs Vital signs: Vital Signs - 8 hr 06/14/24 10:52 Temperature 98.8 F Pulse Rate 96 H Respiratory Rate 14 Blood Pressure 146/81 H Pulse Oximetry 95 Oxygen Delivery Method Room Air MDM - Extremity Injury (Lower) <Kailey Cifuentes PA-C - Last Filed: 06/14/24 12:04> Imaging Data Left Knee X-ray: My Impression: On my independent interpretation of left knee x-ray, no proximal tibia or fibula fracture. Radiologist's Impression: PROCEDURE: XR KNEE LT 3V INDICATIONS: knee pain TECHNIQUE: 3 views of the knee were acquired. COMPARISON: None. FINDINGS: Bones: No fractures or dislocations. No suspicious bony lesions. Tricompartmental degenerative change. Soft tissues: Mild joint effusion. No suspicious soft tissue calcifications. IMPRESSION: Mild effusion. No visualized acute fracture or dislocation. However, if clinical concern and/or pain persist, short interval imaging followup in 7-10 days is recomm ended, as occult injury cannot be definitively excluded. [facility] Narrative Medical decision making narrative: 68-year-old female with a past medical history significant for DVT on Eliquis, hypertension, hyperlipidemia, diabetes, chronic pain on oxycodone, CKD presents to the emergency department for left knee pain x3 days. Knee ?gave out on her? but no direct trauma. No swelling or pain of the lower leg or calf. Differential diagnosis includes but is not limited to knee fracture, knee arthritis, ligament injury, tendon injury, DVT, etc. On exam patient is in no acute distress, nontoxic appearing, afebrile. On exam patient has no swelling or tenderness of the left calf or signs concerning for DVT. Strong pedal pulses BL. She does have tenderness to palpation of the lateral knee, no joint laxity. We will obtain x-ray of the left knee. X-ray reveals tricompartmental degenerative changes and a mild joint effusion. Patient is afebrile, no pain with flexion extension of knee, no overlying erythema or other signs concerning for septic joint. After shared decision- making with patient, she would prefer an Mohsen wrap to the left knee rather than a knee immobilizer. Advised she follow up with [facility] and her PCP for further evaluation. She will continue taking her oxycodone for pain in addition to incorporating RICE therapy & Voltaren topical. We discussed ER return precautions. Patient is stable for discharge, she ambulates with a walker. Discharge Plan Departure Patient Disposition: Home Clinical Impression: Effusion of knee joint, left Knee pain, left Qualifiers: Chronicity: acute Qualified Code(s): M25.562 - Pain in left knee Tricompartment degenerative joint disease of knee Qualifiers: Laterality: left Qualified Code(s): M17.12 - Unilateral primary osteoarthritis, left knee Instructions: DI for Knee Pain Activity Restrictions/Additional Instructions: Please call to schedule an appointment with your primary care doctor who may refer you to an orthopedic doctor for further evaluation. You can call [facility] at [phone]. You may schedule an appointment with Dr. Kayli Bishop or another orthopedist. In addition to your home pain regimen, I recommend using Voltaren arthritis cream on the left knee as well. Please use RICE therapy for your pain in addition to ibuprofen/acetaminophen. Rest the painful area. Ice the area of pain/swelling for at least 15 minutes, 4x a day. Compress the area of swelling using a brace, wrap, or splint if applied. Elevate the painful or swollen extremity by supporting it above the level of the heart with pillows when sitting or laying. Please follow up with your primary care doctor within the next 2-3 days for ER follow-up. IF YOU DEVELOP ANY NEW OR WORSENING SYMPTOMS, RETURN TO THE ER! Please read the attached instructions, they highlight more specific treatments and interventions for you at home. Thank you for letting me participate in your care, Kailey Cifuentes PA-C Prescriptions: No Action mecobalamin (vitamin B12) PO fenofibrate 160 mg tablet 160 mg PO DAILY Qty: 90 3RF Eliquis 5 mg tablet 5 mg PO BID Qty: 180 3RF Rx Instructions: stop xarelto amlodipine [Norvasc] 10 mg tablet 10 mg PO DAILY Qty: 90 3RF levothyroxine 112 mcg tablet See Rx Instructions .ROUTE .COMPLEX Qty: 90 3RF Dose Instruction: TAKE 1 TABLET BY MOUTH DAILY Rx Instructions: TAKE 1 TABLET BY MOUTH DAILY sodium bicarbonate 325 mg tablet 650 mg PO BID furosemide [Lasix] 20 mg tablet 20 mg PO DAILY PRN (Reason: edema) (DME) Disabled Parking Permit See Rx Instructions .ROUTE .MEDSUPPLY Qty: 1 0RF Rx Instructions: I find this patient to be medically disabled and qualified for Disabled Parking as indicated on the accompanying Disabled Parking Application for Individuals. cholestyramine (with sugar) 4 gram powder 2 g PO TID PRN (Reason: diarrhea) Qty: 348.6 4RF oxycodone 5 mg tablet 5 mg PO TID PRN (Reason: pain) Qty: 90 0RF Rx Instructions: rx 1/3 Jardiance 10 mg tablet 10 mg PO DAILY Qty: 90 3RF Referrals: Higinio Block DO [Primary Care Provider] - Stand Alone Forms: Patient Portal/API/Survey ED Sign-out <Luz Elena Mishra MD - Last Filed: 06/14/24 18:23> Cosign ED Attending Cosignature Attestation: I was immediately available in the department for consultation throughout this patient's visit. Luz Elena Mishra MD
== END 2024-06-14 12:10 | disposition home or self-care (01) ==
PROVIDERS: Emergency Provider Physician Assistant; Family Provider Family Medicine; PCP Family Medicine
DX: M25.562 Pain in left knee (principal); M17.12 Unilateral primary osteoarthritis, left knee; M25.462 Effusion, left knee
CPT/HCPCS: 73562; 99281; 99283

== ENCOUNTER 2024-07-09 11:11 | Day surgery (SDC) | payer MEDICARE, SELFPAY ==
[2024-07-03 13:51] VITALS: BMI 35.8
[2024-07-09] VITALS (10 sets, daily range): BP systolic 108–162; BP diastolic 44–90; PULSE 84–101; RESP 14–22; TEMP 36.1–37.2; O2SAT 92–98; BMI 35.6
[2024-07-09] MEDS: LACTATED RINGERS 1,000 ML 42 ML IV (12:06)
--- NOTE | 2024-07-09 14:00 | PM.PREOP ---
Pre-operative Note COVID-19 COVID-19 status: Not tested Interval Note History & Physical reviewed/Exam performed by Physician: Yes Changes to H&P: No ASA Class (for procedural sedation): II
[2024-07-09] MEDS: CEFAZOLIN 2 GM/100 ML PREMIX 100 ML IV (14:48)
--- NOTE | 2024-07-09 14:56 | SUR.OPER ---
Supine on padded OR bed, head on pillow, arms secured on padded arm boards at <90 degrees abduction, legs uncrossed, pillow under knees, safety belt at thigh, tape over blanket over lower legs.
[2024-07-09] MEDS: BUPIVACAINE 0.5% W/ EPI (PF) 30 ML VIAL INJ (15:04)
--- NOTE | 2024-07-09 15:31 | P.OP_ITS ---
Operative Date/Time/Diagnoses Date of procedure: 07/09/24 Time of procedure: 15:31 Pre-op diagnosis: Ventral incisional hernia Post-op diagnosis: same Procedure & Clinicians Procedure: Recurrent ventral incisional hernia repair with mesh Same procedure as scheduled: Yes Surgeon: Zay Tomlinson Payroll Director: Cheng Owen Anesthesia Type: General Operative Notes Procedure in detail: Ancef was administered. The patient was brought to the operating room, placed on the table in the supine position and general endotracheal anesthesia was induced. The abdomen was prepped and draped in the usual fashion. A time-out was performed. A 7 cm incision was made in the upper midline at the top of the old surgical scar. Dissection was carried down to the hernia sac. The hernia sac was freed from the fascial ring and the peritoneal cavity was entered. There was no bowel or omentum adherent to the sac. The sac was resected. The facial defect was cleared. The defect was a proximally 5 cm transversely in 3 cm axially. The fascia was then closed transversely with multiple interrupted 0 Ethibond sutures. The subcutaneous adipose tissue was cleared off of the anterior sheath circumferentially about 2 cm in each direction. A piece of po lypropylene mesh was trimmed to fit over the fascial closure and secured with Tisseel. Once the Tisseel was dried the subcutaneous adipose tissue was closed with interrupted 3-0 Vicryl sutures. The skin was closed with multiple interrupted 3-0 Vicryl dermal sutures followed by a running 4 Monocryl subcuticular closure. Steri-Strips were applied and an abdominal binder was applied. EBL: 5 mL Specimen: None Cheng VIGIL provided assistance with exposure, retraction and closure of incisions. Post-operative Condition: stable Disposition: PACU
[2024-07-09] MEDS: HYDROMORPHONE 0.5 MG INJ IV ×2 (17:34→22:16)
[2024-07-10] MEDS: HYDROMORPHONE 0.5 MG INJ IV ×4 (00:39→07:49)
[2024-07-10] MEDS: LEVOTHYROXINE 112 MCG TABLET PO (05:41)
[2024-07-10 07:43] VITALS: BP 138/90; PULSE 76; RESP 19; TEMP 36.3; O2SAT 95
[2024-07-10] MEDS: OXYCODONE IR 5 MG TABLET PO (08:48)
[2024-07-10] MEDS: AMLODIPINE 5 MG TABLET 10 MG PO (08:48)
[2024-07-10] MEDS: FENOFIBRATE, MICRONIZED 67 MG CAPSULE 134 MG PO (08:48)
--- NOTE | 2024-07-10 09:34 | CM.DANOTE ---
Patient is a 68 yo female who was admitted [facility] on 07/09/24 for Hernia Repair. Pt has [facility] and [employer] for insurance and her PCP is Dr. Higinio Block. EMR was reviewed. Per Surgeon, pt tolerated procedure well and pain is controlled and tolerated diet and voiding and likely medically stable to discharge home today with no identified barriers to discharge. SW met bedside with pt and her adult son/DPYADI Cardona and explained role and pt confirms she lives at home in [place] alone but has neighbor friends that live next door that can assist if needed. Pt does not use DME for ambulation at baseline and still drives and independent with ADLs. Pt denies any hx of HH or SNF. Son confirms he is a Molecular Biology Professor with some medical knowledge and he lives in [place] but just got off a 48 hour shift so he has the next few days off work and can stay with the pt if needed but not anticipating pt needing this. Pt confirms her preference is to discharge home today and no anticipated needs at this time. Plan: Patient to d/c home today via son POV and assist and outpt f/u and no further SW needs at this time. ZEYAD Kapoor Discharge Planning/Care Management CM Discharge Assessment Start: 07/10/24 09:30 Freq: Status: Active Protocol: Document 07/10/24 09:32 BF (Rec: 07/10/24 09:34 BF [id number]) Discharge Planning Assessment Assigned Superannuation Funds Manager ZEYAD Bragg DPYADI/Assigned Designee Name dominick Cardona Contact Information [phone] Advance Directives? Yes Advance Directives on File No History Provided By Patient,Family Member,Medical Record Has Patient been admitted in last 30 No days? Prior Living Arrangements House Household Members none Type of transporation used prior to Drives own vehicle admit Independent with ADL's Yes Is patient alert and oriented? Yes Caregiver for Another No Barriers to Discharge No Discharge Plan Home Transportation Arrangement son is bedside and confirms he will transport pt home Referrals Initiated None needed Whiteboard Updated in Patient Room with Yes name and ext. # of Superannuation Funds Manager Review Status In Process Please Provide Date Initial DC 07/10/24 Assessment Was Performed Next Review Type Continued Stay Review Pre-Anesthesia Assessment Start: 07/03/24 13:51 Freq: Status: Active Protocol: Document 07/03/24 13:51 CAB (Rec: 07/03/24 14:11 CAB [id number]) Pre-Anesthesia Assessment PAC Comment Chart review Patient Information Reviewed Via Chart Review Primary Care Provider Higinio Block Seen Specialist in Last 12 Months Yes Specialist Seen Emergency,General surgeon, Metal Furniture Repairer Comment Nephrology visit 11/21/23 scanned and in surgery folder Primary Language Trinidadian Member Certification Manager Required No Height 158.75 cm Weight 90.265 kg Body Mass Index (BMI) 35.8 Hx Anesthesia Reactions No Anesthesia Review Requested No Treatment Supervisor No Smoking Status Former smoker Pain Present Pain Reported Patient is completely paralyzed or No completely immobile Mental Status Oriented to own ability Is patient on oxygen? No Hx Sleep Apnea No Currently Taking a Beta Harry No Anti-Coagulant Therapy Yes: Eliquis-advised to hold [address] Tomlinson Has a Check Processing Clerk No Cardiac Testing No Hx Pacemaker/ICD No Pacemaker Rep Required? No Cardiac Clearance Received Not Applicable Diabetes Yes HgbA1C 6.1 Date 10/03/23 Patient No Lactating No Received a COVID vaccine? Yes Marital Status Single Patient Discharge Plan Description Return Home Advance Directives? Yes
--- NOTE | 2024-07-10 10:28 | PC.NURSE ---
Day shift: Called MD Kat to request PO pain medication for patient. MD Tomlinson at bedside and discharge orders put in. Called MD Tomlinson to clarify about next Elquis dose - he stated ok to restart Eliquis today, this RN let patient know. Discharge instructions gone over with patient and patient's son. All questions answered, patient stated understanding. PIV removed prior to discharge. All belongings with patient. LIBRA Dejesus escorted patient via wheelchair to [facility] where she plans to sampler pickup her new prescription.
--- NOTE | 2024-07-15 22:03 | PM.EVENT ---
Event Note Date Patient Seen: 07/15/24 Time Patient Seen: 22:04 Event Note (Rapid Response, Code, or fall): Patient not seen but talked on the phone -- Patient called answering service with fever (she states 103) with pain shooting from her left neck down her arm, and feels miserable. No complaints related to the hernia. I directed her to the ER for evaluation of her symptoms.
== END 2024-07-10 10:30 | disposition home or self-care (01) ==
LOC: OR 11:13 → AC 11:14
PROVIDERS: Family Provider Family Medicine; PCP Family Medicine; Referring Provider Surgery; Visit Provider Surgery
PROC: (CPT 49593; principal; 2024-07-09 12:30)
DX: K43.2 Incisional hernia without obstruction or gangrene (principal)
CPT/HCPCS: 49593; 82962; J0330; J0690; J1171; J2405; J2704; J3010; J3490

== ENCOUNTER 2024-07-15 22:27 | Emergency (ER) | payer MEDICARE, SELFPAY ==
[2024-07-09 11:14] VITALS: BMI 35.6
[2024-07-15 22:32] VITALS: BP 154/77; PULSE 108; O2SAT 95
[2024-07-15 22:36] VITALS: BP 154/77; PULSE 102; RESP 20; TEMP 37.3; O2SAT 96; BMI 36.2
[2024-07-15 23:00] VITALS: BP 145/76; PULSE 102; RESP 19; O2SAT 94
--- NOTE | 2024-07-15 23:04 | DI.RAD.S_ITS ---
PROCEDURE: XR CHEST 1V INDICATIONS: post op fever TECHNIQUE: One view of the chest was acquired. COMPARISON: [facility], CR, XR CHEST 1V, 06/07/2023, 14:44. FINDINGS: Surgical changes and devices: Thoracolumbar fixation rods. Lungs and pleura: Lungs are clear. No pleural effusions or pneumothorax. Mediastinum: Mediastinal contours appear normal. Heart size is normal. Bones and chest wall: No suspicious bony lesions. Overlying soft tissues appear unremarkable. IMPRESSION: No acute pulmonary process. Dictated by: Ambika Cary M.D. on 07/15/2024 at 23:23 Approved by: Ambika Cary M.D. on 07/15/2024 at 23:23
[2024-07-15 23:13] LABS: Add Manual Diff / Slide Review NO; Basophils Absolute Auto 100 /uL (0-100); Basophils Percent Auto 0.5 % (0-2); Eosinophils Absolute Auto 100 /uL (0-450); Eosinophils Percent Auto 0.7 % (2-4); Hematocrit 40.4 % (36-46); Hemoglobin 13.4 g/dL (12.0-16.0); Lymphocytes Absolute Auto 800 /uL (1100-4500); Lymphocytes Percent Auto 7.1 % (25-40); Mean Corpuscular HGB Conc 33.2 % (30-36); Mean Corpuscular Hemoglobin 28.6 PG (26-34); Mean Corpuscular Volume 86.3 fL (80-100); Monocytes Absolute Auto 500 /uL (0-900); Neutrophils Absolute Auto 10500 /uL (1500-7000); Neutrophils Percent Auto 87.7 % (50-75); Platelet Count 425 X10^3/uL (150-400); Red Blood Cell Count 4.67 X10^6/uL (4.0-5.2); Red Cell Distribution Width 16.1 % (11.6-14.8)
[2024-07-15 23:18] LABS: Alanine Aminotransferase 35 IU/L (<35); Albumin 4.5 g/dL (3.5-5.0); Albumin Globulin Ratio 1.5 (1.0-2.8); Alkaline Phosphatase 74 U/L (38-126); Aspartate Aminotransferase 35 IU/L (14-36); BUN Creatinine Ratio 13.2 (6-22); Bilirubin Total 0.5 mg/dL (0.2-1.3); Blood Urea Nitrogen 17 mg/dL (7-17); Calcium 9.4 mg/dL (8.4-10.2); Carbon Dioxide 30 mmol/L (22-32); Chloride 96 mmol/L (98-107); Estimated Glomerular Filt Rate 45 mL/min (>60); Globulin 3.1 g/dL (1.7-4.1); Glucose 180 mg/dL (80-110); HEMOLYSIS < 15 (0-50); Lactate (Lactic Acid) 1.3 mmol/L (0.7-2.1); Potassium 2.8 mmol/L (3.4-5.1); Sodium 134 mmol/L (137-145); Total Protein 7.6 g/dL (6.3-8.2)
--- NOTE | 2024-07-15 23:22 | PC.NURSE ---
Phlebotomy at [facility] for 2nd set of blood cultures.
[2024-07-15 23:37] VITALS: O2SAT 89
--- NOTE | 2024-07-15 23:39 | PC.NURSE ---
Pt ambulatory to restroom with cane and one person assist.
[2024-07-15 23:40] VITALS: BP 122/69; PULSE 104; O2SAT 94
[2024-07-15 23:40] LABS: COVID-19 CEPHEID 4-PLEX PCR Negative (Negative); Influenza A - CEPHEID Flu A NEGATIVE (NEGATIVE); Influenza B - CEPHEID Flu B NEGATIVE (NEGATIVE); Respiratory Syncytial Virus Negative (Negative)
--- NOTE | 2024-07-15 23:49 | ED.FEVER ---
HPI - Fever General Chief Complaint: Fever Stated Complaint: fever-headache- won't stop Time Seen by Provider: 07/15/24 23:04 Source: patient and EMS Mode of arrival: EMS History of Present Illness HPI Narrative: Patient 68-year-old female status post ventral incisional hernia repair with mesh, she had surgery on July 09, presenting today with left-sided neck pain. She reports that she has been doing well however she developed fever he had a temperature of 101? with EMS but is afebrile here in pretty severe neck pain. She has had neck pain in the past. She denies any cough or shortness of breath she has no chest pain. She has no abdominal pain nausea or vomiting she is having regular bowel movements she overall feels like she is healing from her recent surgery. She does report that she is on Eliquis. She has had multiple surgeries in his head many DVTs afterwards. Any painful frequent urination she really seems quite uncomfortable her neck pain she was complaining of little headache as well. Related Data Home Medications Medication Instructions Recorded Confirmed furosemide 20 mg tablet (Lasix) 20 mg PO DAILY PRN edema 05/07/24 07/09/24 Previous Rx's Medication Instructions Recorded empagliflozin 10 mg tablet 10 mg PO DAILY #90 tabs 09/13/23 (Jardiance) amlodipine 10 mg tablet (Norvasc) 10 mg PO DAILY #90 tabs 09/25/23 levothyroxine 112 mcg tablet See Rx Instructions .Route 09/25/23 .COMPLEX #90 tabs fenofibrate 160 mg tablet 160 mg PO DAILY for cholesterol 12/28/23 #90 tabs apixaban 5 mg tablet (Eliquis) 5 mg PO BID #180 tabs 04/29/24 Disabled Parking Permit #1 ea 05/07/24 cholestyramine (with sugar) 4 gram 2 g PO TID PRN diarrhea #348.6 05/07/24 oral powder grams oxycodone 5 mg tablet 5 mg PO TID PRN pain #90 tabs 07/08/24 hydrocodone 5 mg-acetaminophen 325 1 tab PO Q8H PRN pain #14 tabs 07/10/24 mg tablet methocarbamol 750 mg tablet 750 mg PO Q8H PRN muscle spasm #14 07/16/24 tabs Allergies Allergy/AdvReac Type Severity Reaction Status Date / Time Sulfa (Sulfonamide Allergy Severe Anaphylaxis Verified 07/15/24 22:43 Antibiotics) acetaminophen Allergy Mild Vomiting Verified 07/15/24 22:43 NSAIDS (Non-Steroidal Allergy Mild GI Upset Verified 07/09/24 11:26 Anti-Inflamma marijuana (cannabis) Allergy Anaphylaxis Verified 07/09/24 11:26 Patient History Medical History Scoliosis HTN (hypertension) Bipolar disorder DVT of leg (deep venous thrombosis) Opiate dependence Encounter for subsequent annual wellness visit (AWV) in Medicare patient Diabetic peripheral neuropathy Type 2 diabetes mellitus with complication, without long-term current use of insulin Hyperlipidemia CKD (chronic kidney disease) stage 3, GFR 30-59 ml/min Narcolepsy (~1999) Depression TIA (transient ischemic attack) (~2017) Peripheral neuropathy (~04/2022) Fractures Chicken pox Vertigo (~1969) Heavy menstrual period (~1970) Abnormal Pap smear of cervix (~1978) Hemorrhoid (~1979) Colon polyps Deep vein thrombosis Cervical cancer Chronic pain Benign essential HTN Hypothyroidism (~2009) Surgical History Hx of ventral hernia repair History of revision of total replacement of left hip joint History of total left hip replacement S/P laparoscopy with lysis of adhesions History of hysterectomy Hx of colonoscopy Hx of cholecystectomy Hx of bilateral cataract extraction History of bowel resection Anesthesia Family History Father Diabetes mellitus History of heart disease Stroke Mother History of heart disease Grandfather History of heart disease Grandmother History of heart disease Grandfather Parkinson's disease Grandmother Alzheimer's disease Social History household members: none Smoking Status: Former smoker alcohol intake: current Smoking Status: Former smoker tobacco type: cigarettes alcohol intake frequency: a few times a week Exam Initial Vital Signs Initial Vital Signs: Vital Signs Pulse Rate 108 H 07/15/24 22:32 Blood Pressure 154/77 H 07/15/24 22:32 Pulse Oximetry 95 07/15/24 22:32 GENERAL: Alert 68-year-old female appears be uncomfortable, although sitting in bed reading a book HEENT: Head atraumatic,EOMI, pupils reactive, face symmetric, moist mucous membranes NECK: No vertebral tenderness step-offs tender paraspinal left side no meningeal signs she was able to look down and reasonable CARDIOVASCULAR: Regular rate and rhythm without murmurs, rubs or gallops. RESPIRATORY: Breath sounds equal bilaterally, no wheezes rales or rhonchi. ABDOMEN: Soft, nontender. Normoactive bowel sounds all 4 quadrants. No guarding or rebound. No distention incision sites are healing. EXTREMITIES: Normal range of motion, no clubbing. Slight bilateral lower extremity edema no significant calf pain. Neurovascularly intact NEUROLOGICAL: Alert and oriented x4.Normal gait and speech. Cranial nerves II through XII grossly intact. SKIN: Warm, dry, no laceration, no petechiae, no rashes or lesions. Course Orders Ordered: ED Orders 07/15/24 22:44 CBC Auto Diff [Complete Blood Count AUTO DIFF] Stat CMP [Comprehensive Metabolic Panel] Stat Lactate (Lactic Acid) Stat 07/15/24 22:53 Covid-19 + FLU A/B + RSV - PCR Stat 07/15/24 23:04 Chest [XR chest 1V] Stat 07/15/24 23:27 Blood Culture Stat 07/16/24 01:24 CT abdomen pelvis w con Stat CT angio chest PE protocol Stat Discontinued Medications Hydromorphone HCl (Hydromorphone 0.5 Mg Inj) 0.5 mg IV NOW ONE Stop: 07/16/24 00:00 Last Admin: 07/16/24 00:08 Dose: Not Given Documented By: MELISA Hydromorphone HCl (Hydromorphone 1 Mg Inj) 1 mg IV NOW ONE Stop: 07/16/24 00:08 Last Admin: 07/16/24 00:09 Dose: 1 mg Documented By: ADILENE Hydromorphone HCl (Hydromorphone 1 Mg Inj) 1 mg IV NOW ONE Stop: 07/16/24 02:05 Last Admin: 07/16/24 02:13 Dose: 1 mg Documented By: ADILENE Acetaminophen (Ofirmev) 1,000 mg in 100 mls @ 400 mls/hr IV NOW ONE Stop: 07/16/24 00:13 Last Infusion: 07/16/24 00:25 Dose: Infused Documented By: Admin: 07/16/24 00:05 Dose: 400 mls/hr Documented By: ADILENE Sodium Chloride (Normal Saline 0.9%) 1,000 mls @ 1,000 mls/hr IV BOLUS ONE Stop: 07/16/24 01:09 Last Infusion: 07/16/24 01:16 Dose: Infused Documented By: Admin: 07/16/24 00:16 Dose: 1,000 mls/hr Documented By: ADILENE POTASSIUM CHLORIDE IN WATER (Potassium Cl 10 Meq/100 Ml Danyelle) 10 meq in 100 mls @ 100 mls/hr IV Q1H OZZY Stop: 07/16/24 02:14 Last Infusion: 07/16/24 02:16 Dose: Infused Documented By: Admin: 07/16/24 01:17 Dose: 100 mls/hr Documented By: Infusion: 07/16/24 01:17 Dose: Infused Documented By: Admin: 07/16/24 00:21 Dose: 100 mls/hr Documented By: ADILENE Ondansetron HCl (Ondansetron 4 Mg/2 Ml Inj) 4 mg IV NOW ONE Stop: 07/16/24 00:00 Last Admin: 07/16/24 00:05 Dose: 4 mg Documented By: ADILENE Potassium Chloride (Potassium Chloride 20 Meq Tab) 40 meq PO NOW ONE Stop: 07/16/24 04:05 Last Admin: 07/16/24 06:03 Dose: 40 meq Documented By: ADILENE Vital Signs Vital signs: Vital Signs - 8 hr 07/15/24 23:00 07/15/24 23:00 07/15/24 23:37 Pulse Rate 102 H Respiratory Rate 19 Blood Pressure 145/76 H Pulse Oximetry 94 89 L Oxygen Delivery Method Room Air Oxygen Flow Rate 07/15/24 23:40 07/15/24 23:40 07/16/24 00:00 Pulse Rate 104 H 96 H Respiratory Rate Blood Pressure 122/69 Pulse Oximetry 94 90 L Oxygen Delivery Method Room Air Oxygen Flow Rate 07/16/24 00:00 07/16/24 00:30 07/16/24 00:30 Pulse Rate 92 H Respiratory Rate Blood Pressure 120/62 122/63 Pulse Oximetry 95 Oxygen Delivery Method Room Air Oxygen Flow Rate 07/16/24 01:00 07/16/24 01:00 07/16/24 01:30 Pulse Rate 87 80 Respiratory Rate Blood Pressure 116/58 L Pulse Oximetry 95 94 Oxygen Delivery Method Oxygen Flow Rate 07/16/24 01:30 07/16/24 02:02 07/16/24 02:03 Pulse Rate 83 Respiratory Rate 18 Blood Pressure 120/59 L Pulse Oximetry 93 93 Oxygen Delivery Method Nasal Cannula Oxygen Flow Rate 2 07/16/24 02:03 07/16/24 02:30 07/16/24 02:31 Pulse Rate 84 83 Respiratory Rate 18 Blood Pressure 123/65 Pulse Oximetry 93 95 Oxygen Delivery Method Room Air Oxygen Flow Rate 07/16/24 02:31 07/16/24 03:00 07/16/24 03:00 Pulse Rate 81 Respiratory Rate 20 Blood Pressure 116/57 L 116/63 Pulse Oximetry 93 Oxygen Delivery Method Room Air Oxygen Flow Rate 07/16/24 03:30 07/16/24 03:30 07/16/24 04:00 Pulse Rate 80 75 Respiratory Rate 18 16 Blood Pressure 100/61 Pulse Oximetry 92 91 Oxygen Delivery Method Room Air Room Air Oxygen Flow Rate 07/16/24 04:00 Pulse Rate Respiratory Rate Blood Pressure 118/55 L Pulse Oximetry Oxygen Delivery Method Oxygen Flow Rate MDM - Fever Lab Data 07/15/24 22:44 07/15/24 22:44 Labs: Lab Results 07/15/24 07/15/24 Range/Units 22:44 22:53 WBC 12.0 H (4.5-11.0) X10^3/uL RBC 4.67 (4.0-5.2) X10^6/uL Hgb 13.4 (12.0-16.0) g/dL Hct 40.4 (36-46) % MCV 86.3 (80-100) fL MCH 28.6 (26-34) PG MCHC 33.2 (30-36) % RDW 16.1 H (11.6-14.8) % Plt Count 425 H (150-400) X10^3/uL Neut % (Auto) 87.7 H (50-75) % Lymph % (Auto) 7.1 L (25-40) % [place] % (Auto) 4.0 (3-14) % Eos % (Auto) 0.7 L (2-4) % Baso % (Auto) 0.5 (0-2) % Neut # (Auto) 77394 H (2126-1336) /uL Lymph # (Auto) 800 L (0946-7007) /uL [place] # (Auto) 500 (0-900) /uL Eos # (Auto) 100 (0-450) /uL Baso # (Auto) 100 (0-100) /uL Sodium 134 L (137-145) mmol/L Potassium 2.8 L (3.4-5.1) mmol/L Chloride 96 L (98-107) mmol/L Carbon Dioxide 30 (22-32) mmol/L BUN 17 (7-17) mg/dL Creatinine 1.29 H (0.52-1.04) mg/dL Estimated GFR 45 L (>60) mL/min BUN/Creatinine Ratio 13.2 (6-22) Glucose 180 H (80-110) mg/dL Lactate 1.3 (0.7-2.1) mmol/L Calcium 9.4 (8.4-10.2) mg/dL Total Bilirubin 0.5 (0.2-1.3) mg/dL AST 35 (14-36) IU/L ALT 35 H (<35) IU/L Alkaline Phosphatase 74 (38-126) U/L Total Protein 7.6 (6.3-8.2) g/dL Albumin 4.5 (3.5-5.0) g/dL Globulin 3.1 (1.7-4.1) g/dL Albumin/Globulin Ratio 1.5 (1.0-2.8) SARS-CoV-2 (PCR) Negative (Negative) Influenza A (RT-PCR) Flu a negative (NEGATIVE) Influenza B (RT-PCR) Flu b negative (NEGATIVE) RSV (PCR) Negative (Negative) Urine Dip Bedside Urine Glucose 1000 mg/dl Bedside Urine Bilirubin - Negative Bedside Urine Ketone - Negative Urine Specific [place] 1.010 Bedside Urine Occult Blood - Negative Bedside Urine pH 6.0 Bedside Urine Protein - Negative Bedside Urine Urobilinogen - Negative Bedside Urine Nitrite - Negative Bedside Urine Leukocytes - Negative Esterase Imaging Data Chest x-ray: Radiologist's Impression: PROCEDURE: XR CHEST 1V INDICATIONS: post op fever TECHNIQUE: One view of the chest was acquired. COMPARISON: [facility], CR, XR CHEST 1V, 06/07/2023, 14:44. FINDINGS: Surgical changes and devices: Thoracolumbar fixation rods. Lungs and pleura: Lungs are clear. No pleural effusions or pneumothorax. Mediastinum: Mediastinal contours appear normal. Heart size is normal. Bones and chest wall: No suspicious bony lesions. Overlying soft tissues appear unremarkable. IMPRESSION: No acute pulmonary process. Dictated by: Ambika Cary M.D. on 07/15/2024 at 23:23 Approved by: Ambika Cary M.D. on 07/15/2024 at 23:23 CT scan - chest: Radiologist's Impression: No pulmonary embolism aortic dissection or aneurysm CT scan - abdomen/pelvis: Radiologist's Impression: Fluid collection subcutaneous soft tissues Benadryl abdomen measuring 8.8 x 2.5 cm containing gas fluid most likely postoperative seroma MDM Narrative Medical decision making narrative: MDM CC: Neck pain fever Complicating co-morbidities: Recent ventral hernia repair Corroborating data: [ ] Data collected from: [ ] Medical records reviewed: Surgery records Differential considered: Postoperative infection pulmonary embolism meningitis Exam documented above, pertinent findings include: Reproducible neck pain only on the left does not have meningeal signs abdomen is really soft nontender incision sites do not show evidence of infection he does have some bilateral lower extremity edema but no significant swelling or pain Lab Test results independently reviewed as above. Pertinent findings: WBC 12.0 hemoglobin 13.4 hematocrit 40.4 platelets 425 Sodium 134 potassium 2.8 chloride 96 bicarb 30 BUN 17 creatinine 1.29 previously 0.9 Lactate 1.3 Bilirubin 0.5 AST 35 ALT 35 alk-phos 74 Urinalysis negative Respiratory panel negative Imaging studies independently reviewed: Chest x-ray no acute cardiopulmonary process CT chest no pulmonary embolism Abdominal CT does show probable postoperative seroma Consultations: [ ] Treatments: Dilaudid IV fluids potassium Re-evaluations: Patient's pain is better after Dilaudid and Tylenol. Initially she reported Tylenol makes her nauseous but was was agreeable to try IV Tylenol which he tolerated well Discussion: 68-year-old female presenting today with significant left-sided neck pain. She reports fever EMS reported a fever 101 however she is afebrile here. She is mild leukocytosis no elevated lactate. Never hypotensive she did have a heart rate as high as 104. Oxygen level does dip at times down to 89 but she denies any significant shortness of breath she has no wheezing or evidence of respiratory distress. Urinalysis negative viral panel negative. Pain in her neck is going down into her arm she really does not have any sort of nuchal rigidity or meningeal signs it is definitely very reproducible and feels like a muscle spasm. She also got significant relief with Dilaudid and acetaminophen With history of multiple blood clots and postoperative CT angio ruled out pulmonary embolism CT of the abdomen shows a postoperative seroma with gas contain meant which I think is secondary to recent operation. Her abdomen is really soft and nontender all. Not sure about patient's fever she is mild leukocytosis. She was most likely a postoperative seroma which I think is unrelated today. She has not complaining of abdominal pain in abdomen is soft. She was found to be hypokalemic with a potassium 2.8 he was given a K rider of 20 mEq and p.o. potassium. She also mildly dehydrated with elevated creatinine of 1.2 she was given a L of fluids At this time no need for admission see any sort of surgery complication of recommend that she follow up Discharge Plan Departure Patient Disposition: Home Clinical Impression: Neck muscle spasm, Acute hypokalemia Instructions: DI for Muscle Spasm Activity Restrictions/Additional Instructions: *You have been diagnosed with neck spasm *What to do: At this time no need for antibiotics not sure where your fever is coming from I suspect maybe a viral illness. *Continue to take medications as directed Methocarbamol 750 mg every 8 hours if needed for muscle spasm (do not combine with your other muscle relaxer) *Follow up with your primary care provider in 2-3 days or call [phone] *Return to ER if you should have increasing abdominal pain increasing shortness of breath persistent fever or any new, worsening or concerning symptoms Prescriptions: New methocarbamol 750 mg tablet 750 mg PO Q8H PRN (Reason: muscle spasm) Qty: 14 0RF No Action fenofibrate 160 mg tablet 160 mg PO DAILY Qty: 90 3RF Eliquis 5 mg tablet 5 mg PO BID Qty: 180 3RF Rx Instructions: stop xarelto oxycodone 5 mg tablet 5 mg PO TID PRN (Reason: pain) Qty: 90 0RF amlodipine [Norvasc] 10 mg tablet 10 mg PO DAILY Qty: 90 3RF levothyroxine 112 mcg tablet See Rx Instructions .ROUTE .COMPLEX Qty: 90 3RF Dose Instruction: TAKE 1 TABLET BY MOUTH DAILY Rx Instructions: TAKE 1 TABLET BY MOUTH DAILY furosemide [Lasix] 20 mg tablet 20 mg PO DAILY PRN (Reason: edema) (DME) Disabled Parking Permit See Rx Instructions .ROUTE .MEDSUPPLY Qty: 1 0RF Rx Instructions: I find this patient to be medically disabled and qualified for Disabled Parking as indicated on the accompanying Disabled Parking Application for Individuals. cholestyramine (with sugar) 4 gram powder 2 g PO TID PRN (Reason: diarrhea) Qty: 348.6 4RF Jardiance 10 mg tablet 10 mg PO DAILY Qty: 90 3RF hydrocodone-acetaminophen 5-325 mg tablet 1 tab PO Q8H PRN (Reason: pain) Qty: 14 0RF Referrals: Higinio Block DO [Primary Care Provider] - Stand Alone Forms: Patient Portal/API/Survey
[2024-07-16] VITALS (11 sets, daily range): BP systolic 100–123; BP diastolic 55–65; PULSE 75–96; RESP 16–20; O2SAT 90–95
[2024-07-16] MEDS: ONDANSETRON 4 MG/2 ML INJ IV (00:05)
[2024-07-16] MEDS: ACETAMINOPHEN IV 1,000 MG/100 ML VIAL 400 MG IV (00:05)
[2024-07-16] MEDS: HYDROMORPHONE 1 MG INJ IV ×2 (00:09→02:13)
[2024-07-16] MEDS: SODIUM CHLORIDE 0.9% 1,000 ML 1000 ML IV (00:16)
[2024-07-16] MEDS: POTASSIUM CHLORIDE IN WATER 10 MEQ/100 ML PIGGYBACK 100 MEQ IV ×2 (00:21→01:17)
--- NOTE | 2024-07-16 00:40 | PC.NURSE ---
Pt noted to have multiple episodes of pulse ox dropping to low 80's for short periods of time and then climbing back into 90's. Pt awake and alert reading book without increased WOB or c/o SOB. O2@2lnc applied at this time.
--- NOTE | 2024-07-16 01:24 | DI.CT.S_ITS ---
PROCEDURE: CT ABDOMEN PELVIS W CON INDICATIONS: fever post op TECHNIQUE: After the administration of intravenous contrast, axial sections acquired from the lung bases to the pubic symphysis. Coronal and sagittal reformats were performed. For radiation dose reduction, the following was used: automated exposure control, adjustment of mA and/or kV according to patient size. COMPARISON: [facility], CT, CT ABDOMEN PELVIS W CON, 04/26/2024, 12:00. FINDINGS: Image quality: Diagnostic. Lower Chest: Separately dictated. ABDOMEN: Liver: No solid mass. Subcentimeter hypodensities, likely cysts but too small to accurately characterize. Gallbladder: Surgically absent. Biliary ducts: No biliary dilation. Pancreas: No ductal dilation. Spleen: Size is within normal limits. Adrenal Glands: No adrenal nodules. Kidneys and Ureters: No hydronephrosis. No solid mass. No complex renal cystic lesion which requires follow up. Nonobstructing 2 mm left cortical calcification inferiorly. Stomach and Bowel: Normal colonic caliber, without significant wall thickening. Sutures are noted within small bowel. Moderate stool burden within the colon. Peritoneum: No abnormal intraperitoneal fluid. No free air. Ventral Wall: Ventral abdominal wall fluid collection measuring 8.8 x 2.5 cm containing fluid and small foci of gas. No hernia is seen.. Abdominal Nodes: No retroperitoneal or mesenteric adenopathy by size criteria. Vessels: Aorta and inferior vena cava are normal in size. Atherosclerotic vascular calcifications. PELVIS: Pelvic Organs: Unremarkable. Bladder: No bladder wall thickening, accounting for underdistention. Pelvic Nodes: No enlarged lymph nodes. Miscellaneous: No inguinal hernias are seen. Bones: No aggressive osseous abnormality. Scoliotic curvature status post posterior fixation. Lucency around the right sacral screw. Decreased osseous mineralization. Degenerative changes of the spine. Left hip arthroplasty. IMPRESSION: 1. No acute findings within the abdomen or pelvis. 2. Ventral abdominal wall fluid collection measuring 8.8 x 2.5 cm containing fluid and small foci of gas, likely a postoperative seroma. 3. Scoliotic curvature of the spine status post fixation. Lucency around the right sacral screw, may represent loosening. 4. Please see above for additional findings. Findings are concordant with preliminary interpretation provided by [facility]. Dictated by: Davin Espinosa M.D. on 07/16/2024 at 9:26 Approved by: Davin Espinosa M.D. on 07/16/2024 at 9:34
--- NOTE | 2024-07-16 01:24 | DI.CT.S_ITS ---
PROCEDURE: CT ANGIO CHEST PE PROTOCOL INDICATIONS: hypoxia post op hx of DVT TECHNIQUE: After the administration of intravenous contrast, 2 mm thick sections acquired from the pulmonary apices to the posterior costophrenic angles. 3-dimensional maximum intensity projection (MIP) coronal and sagittal reformats were then acquired through the thorax. For radiation dose reduction, the following was used: automated exposure control, adjustment of mA and/or kV according to patient size. COMPARISON: None. FINDINGS: Image quality: Diagnostic. Pulmonary arteries: Pulmonary arteries are normal in size, and demonstrate no intraluminal filling defects to suggest central pulmonary embolism. Lower Neck: No enlarged lymph nodes. Thyroid: Not well seen, atrophic or absent. Axillae: No enlarged lymph nodes. Chest Wall: Unremarkable. Bones: Degenerative changes of the spine with dextroscoliotic curvature and thoracic fixation.. Lungs and Pleura: No pneumothorax or pleural effusions. Bibasilar atelectasis. No consolidation or suspicious nodules. Heart: Heart size is normal. Moderate to severe coronary artery calcifications. No pericardial effusion. Thoracic Vessels: No aortic aneurysm. Mediastinum and Kat: No enlarged lymph nodes. Esophagus: No wall thickening. No hiatal hernia. Upper Abdomen: Separately dictated. IMPRESSION: No pulmonary embolus. No acute cardiopulmonary process. Findings are concordant with preliminary interpretation provided by [facility]. Dictated by: Davin Espinosa M.D. on 07/16/2024 at 9:23 Approved by: Davin Espinosa M.D. on 07/16/2024 at 9:26
--- NOTE | 2024-07-16 01:41 | PC.NURSE ---
Pt taken to imaging via ED stretcher with tech
--- NOTE | 2024-07-16 02:58 | PC.NURSE ---
Pt ambulatory to restroom with cane and one person assist. Pt with increased WOB and resp rate during ambulation. Pulse ox 91% RA upon return to ED stretcher. Dr. Mae made aware.
[2024-07-16] MEDS: POTASSIUM CHLORIDE 20 MEQ TAB 40 MEQ PO (06:03)
== END 2024-07-16 06:00 | disposition home or self-care (01) ==
PROVIDERS: Emergency Provider Emergency Medicine; Family Provider Family Medicine; PCP Family Medicine
DX: M62.838 Other muscle spasm (principal); M54.2 Cervicalgia; E87.6 Hypokalemia; R51.9 Headache, unspecified; R50.9 Fever, unspecified; Z98.890 Other specified postprocedural states
CPT/HCPCS: 0241U; 36415; 71045; 71275; 74177; 80053; 81003; 83605; 85025; 87040; 96365; 96366; 96367; 96375; 96376; 99284; J0134; J1171; J2405; Q9967

== ENCOUNTER → 2024-07-19 10:50 | Outpatient (CLI) | payer MEDICARE, SELFPAY ==
[2024-07-09 11:14] VITALS: BMI 35.6
--- NOTE | 2024-07-19 10:51 | DI.RAD.S_ITS ---
PROCEDURE: XR CERVICAL SPINE 4V OR 5V INDICATIONS: Left sided pain, numbness and tingling down Left arm TECHNIQUE: 5 views of the cervical spine acquired. COMPARISON: None. FINDINGS: Bones: Disc space narrowing in the lower cervical spine associated with grade 1 anterior spondylolisthesis at C4-5. Normal craniovertebral relationships. Oblique images show foraminal stenosis in the lower cervical spine as well Soft tissues: No prevertebral soft tissue swelling. IMPRESSION: Degenerative disc disease and arthropathy results in bilateral foraminal stenosis in the lower cervical spine as well as grade 1 anterior listhesis at C4-5 Approved by: Farhan Jacome M.D. on 07/19/2024 at 19:02
== END ==
PROVIDERS: Family Provider Family Medicine; PCP Family Medicine; Referring Provider Family Medicine; Visit Provider Family Medicine
DX: M47.812 Spondylosis without myelopathy or radiculopathy, cervical region (principal); M50.30 Other cervical disc degeneration, unspecified cervical region; M48.02 Spinal stenosis, cervical region; M43.16 Spondylolisthesis, lumbar region; M54.10 Radiculopathy, site unspecified; M62.838 Other muscle spasm
CPT/HCPCS: 72050

== ENCOUNTER → 2024-07-23 12:47 | Outpatient (CLI) | payer MEDICARE, SELFPAY ==
[2024-07-09 11:14] VITALS: BMI 35.6
--- NOTE | 2024-07-23 12:48 | DI.MRI.S_ITS ---
PROCEDURE: MR CERVICAL SPINE WO CON INDICATIONS: neck pain with radiculopathy TECHNIQUE: Noncontrast sagittal T1 spin echo and T2 fast spin echo, sagittal STIR, foraminal oblique sagittal T2 fast spin echo, and axial gradient echo or T2 fast spin echo through the cervical spine. COMPARISON: [facility], CT, CT ANGIO CHEST PE PROTOCOL, 07/16/2024, 1:32. [facility], CR, XR CERVICAL SPINE 4V OR 5V, 07/19/2024, 10:54. FINDINGS: Image quality: Poor; suboptimal positioning and lack of an optimized neck coil limits the signal to noise ratio and subsequent evaluation Alignment and Curvature: 2 mm retrolisthesis of C3 on C4, grade 1 anterolisthesis of L4 on L5. Otherwise, preservation of cervical lordosis. Bone Marrow: Marrow demonstrates normal overall signal. Discs: Multilevel disc desiccation and mild bulging. Moderate disc height loss at C5-C6 and C6-C7. Spinal Cord: Visualized spinal cord has normal size and signal. No cerebellar tonsillar herniation. Likely 0.9 cm arachnoid granulation along the left side of the occipital bone (4/6; 5/11). Paraspinous Soft Tissues: No prevertebral soft tissue edema. Mild diffuse atrophy of the cervical paraspinal and dorsal thoracic musculature. Partial opacification of the right mastoid air cells (4/4). Susceptibility artifact and fibrosis at the dorsal thoracic soft tissues, likely secondary to prior surgical intervention (5/9). C2-C3: Normal appearance. C3-C4: Mild disc bulge and facet/uncinate arthropathy result in mild central canal stenosis. Mild right foraminal stenosis. Moderate left foraminal stenosis. C4-C5: Mild disc bulge and facet/uncinate arthropathy result in moderate central canal stenosis. Mild right foraminal stenosis. Severe left foraminal stenosis. C5-C6: No significant central canal stenosis. Moderate right foraminal stenosis. Severe left foraminal stenosis. C6-C7: No significant central canal stenosis. No significant right foraminal stenosis. Severe left foraminal stenosis. C7-T1: No significant central canal stenosis. No significant right foraminal stenosis. Mild left foraminal stenosis. IMPRESSION: 1. Limited examination due to technical factors. 2. No acute MR abnormality of the cervical spine. 3. Moderate C4-C5 central canal stenosis. 4. Multilevel foraminal stenoses, severe at the left C4-C5, C5-C6, and C6-C7 levels. Dictated by: Elías Reyes M.D. on 07/30/2024 at 13:23 Approved by: Elías Reyes M.D. on 07/30/2024 at 13:36
== END ==
LOC: MRI 12:48
PROVIDERS: Family Provider Family Medicine; PCP Family Medicine; Referring Provider Family Medicine; Visit Provider Family Medicine
DX: M48.02 Spinal stenosis, cervical region (principal); M54.2 Cervicalgia; M54.10 Radiculopathy, site unspecified
CPT/HCPCS: 72141

== ENCOUNTER → 2024-08-05 07:48 | Outpatient (CLI) | payer MEDICARE, SELFPAY ==
[2024-07-09 11:14] VITALS: BMI 35.6
[2024-08-05 09:17] LABS: BUN Creatinine Ratio 28.2 (6-22); Blood Urea Nitrogen 33 mg/dL (7-17); Calcium 10.1 mg/dL (8.4-10.2); Carbon Dioxide 25 mmol/L (22-32); Chloride 98 mmol/L (98-107); Estimated Glomerular Filt Rate 51 mL/min (>60); Glucose 193 mg/dL (80-110); HEMOLYSIS < 15 (0-50); Potassium 3.9 mmol/L (3.4-5.1); Sodium 136 mmol/L (137-145)
== END ==
PROVIDERS: Family Provider Family Medicine; PCP Family Medicine; Referring Provider Family Medicine; Visit Provider Family Medicine
DX: E87.6 Hypokalemia (principal); M54.2 Cervicalgia; M54.10 Radiculopathy, site unspecified
CPT/HCPCS: 36415; 80048

== ENCOUNTER → 2024-09-14 12:47 | Outpatient (CLI) | payer MEDICARE, SELFPAY ==
[2024-07-09 11:14] VITALS: BMI 35.6
--- NOTE | 2024-09-14 12:51 | DI.CT.S_ITS ---
PROCEDURE: CT CERVICAL SPINE WO CON INDICATIONS: CERVICAL SPINAL STENOSIS TECHNIQUE: Noncontrast 3 mm thick sections acquired from the skull base to the T4 level. Sagittal and coronal reformats were then constructed. For radiation dose reduction, the following was used: automated exposure control, adjustment of mA and/or kV according to patient size. COMPARISON: [facility], MR, MR CERVICAL SPINE WO CON, 07/23/2024, 12:59. [facility], CR, XR CERVICAL SPINE 4V OR 5V, 07/19/2024, 10:54. FINDINGS: Image quality: Excellent. Bones: No fractures or dislocations. Visualized superior ribs are intact. Multilevel predominantly left-sided facet arthropathy, most significant at the left C4-C5 facet. Reference sagittal image 37 of series 5. Moderate canal stenosis at C4-C5 with disc bulge and facet and ligament hypertrophy present. Significant left bony foraminal narrowing at C3-C4 C4-C5 and C6-C7. It is severe at C6-C7. Multilevel right bony foraminal narrowing, at C3-C4, C5-C6, and C6-C7. It is severe at C6-C7. There are uncovertebral joint osteophytes at these levels. Note made of diffuse osteopenia and minimal compressions of T2, T3, and T4. There has been previous upper thoracic surgery. There previously were pedicle screws present at multiple upper thoracic levels. Soft tissues: Prevertebral soft tissues are normal in thickness. No paravertebral hematomas. No apical pneumothoraces. IMPRESSION: 1. Cervical spondylosis as described above. Multilevel left-sided facet arthropathy. Multilevel uncovertebral joint osteophytes. Multilevel foraminal narrowing. Moderate canal stenosis at C4-C5. 2. Osteopenia with old thoracic compressions. Dictated by: Pino Horn M.D. on 09/15/2024 at 6:27 Approved by: Pino Horn M.D. on 09/15/2024 at 6:35
== END ==
LOC: CT 12:49
PROVIDERS: Family Provider Family Medicine; PCP Family Medicine; Referring Provider Neurological Surgery; Visit Provider Neurological Surgery
DX: M48.02 Spinal stenosis, cervical region (principal); M47.812 Spondylosis without myelopathy or radiculopathy, cervical region; M85.88 Other specified disorders of bone density and structure, other site
CPT/HCPCS: 72125

== ENCOUNTER → 2024-09-23 13:43 | Outpatient (CLI) | payer MEDICARE, SELFPAY ==
[2024-07-09 11:14] VITALS: BMI 35.6
--- NOTE | 2024-09-23 13:45 | DI.MRI.S_ITS ---
PROCEDURE: MR CERVICAL SPINE WO CON INDICATIONS: CERVICAL STENOSIS/MYELOPATHY/RADICULOPATHY TECHNIQUE: Noncontrast sagittal T1 spin echo and T2 fast spin echo, sagittal STIR, foraminal oblique sagittal T2 fast spin echo, and axial gradient echo or T2 fast spin echo through the cervical spine. COMPARISON: [facility], MR, MR CERVICAL SPINE WO CON, 07/23/2024, 12:59. FINDINGS: Image quality: Excellent. Alignment and Curvature: There is normal bony alignment. Bone Marrow: Marrow demonstrates normal overall signal. Spinal Cord: Visualized spinal cord has normal size and signal. No cerebellar tonsillar herniation. Paraspinous Soft Tissues: No paravertebral masses. Prevertebral soft tissues are normal in thickness. C2-C3: Mild disc bulge and ligamentum flavum laxity results in mild central stenosis. No foraminal stenosis. C3-C4: Posterior disc osteophyte complex with ligamentum flavum buckling results in moderate central stenosis. Arthropathy. Moderate bilateral foraminal stenosis. C4-C5: Posterior disc osteophyte complex, arthropathy and ligamentum flavum buckling combined result in moderate central stenosis. Moderate bilateral foraminal stenosis. C5-C6: Posterior disc osteophyte complex and arthropathy. Moderate central stenosis. Moderate bilateral foraminal stenosis worse on the left. C6-C7: Posterior disc osteophyte complex. Mild central stenosis. Arthropathy. Severe right and left foraminal stenosis C7-T1: No central stenosis. No foraminal stenosis. IMPRESSION: Multilevel degenerative disc disease and arthropathy results in varying degrees of central and foraminal stenosis including moderate central stenosis C3-4, C4-5, and C5-6 Approved by: Farhan Jacome M.D. on 09/23/2024 at 16:14
== END ==
PROVIDERS: Family Provider Family Medicine; PCP Family Medicine; Referring Provider Orthopaedic Surgery Orthopaedic Surgery of the Spine; Visit Provider Orthopaedic Surgery Orthopaedic Surgery of the Spine
DX: M50.11 Cervical disc disorder with radiculopathy, high cervical region (principal); M47.12 Other spondylosis with myelopathy, cervical region; M50.01 Cervical disc disorder with myelopathy, high cervical region; M47.22 Other spondylosis with radiculopathy, cervical region; M48.02 Spinal stenosis, cervical region; M43.12 Spondylolisthesis, cervical region
CPT/HCPCS: 72141

== ENCOUNTER → 2024-09-24 09:22 | Outpatient (CLI) | payer MEDICARE, SELFPAY ==
[2024-07-09 11:14] VITALS: BMI 35.6
[2024-09-24 10:45] LABS: Hemoglobin A1C% w Est Avg Glu 6.5 % (4.0-6.0)
[2024-09-24 10:55] LABS: BUN Creatinine Ratio 23.5 (6-22); Blood Urea Nitrogen 24 mg/dL (7-17); Calcium 9.8 mg/dL (8.4-10.2); Carbon Dioxide 23 mmol/L (22-32); Chloride 104 mmol/L (98-107); Cholesterol 186 mg/dL (140-199); Estimated Glomerular Filt Rate 60 mL/min (>60); Glucose 149 mg/dL (80-110); HDL Cholesterol 71 mg/dL (40-60); HEMOLYSIS < 15 (0-50); LDL Cholesterol Calculated 84 mg/dL (<100); Potassium 4.3 mmol/L (3.4-5.1); Sodium 138 mmol/L (137-145); Triglycerides 155 mg/dL (35-150)
[2024-09-24 11:21] LABS: TSH w/ Reflex to FT4 5.15 uIU/mL (0.47-4.68)
[2024-09-24 11:42] LABS: Hep C Virus Ab w/Reflex Quant NEGATIVE s/c (NEGATIVE)
[2024-09-24 12:09] LABS: Free T4, Direct Thyroxine 1.55 ng/dL (0.78-2.19)
== END ==
PROVIDERS: Family Provider Family Medicine; PCP Family Medicine; Referring Provider Family Medicine; Visit Provider Family Medicine
DX: Z00.00 Encounter for general adult medical examination without abnormal findings (principal); E11.8 Type 2 diabetes mellitus with unspecified complications; N18.30 Chronic kidney disease, stage 3 unspecified; E03.9 Hypothyroidism, unspecified; E78.5 Hyperlipidemia, unspecified; M54.2 Cervicalgia; G89.29 Other chronic pain; I12.9 Hypertensive chronic kidney disease with stage 1 through stage 4 chronic kidney disease, or unspecified chronic kidney disease
CPT/HCPCS: 36415; 80048; 80061; 83036; 84439; 84443; 86803

== ENCOUNTER 2024-09-29 15:46 | Emergency (ER) | payer MEDICARE, SELFPAY ==
[2024-07-09 11:14] VITALS: BMI 35.6
[2024-09-29 15:53] VITALS: BP 136/69; PULSE 97; RESP 17; TEMP 36.4; O2SAT 97; BMI 35.6
--- NOTE | 2024-09-29 15:56 | DI.RAD.S_ITS ---
PROCEDURE: XR FOOT RT MIN 3V INDICATIONS: pain without injury TECHNIQUE: 3 views of the foot were acquired. COMPARISON: None. FINDINGS: Bones: No fractures or dislocations. No suspicious bony lesions. There is mild hallux valgus with mild associated degenerative changes. Dorsal midfoot degenerative changes are present as well as a large calcaneal enthesophyte. Soft tissues: No tibiotalar joint effusion. Achilles tendon appears normal. IMPRESSION: Mild hallux valgus without acute osseous abnormality. Dictated by: Deborha Castanon M.D. on 09/29/2024 at 15:32 Approved by: Deborah Castanon M.D. on 09/29/2024 at 15:34
--- NOTE | 2024-09-29 16:45 | ED.EXTPRO ---
HPI - Extremity Problem <Kailey Cifuentes PA-C - Last Filed: 09/29/24 19:03> General Chief complaint: Extremity Problem,Nontraumatic Stated complaint: foot injry x 3wks Time Seen by Provider: 09/29/24 16:45 Source: patient Mode of arrival: Ambulatory History of Present Illness HPI Narrative: Ms. Chow is a very pleasant 68-year-old female with a past medical history of osteoarthritis on pain management, type 2 diabetes, CKD, DVT on Eliquis, hypertension, hypothyroidism who presents to the emergency department for nontraumatic right foot pain x2 or 3 weeks. Patient states she initially noticed some bruising and swelling of the dorsal aspect of her right foot however the bruising has gone away but she is continued to have pain on the top of her right foot. She notes that she does have swelling of both legs which she takes Lasix for however swelling of the right foot and ankle is worse than normal. She decided to come to the emergency department today because she almost fall due to the pain with weight-bearing on the right foot. She ambulates with a cane. She denies recent surgery or prolonged immobilization, however she is hoping to have cervical spine surgery in the near future. She currently takes 5 mg of Eliquis twice daily and her last DVT was in her left leg a year and a half ago she denies numbness tingling or weakness of the foot, calf pain or swelling, chest pain or shortness of breath, fevers or any other concern. She takes 10 mg of oxycodone 3 times daily however this is no longer helping with this foot pain. Related Data Home Medications Medication Instructions Recorded Confirmed furosemide 20 mg tablet (Lasix) 20 mg PO DAILY PRN edema 05/07/24 09/24/24 Previous Rx's Medication Instructions Recorded fenofibrate 160 mg tablet 160 mg PO DAILY for cholesterol 12/28/23 #90 tabs apixaban 5 mg tablet (Eliquis) 5 mg PO BID #180 tabs 04/29/24 Disabled Parking Permit #1 ea 05/07/24 cholestyramine (with sugar) 4 gram 2 g PO TID PRN diarrhea #348.6 05/07/24 oral powder grams methocarbamol 750 mg tablet 750 mg PO Q8H PRN muscle spasm #30 07/19/24 tabs gabapentin 300 mg capsule 300 mg PO TID PRN nerve pain #60 07/22/24 caps potassium chloride 20 mEq 20 meq PO DAILY #30 tabs 07/22/24 tablet,extended release(part/cryst) empagliflozin 10 mg tablet 10 mg PO DAILY #90 tabs 09/05/24 (Jardiance) amlodipine 10 mg tablet (Norvasc) 10 mg PO DAILY #90 tabs 09/20/24 levothyroxine 112 mcg tablet See Rx Instructions .Route 09/23/24 .COMPLEX #90 tabs oxycodone 10 mg tablet 10 mg PO Q8H PRN pain #90 tabs 09/24/24 oxycodone 10 mg tablet 10 mg PO TID PRN pain #90 tabs 09/24/24 oxycodone 10 mg tablet 10 mg PO TID PRN pain #90 tabs 09/24/24 lidocaine 5 % topical patch 1 patch topical DAILY #30 ea 09/29/24 (Lidoderm) Allergies Allergy/AdvReac Type Severity Reaction Status Date / Time Sulfa (Sulfonamide Allergy Severe Anaphylaxis Verified 09/29/24 15:53 Antibiotics) marijuana (cannabis) Allergy Anaphylaxis Verified 09/29/24 15:53 acetaminophen AdvReac Mild Vomiting Verified 09/29/24 15:53 NSAIDS (Non-Steroidal AdvReac Mild GI Upset Verified 09/29/24 15:53 Anti-Inflamma Review of Systems <Kailey Cifuentes PA-C - Last Filed: 09/29/24 19:03> Review of Systems ROS Unobtainable: All systems reviewed & are unremarkable except as noted in HPI and below Patient History <Kailey Cifuentes PA-C - Last Filed: 09/29/24 19:03> Medical History Scoliosis HTN (hypertension) Bipolar disorder DVT of leg (deep venous thrombosis) Opiate dependence Encounter for subsequent annual wellness visit (AWV) in Medicare patient Diabetic peripheral neuropathy Type 2 diabetes mellitus with complication, without long-term current use of insulin Hyperlipidemia CKD (chronic kidney disease) stage 3, GFR 30-59 ml/min Narcolepsy (~1999) Depression TIA (transient ischemic attack) (~2017) Peripheral neuropathy (~04/2022) Fractures Chicken pox Vertigo (~1969) Heavy menstrual period (~1970) Abnormal Pap smear of cervix (~1978) Hemorrhoid (~1979) Colon polyps Deep vein thrombosis Cervical cancer Chronic pain Benign essential HTN Hypothyroidism (~2009) Surgical History Hx of ventral hernia repair History of revision of total replacement of left hip joint History of total left hip replacement S/P laparoscopy with lysis of adhesions History of hysterectomy Hx of colonoscopy Hx of cholecystectomy Hx of bilateral cataract extraction History of bowel resection Anesthesia Family History Father Diabetes mellitus History of heart disease Stroke Mother History of heart disease Grandfather History of heart disease Grandmother History of heart disease Grandfather Parkinson's disease Grandmother Alzheimer's disease Social History marital status: unmarried,single number of children: 2 household members: none Smoking Status: Former smoker alcohol intake: current Smoking Status: Former smoker tobacco type: cigarettes alcohol intake frequency: a few times a week Exam <Kailey Cifuentes PA-C - Last Filed: 09/29/24 19:03> Narrative Exam Narrative: GENERAL: 68 year old patient appears stated age. Overweight patient, in no acute distress. HEAD: Atraumatic. Normocephalic. NECK: Trachea midline. Cervical ROM intact. CARDIOVASCULAR: Regular rate and rhythm. RESPIRATORY: ?Nonlabored respirations. ?Speaking in clear, full sentences. EXTREMITIES: Mild BL LE edema, slightly more prominent on RLE. Tenderness to palpation of right dorsal midfoot. No tenderness to palpation of medial or lateral malleolus. No tenderness to palpation of 1st MTP. No erythema, increased warmth or rashes. No tenderness to palpation of calf but she does have some tenderness ascending from the dorsal midfoot to the vásquez. Strong DP and PT pulses and brisk capillary refill in the toes. NEURO: AOx3. ?Clear speech. ?Moves all 4 extremities appropriately. SKIN: No rash or erythema of visible areas Initial Vital Signs Initial Vital Signs: Vital Signs Temperature 97.5 F L 09/29/24 15:53 Pulse Rate 97 H 09/29/24 15:53 Respiratory Rate 17 09/29/24 15:53 Blood Pressure 136/69 09/29/24 15:53 Pulse Oximetry 97 09/29/24 15:53 Oxygen Delivery Method Room Air 09/29/24 15:53 <DO Nay Mckeon Last Filed: 09/30/24 10:02> Initial Vital Signs Initial Vital Signs: Vital Signs Temperature 97.5 F L 09/29/24 15:53 Pulse Rate 97 H 09/29/24 15:53 Respiratory Rate 17 09/29/24 15:53 Blood Pressure 136/69 09/29/24 15:53 Pulse Oximetry 97 09/29/24 15:53 Oxygen Delivery Method Room Air 09/29/24 15:53 Course <Kailey Cifuentes PA-C - Last Filed: 09/29/24 19:03> Orders Ordered: Discontinued Medications Lidocaine (Lidocaine 5% Patch) 1 each TOP NOW ONE Stop: 09/29/24 17:07 Last Admin: 09/29/24 17:14 Dose: 1 each Documented By: TC Oxycodone HCl (Oxycodone Ir 5 Mg Tablet) 10 mg PO NOW ONE Stop: 09/29/24 17:07 Last Admin: 09/29/24 17:13 Dose: 10 mg Documented By: TC Vital Signs Vital signs: Vital Signs - 8 hr 09/29/24 15:53 09/29/24 18:25 09/29/24 18:40 Temperature 97.5 F L 97.4 F L Pulse Rate 97 H 82 Respiratory Rate 17 16 Blood Pressure 136/69 129/70 Pulse Oximetry 97 97 Oxygen Delivery Method Room Air Room Air <Estela Mae DO - Last Filed: 09/30/24 10:02> Orders Ordered: Discontinued Medications Lidocaine (Lidocaine 5% Patch) 1 each TOP NOW ONE Stop: 09/29/24 17:07 Last Admin: 09/29/24 17:14 Dose: 1 each Documented By: TC Oxycodone HCl (Oxycodone Ir 5 Mg Tablet) 10 mg PO NOW ONE Stop: 09/29/24 17:07 Last Admin: 09/29/24 17:13 Dose: 10 mg Documented By: TC Vital Signs Vital signs: Vital Signs - 8 hr 09/29/24 15:53 09/29/24 18:25 09/29/24 18:40 Temperature 97.5 F L 97.4 F L Pulse Rate 97 H 82 Respiratory Rate 17 16 Blood Pressure 136/69 129/70 Pulse Oximetry 97 97 Oxygen Delivery Method Room Air Room Air MDM - Extremity (Nontraumatic) <Kailey Cifuentes PA-C - Last Filed: 09/29/24 19:03> Medical Records Attestation: I reviewed the patient's medical records. Imaging Data Right Foot X-Ray: Radiologist's Impression: PROCEDURE: XR FOOT RT MIN 3V INDICATIONS: pain without injury TECHNIQUE: 3 views of the foot were acquired. COMPARISON: None. FINDINGS: Bones: No fractures or dislocations. No suspicious bony lesions. There is mild hallux valgus with mild associated degenerative changes. Dorsal midfoot degenerative changes are present as well as a large calcaneal enthesophyte. Soft tissues: No tibiotalar joint effusion. Achilles tendon appears normal. IMPRESSION: Mild hallux valgus without acute osseous abnormality. RLE Venous US: Radiologist's Impression: PROCEDURE: US PERIPH VENOUS LOW EXTREM RT INDICATIONS: right leg swelling and pain in ankle/foot; hx DVT TECHNIQUE: Real-time imaging, as well as color and pulse Doppler interrogation, were performed of the lower extremity deep veins from the inguinal ligament to the popliteal fossa, with documentation of the visualized calf veins. COMPARISON: None. FINDINGS: The common femoral, femoral, popliteal, and the visualized calf veins are normally compressible, and free of intraluminal thrombus. Color and pulse Doppler demonstrate normal phasic intraluminal flow. There is normal augmentation response to distal compression maneuver. IMPRESSION: No findings of lower extremity deep venous thrombosis. MDM Narrative Medical decision making narrative: 68-year-old female with a past medical history of osteoarthritis on pain management, type 2 diabetes, CKD, DVT on Eliquis, hypertension, hypothyroidism who presents to the emergency department for nontraumatic right foot pain x2 or 3 weeks. Differential diagnosis includes but is not limited to arthritis, gout, cellulitis, DVT, fracture, etc. On exam the patient is in no acute distress, nontoxic appearing, vital signs appropriate. Physical exam reveals tenderness to palpation of right dorsal midfoot with no overlying skin changes. She does have mild edema of the right lower extremity however also present on the left lower extremity to a lesser extent. No signs of cellulitis. X-ray obtained in triage, given history of DVT now with painful swelling we will add on right lower extremity ultrasound. We will treat pain with home dose of 10 mg oxycodone and topical Lidoderm as well, patient can not take NSAIDs and declines acetaminophen as it makes her throw up. X-ray reveals mild hallux valgus, dorsal midfoot degenerative changes, large calcaneal enthesophyte, no acute bony abnormality. Right lower extremity ultrasound is negative for DVT. Her pain actually resolved with ED treatment. Suspect that her dorsal midfoot pain is related to her dorsal midfoot degenerative changes. Recommended continuing to use lidocaine patches, ambulating cautiously with her cane, and following up with the PCP or Podiatry for further management. We discussed strict ED return precautions. She verbalized understanding of all information agreeable with the plan. She is stable for discharge home. Discharge Plan Departure Patient Disposition: Home Clinical Impression: Arthritis of foot, right, degenerative Qualifiers: Osteoarthritis type: unspecified Qualified Code(s): M19.071 - Primary osteoarthritis, right ankle and foot Instructions: DI for Foot Pain Activity Restrictions/Additional Instructions: Dear Christianbrittanyricha, Thank you for coming to the emergency department. Today you were evaluated for right foot pain. Your x-ray shows degenerative changes as well as a large heel spur. There are no fractures or dislocation seen on x-ray today. Ultrasound of your right lower leg reveals no blood clot. I suspect her pain is likely related to the underlying arthritis. Please rest, use the prescribed lidocaine patches, or topical Voltaren/arthritis gel, and follow up with your primary care doctor or [facility] for further management. Please use RICE therapy for your pain. Rest the painful area. Ice the area of pain/swelling for at least 15 minutes, 4x a day. Compress the area of swelling using a brace, wrap, or splint if applied. Elevate the painful or swollen extremity by supporting it above the level of the heart with pillows when sitting or laying. Please return to the emergency department immediately if you develop any new or worsening symptoms, fevers, redness or other skin changes. Please follow up with your primary care doctor within the next 2-3 days for ER follow-up. (If you do not have a PCP you can call [phone]. ?to schedule an appointment with an [facility] Primary Care Provider) IF YOU DEVELOP ANY NEW OR WORSENING SYMPTOMS, RETURN TO THE ER! Please read the attached instructions, they highlight more specific treatments and interventions for you at home. Thank you for letting me participate in your care, Kailey Cifuentes PA-C Prescriptions: New lidocaine [Lidoderm] 5 % adhesive patch,medicated 1 patch topical DAILY Qty: 30 0RF Rx Instructions: leave on most painful area for up to 12 hrs No Action fenofibrate 160 mg tablet 160 mg PO DAILY Qty: 90 3RF Eliquis 5 mg tablet 5 mg PO BID Qty: 180 3RF Rx Instructions: stop xarelto Jardiance 10 mg tablet 10 mg PO DAILY Qty: 90 3RF amlodipine [Norvasc] 10 mg tablet 10 mg PO DAILY Qty: 90 3RF levothyroxine 112 mcg tablet See Rx Instructions .ROUTE .COMPLEX Qty: 90 3RF Dose Instruction: TAKE 1 TABLET BY MOUTH DAILY Rx Instructions: TAKE 1 TABLET BY MOUTH DAILY furosemide [Lasix] 20 mg tablet 20 mg PO DAILY PRN (Reason: edema) (DME) Disabled Parking Permit See Rx Instructions .ROUTE .MEDSUPPLY Qty: 1 0RF Rx Instructions: I find this patient to be medically disabled and qualified for Disabled Parking as indicated on the accompanying Disabled Parking Application for Individuals. cholestyramine (with sugar) 4 gram powder 2 g PO TID PRN (Reason: diarrhea) Qty: 348.6 4RF gabapentin 300 mg capsule 300 mg PO TID PRN (Reason: nerve pain) Qty: 60 3RF potassium chloride 20 mEq tablet,ER particles/crystals 20 meq PO DAILY Qty: 30 5RF methocarbamol 750 mg tablet 750 mg PO Q8H PRN (Reason: muscle spasm) Qty: 30 5RF oxycodone 10 mg tablet 10 mg PO Q8H PRN (Reason: pain) Qty: 90 0RF Rx Instructions: rx 1/3. oxycodone 10 mg tablet 10 mg PO TID PRN (Reason: pain) Qty: 90 0RF Rx Instructions: rx 2/3 oxycodone 10 mg tablet 10 mg PO TID PRN (Reason: pain) Qty: 90 0RF Rx Instructions: rx 3/3 Referrals: Higinio Block DO [Primary Care Provider] - Stand Alone Forms: Patient Portal/API/Survey ED Sign-out <Estela Mae DO - Last Filed: 09/30/24 10:02> Cosign ED Attending Cosignature Attestation: I was available for consultation.
--- NOTE | 2024-09-29 17:06 | DI.US.S_ITS ---
PROCEDURE: US PERIPH VENOUS LOW EXTREM RT INDICATIONS: right leg swelling and pain in ankle/foot; hx DVT TECHNIQUE: Real-time imaging, as well as color and pulse Doppler interrogation, were performed of the lower extremity deep veins from the inguinal ligament to the popliteal fossa, with documentation of the visualized calf veins. COMPARISON: None. FINDINGS: The common femoral, femoral, popliteal, and the visualized calf veins are normally compressible, and free of intraluminal thrombus. Color and pulse Doppler demonstrate normal phasic intraluminal flow. There is normal augmentation response to distal compression maneuver. IMPRESSION: No findings of lower extremity deep venous thrombosis. Dictated by: Deborah Castanon M.D. on 09/29/2024 at 16:57 Approved by: Deborah Castanon M.D. on 09/29/2024 at 16:59
[2024-09-29] MEDS: OXYCODONE IR 5 MG TABLET 10 MG PO (17:13)
[2024-09-29] MEDS: LIDOCAINE 5% PATCH 1 EACH TOP (17:14)
[2024-09-29 18:25] VITALS: BP 129/70; PULSE 82; RESP 16; O2SAT 97
[2024-09-29 18:40] VITALS: TEMP 36.3
== END 2024-09-29 18:40 | disposition home or self-care (01) ==
PROVIDERS: Emergency Provider Physician Assistant; Family Provider Family Medicine; PCP Family Medicine
DX: M19.071 Primary osteoarthritis, right ankle and foot (principal); R60.0 Localized edema; Z86.718 Personal history of other venous thrombosis and embolism; Z79.01 Long term (current) use of anticoagulants
CPT/HCPCS: 73630; 93971; 99283

== ENCOUNTER → 2024-10-11 07:50 | Outpatient (CLI) | payer MEDICARE, SELFPAY ==
[2024-07-09 11:14] VITALS: BMI 35.6
--- NOTE | 2024-10-11 07:51 | DI.MG.S_ITS ---
MM screening mammo BI: 10/11/2024. BI-RADS: 1 CLINICAL: 69-year old female for bilateral screening mammogram. Tyrer-Cuzick lifetime risk of 3.4%. No personal or first-degree family history of breast cancer. PRIOR EXAMS 09/22/2023, outside films 11/24/2021, 06/07/2018. MAMMOGRAPHY TECHNIQUE: 2D and 3D (tomosynthesis) digital mammographic views obtained, with additional images as needed for full coverage. Current study was also evaluated with a Computer Aided Detection (CAD) system. DENSITY B. There are scattered areas of fibroglandular density. MAMMOGRAPHY FINDINGS Bilateral: No suspicious mass, asymmetry, microcalcification, or other abnormality seen. No significant change from comparison. IMPRESSION: * No evidence of malignancy. RECOMMENDATIONS Bilateral * Annual screening mammography. OVERALL ASSESSMENT CATEGORY BI-RADS-1: Negative. The [employer] recommends annual screening mammography beginning at age 40 for women with average risk of breast cancer. ELECTRONICALLY SIGNED: Laura Ryan M.D. on 10/11/2024 at 12:15:34 PM PT Interpreting Station ID: [id number]
== END ==
LOC: MAMMO 07:51
PROVIDERS: Family Provider Family Medicine; PCP Family Medicine; Referring Provider Family Medicine; Visit Provider Family Medicine
DX: Z12.31 Encounter for screening mammogram for malignant neoplasm of breast (principal)
CPT/HCPCS: 77063; 77067

== ENCOUNTER 2024-12-25 13:10 | Emergency (ER) | payer MEDICARE, SELFPAY ==
[2024-07-09 11:14] VITALS: BMI 35.6
[2024-12-25 13:31] VITALS: BP 152/67; PULSE 95; RESP 20; TEMP 36.6; O2SAT 93; BMI 33.0
--- NOTE | 2024-12-25 13:37 | DI.RAD.S_ITS ---
PROCEDURE: XR KNEE LT 3V INDICATIONS: glf TECHNIQUE: 3 views of the knee were acquired. COMPARISON: [facility], , XR KNEE LT 3V, 06/14/2024, 10:54. FINDINGS: Bones: Minimally displaced vertically oriented intra-articular fracture at the lateral aspect of the patella extending to the lateral patellar facet. Soft tissues: No joint effusion. No suspicious soft tissue calcifications. IMPRESSION: Minimally displaced vertical fracture of the lateral patella. Approved by: Dmitry Mendez M.D. on 12/25/2024 at 14:23
--- NOTE | 2024-12-25 13:39 | DI.RAD.S_ITS ---
PROCEDURE: XR HIP W PEL IF DONE LT 2V INDICATIONS: L knee and hip pain after fall monday TECHNIQUE: AP pelvis with lateral view of the left hip. COMPARISON: [facility], CT, CT ABDOMEN PELVIS W CON, 07/16/2024, 1:32. FINDINGS: Bones: Postsurgical changes from left total hip arthroplasty with hardware components in stable positions. Somewhat vertical orientation of the acetabular cup is unchanged. Spinal fixation hardware is partially included. Mild lucency surrounding the sacral screws may indicate loosening.. Soft tissues: The visualized bowel gas pattern is normal. No suspicious soft tissue calcifications. IMPRESSION: Left total hip arthroplasty in expected position. No acute osseous abnormality. Approved by: Dmitry Mendez M.D. on 12/25/2024 at 14:21
--- NOTE | 2024-12-25 14:55 | ED_ITS ---
<Statement entered by Pancho Wick, DO - 12/25/24 17:34> Dr. Wick: I was immediately available in the department for consultation. I did not actually see the patient. HPI - Extremity Injury (Lower) General Chief Complaint: Extremity Injury, Lower Stated Complaint: Fell cant bare weight on left knee Time Seen by Provider: 12/25/24 14:52 Mode of arrival: Wheelchair History of Present Illness HPI Narrative: Ms. Chow is a very pleasant 69-year-old female with a past medical history of osteoarthritis on pain management, T2 DM, CKD, DVT on Eliquis, HTN, hypothyroidism who presents to the emergency department with left knee pain x 4 days. Patient states on Monday she had a nosebleed and was rushing to the bathroom and therefore did not use her cane and tripped on the divide between the 2 rooms and fell forward landing directly on her left knee and then falling onto the left hip. She did not hit her head on the ground in the knee took the majority of the trauma. She was having only mild pain however today while walk ing the left knee became much more painful causing her to use a walker instead of her normal cane. She denies any headache, head trauma, neck pain, back pain, abdominal pain, open wounds. Describes pain as on the front lateral side of the left knee. Related Data Previous Rx's ?Medication ?Instructions ?Recorded fenofibrate 160 mg tablet 160 mg PO DAILY for choleste rol 12/28/23 #90 tabs apixaban 5 mg tablet (Eliquis) 5 mg PO BID #180 tabs 1 Disabled Parking Permit #1 ea 05/07/24 empagliflozin 10 mg tablet 10 mg PO DAILY #90 tabs (Jardiance) amlodipine 10 mg tablet (Norvasc) 10 mg PO DAILY #90 t abs 09/20/24 levothyroxine 112 mcg tablet See Rx Instructions .Rout e 09/23/24 .COMPLEX #90 tabs lidocaine 5 % topical patch 1 patch topical DAILY #30 ea 09/29/24 (Lidoderm) furosemide 20 mg tablet (Lasix) 20 mg PO DAILY PRN alfonzo ma #90 tabs 10/25/24 potassium chloride 20 mEq 20 meq PO DAILY #30 tabs tablet,extended release(part/cryst) oxycodone 10 mg tablet 10 mg PO Q8H PRN pain #90 ta bs 11/28/24 oxycodone 10 mg tablet 10 mg PO TID PRN pain #90 ta bs 11/28/24 oxycodone 10 mg tablet 10 mg PO TID PRN pain #90 ta bs 11/28/24 gabapentin 300 mg capsule 300 mg PO TID PRN nerve pain #60 12/25/24 caps polymyxin B sulfate 10,000 1 drp ophthalmic (eye) QID 7 days 12/25/24 unit-trimethoprim 1 mg/mL eye drops #10 mL Allergies Allergy/AdvReac Type Severity Reaction Status Date / Time Sulfa (Sulfonamide Allergy Severe Anaphylaxis Verified 12/25/24 13:34 Antibiotics) marijuana (cannabis) Allergy Anaphylaxis Verified 12/25/24 13:34 acetaminophen AdvReac Mild Vomiting Verified 12/25/24 13:34 NSAIDS (Non-Steroidal AdvReac Mild GI Upset Verified 12/25/24 13:34 Anti-Inflamma Review of Systems Review of Systems ROS Unobtainable: All systems reviewed & are unremarkable except as noted in HPI and below Patient History Medical History Scoliosis HTN (hypertension) Bipolar disorder DVT of leg (deep venous thrombosis) Opiate dependence Encounter for subsequent annual wellness visit (AWV) in Medicare patient Diabetic peripheral neuropathy Type 2 diabetes mellitus with complication, without long-term current use of insulin Hyperlipidemia CKD (chronic kidney disease) stage 3, GFR 30-59 ml/min Narcolepsy (~1999) Depression TIA (transient ischemic attack) (~2017) Peripheral neuropathy (~04/2022) Fractures Chicken pox Vertigo (~1969) Heavy menstrual period (~1970) Abnormal Pap smear of cervix (~1978) Hemorrhoid (~1979) Colon polyps Deep vein thrombosis Cervical cancer Chronic pain Benign essential HTN Hypothyroidism (~2009) Surgical History Status post cervical spinal fusion Hx of ventral hernia repair History of revision of total replacement of left hip joint History of total left hip replacement S/P laparoscopy with lysis of adhesions History of hysterectomy Hx of colonoscopy Hx of cholecystectomy Hx of bilateral cataract extraction History of bowel resection Anesthesia Family History Father Diabetes mellitus History of heart disease Stroke Mother History of heart disease Grandfather History of heart disease Grandmother History of heart disease Grandfather Parkinson's disease Grandmother Alzheimer's disease Social History marital status: unmarried,single number of children: 2 household members: none Smoking Status: Never smoker alcohol intake: current Smoking Status: Never smoker tobacco type: cigarettes alcohol intake frequency: a few times a week Exam Narrative Exam Narrative: GENERAL: 69 year old patient appears stated age. Well-developed patient, in no acute distress. HEAD: Atraumatic. Normocephalic. EYES: No scleral icterus. No injection or drainage. ENT: Nose without bleeding, purulent drainage. NECK: Trachea midline. Cervical ROM intact. CARDIOVASCULAR: Regular rate RESPIRATORY: Nonlabored respirations. Speaking in clear, full sentences. EXTREMITIES: Tenderness to palpation of left anterior lateral knee, ecchymosis proximal to the left knee. Patient still has active flexion and extension intact of the left knee. Strong DP pulse. No open wounds. There is edema of the lower extremity. BACK: Nontender. No tenderness to palpation of bilateral hips. NEURO: AOx3. Clear speech. Moves all 4 extremities appropriately. SKIN: Ecchymosis proximal left anterior knee. Initial Vital Signs Initial Vital Signs: Vital Signs Temperature 98 F 12/25/24 13:31 Pulse Rate 95 H 12/25/24 13:31 Respiratory Rate 20 12/25/24 13:31 Blood Pressure 152/67 H 12/25/24 13:31 Pulse Oximetry 93 12/25/24 13:31 Oxygen Delivery Method Room Air 12/25/24 13:31 Course Orders Ordered: ED Orders 12/25/24 13:37 XR knee LT 3V Stat 12/25/24 13:39 XR hip w pel LT 2V Stat Consultations Consultation #1: Discussed case with on-call orthopedic surgeon Dr. Gore. She is agreeable to left knee immobilizer, walker and outpatient follow up with the patient. Time: 15:22 Vital Signs Vital signs: Vital Signs - 8 hr 12/25/24 13:31 12/25/24 15:46 Temperature 98 F Pulse Rate 95 H 96 H Respiratory Rate 20 18 Blood Pressure 152/67 H 158/83 H Pulse Oximetry 93 95 Oxygen Delivery Method Room Air Room Air MDM - Extremity Injury (Lower) Medical Records Attestation: I reviewed the patient's medical records. Imaging Data Left Knee X-Ray: Radiologist's Impression: PROCEDURE: XR KNEE LT 3V INDICATIONS: glf TECHNIQUE: 3 views of the knee were acquired. COMPARISON: [facility], CR, XR KNEE LT 3V, 06/14/2024, 10:54. FINDINGS: Bones: Minimally displaced vertically oriented intra-articular fracture at the lateral aspect of the patella extending to the lateral patellar facet. Soft tissues: No joint effusion. No suspicious soft tissue calcifications. IMPRESSION: Minimally displaced vertical fracture of the lateral patella. Approved by: Dmitry Mendez M.D. on 12/25/2024 at 14:23 Pelvis / left Hip: Radiologist's Impression: PROCEDURE: XR HIP W PEL IF DONE LT 2V INDICATIONS: L knee and hip pain after fall monday TECHNIQUE: AP pelvis with lateral view of the left hip. COMPARISON: [facility], CT, CT ABDOMEN PELVIS W CON, 07/16/2024, 1:32. FINDINGS: Bones: Postsurgical changes from left total hip arthroplasty with hardware components in stable positions. Somewhat vertical orientation of the acetabular cup is unchanged. Spinal fixation hardware is partially included. Mild lucency surrounding the sacral screws may indicate loosening.. Soft tissues: The visualized bowel gas pattern is normal. No suspicious soft tissue calcifications. IMPRESSION: Left total hip arthroplasty in expected position. No acute osseous abnormality. Approved by: Dmitry Mendez M.D. on 12/25/2024 at 14:21 MDM Narrative Medical decision making narrative: 69-year-old female with a past medical history of osteoarthritis on pain management, T2DM, CKD, DVT on Eliquis, HTN, hypothyroidism who presents to the e mergency department with left knee pain x 4 days. Differential diagnosis includes but is not limited to left knee fracture, dislocation, sprain, strain, contusion, hip fx, etc. On exam the patient is in no acute distress, nontoxic appearing, left knee bruising and tenderness present however no obvious deformities and patient is able to flex and extend independently. Lower extremities neurovascularly intact. X-rays obtained in triage reveal left hip/ pelvis total hip arthroplasty in expected position, no acute osseous abnormality. Patient does have a left patellar fracture, minimally displaced vertical fracture of the lateral patella. We will consult Orthopedics. After discussion with Orthopedics, will place patient to left knee immobilizer, she has her own walker to use, and will follow up outpatient. Recommended rice therapy, she has oxycodone to use for pain. She feels comfortable going home and using the walker. Discussed ED return precautions. She verbalized understanding of all information agreeable with the plan. She is stable for discharge home. Discharge Plan Departure Patient Disposition: Home Clinical Impression: Ground-level fall Closed fracture of left patella Qualifiers: Encounter type: initial encounter Fracture morphology: unspecified fracture morphology Fracture alignment: displaced Qualified Code(s): S82.002A - Unspecified fracture of left patella, initial encounter for closed fracture Instructions: DI for Patella Fracture Activity Restrictions/Additional Instructions: Dear Ms. Olmedoricha, Thank you for coming to the emergency department. Today you were evaluated for left knee pain and the x-ray of your left knee shows that you did break your patella bone. Please continue wearing the brace and using a walker, and follow up with the orthopedic surgeon for further management. Please use RICE therapy for your pain in addition to acetaminophen. Rest the painful area. Ice the area of pain/swelling for at least 15 minutes, 4x a day. Compress the area of swelling using a brace, wrap, or splint if applied. Elevate the painful or swollen extremity by supporting it above the level of the heart with pillows when sitting or laying. Please follow up with your primary care doctor within the next 2-3 days for ER follow-up. (If you do not have a PCP you can call [phone]. to schedule an appointment with an [facility] Primary Care Provider) IF YOU DEVELOP ANY NEW OR WORSENING SYMPTOMS, RETURN TO THE ER! Please read the attached instructions, they highlight more specific treatments and interventions for you at home. Thank you for letting me participate in your care, Kailey Cifuentes PA-C Prescriptions: No Action polymyxin B sulf-trimethoprim 10,000 unit- 1 mg/mL drops 1 drp ophthalmic (eye) QID 7 Days Qty: 10 0RF fenofibrate 160 mg tablet 160 mg PO DAILY Qty: 90 3RF Eliquis 5 mg tablet 5 mg PO BID Qty: 180 3RF Rx Instructions: stop xarelto Jardiance 10 mg tablet 10 mg PO DAILY Qty: 90 3RF amlodipine [Norvasc] 10 mg tablet 10 mg PO DAILY Qty: 90 3RF levothyroxine 112 mcg tablet See Rx Instructions .ROUTE .COMPLEX Qty: 90 3RF Dose Instruction: TAKE 1 TABLET BY MOUTH DAILY Rx Instructions: TAKE 1 TABLET BY MOUTH DAILY furosemide [Lasix] 20 mg tablet 20 mg PO DAILY PRN (Reason: edema) Qty: 90 3RF potassium chloride 20 mEq tablet,ER particles/crystals 20 meq PO DAILY Qty: 30 5RF gabapentin 300 mg capsule 300 mg PO TID PRN (Reason: nerve pain) Qty: 60 3RF (DME) Disabled Parking Permit See Rx Instructions .ROUTE .MEDSUPPLY Qty: 1 0RF Rx Instructions: I find this patient to be medically disabled and qualified for Disabled Parking as indicated on the accompanying Disabled Parking Application for Individuals. oxycodone 10 mg tablet 10 mg PO Q8H PRN (Reason: pain) Qty: 90 0RF Rx Instructions: rx 1/3. oxycodone 10 mg tablet 10 mg PO TID PRN (Reason: pain) Qty: 90 0RF Rx Instructions: rx 2/3 oxycodone 10 mg tablet 10 mg PO TID PRN (Reason: pain) Qty: 90 0RF Rx Instructions: rx 3/3 lidocaine [Lidoderm] 5 % adhesive patch,medicated 1 patch topical DAILY Qty: 30 0RF Rx Instructions: leave on most painful area for up to 12 hrs Referrals: Kaitlyn Gore DO [Physician, Orthopedic Surgery] Referral Note: Left patella fracture Higinio Block DO [Primary Care Provider, Family Practice] Stand Alone Forms: Patient Portal/API
--- NOTE | 2024-12-25 15:01 | PC.NURSE ---
Addendum entered by Maura Larose R.N. 12/25/24 15:10: Pt states she has had numerous surgeries and recently has had issues with lower extremity swelling and states she takes lasix for this and states her md is not sure why she is having swelling but thinks it may be due to the surgeries. Original Note: Pt reports she got a nose bleed on Monday and she rushed to the bathroom to get a tissue; states on way to bathroom she fell on her left knee and heard a crack. Swelling and minimal bruising noted to left knee. pt reports she is on pain medication already post spine surgery. states she did not hurt her spine in fall. pt reports she is on a blood thinner; states she did not hurt her head. Pt reports she has been elevating her leg over the past 72 hours but stated the pain has not improved. pedal pulses 2+
[2024-12-25 15:46] VITALS: BP 158/83; PULSE 96; RESP 18; O2SAT 95
== END 2024-12-25 15:47 | disposition home or self-care (01) ==
PROVIDERS: Emergency Provider Physician Assistant; Family Provider Family Medicine; PCP Family Medicine
DX: S82.002A Unspecified fracture of left patella, initial encounter for closed fracture (principal); W18.30XA Fall on same level, unspecified, initial encounter
CPT/HCPCS: 73502; 73562; 99282; 99283

== ENCOUNTER → 2025-01-14 09:36 | Outpatient (CLI) | payer MEDICARE, SELFPAY ==
[2024-07-09 11:14] VITALS: BMI 35.6
--- NOTE | 2025-01-14 14:04 | ST.SWALLOW ---
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 Pts' PMH includes scoliosis, thoracic fusion surgery and TIA in ~2018. Pt reported that she has difficulty swallowing foods and liquids that started immediately after her cervical surgery. Pt notes she does not completely swallow a bolus, which requires multiple swallows. With liquids, she reported the liquid entering her airway after which she huffs the liquid to clear airway like clearing a snorkel. Her difficulty with swallowing occurs 2/3x /meal, daily. Pt stated she has made modifications to her diet, such as small bites, small sips of liquids, uses a straw and takes pills one at a time. She is eating more soups and smoothies because they don't get stuck. Subjective Pt was seated in the fluoroscopy chair with directions Observations and procedures described for her. She indicated she understood and agreed to proceed. Patient Positioning Position View Lat-A/P Imaging Lateral View Textures Administered Trials Presented Thin Liquid via Spoon (IDDSI 0),Thin Liquid via Straw ( IDDSI 0),Extremely Thick Liquid via Spoon (IDDSI 4), Easy to Chew (IDDSI 7) Barium Tablet Yes The IDDSI Framework Protocol: IDDSI.1 Oral Impairment Source: The Modified Barium Swallow Impairment Profile (MBSImP??) Lip Closure No labial escape Tongue Control Cohesive bolus between tongue to palatal seal During Bolus Hold Bolus Preparation/ Timely & efficient chewing & mashing Mastication Bolus Transport/ Brisk tongue motion Lingual Motion Oral Residue Residue collection on oral structures Location Tongue Initiation of Bolus head at posterior laryngeal surface of epiglottis Pharyngeal Swallow Additional Oral Oral phase WNL Impairment *OME and DKS were observed to be WFL. Tongue deviated Observations to the left when protruded *Dentition natural and in good hygiene. Upper partial in place *Mastication observed with rotary chew pattern. *Good bolus formation, control and AP transition. *Velopharyngeal closure was WNL. Pharyngeal Impairment Source: The Modified Barium Swallow Impairment Profile (MBSImP??) Soft Palate No bolus between soft palate & pharyngeal wall Elevation Laryngeal Elevation Min.sup.move. thyroid cart. w/min.approx.arytenoids to epiglot.petiole Anterior Hyoid No anterior movement Excursion Epiglottic Movement Partial inversion Laryngeal Vestibular Incomplete; narrow column air/contrast in laryngeal Closure vestibule Pharyngeal Stripping Present - diminished Wave Pharyngoesophageal Partial distention/partial duration; partial Segment Opening obstruction of flow Tongue Base Wide column of contrast/air betwn tongue base & post. Retraction pharyngeal wall Pharyngeal Residue Collection of residue within/on pharyngeal structures Location Diffuse (>3 areas) Additional Pharyngeal phase moderately impaired Pharyngeal *Inconsistent inversion of epiglottis; incomplete, Impairment partial and no inversion observed across trials Observations *Reduced extension and duration of the UES, requiring repeated swallows *Weak base of tongue retraction strength, negatively impacting hyolaryngeal elevation and movement and epiglottal inversion *Diffuse pharyngeal pooling on all structures *Laryngeal penetration observed; no tracheal aspiration noted *Reduced stripping of posterior pharyngeal wall Overall, the above observations appear to contribute to a reduction in bolus control through the pharynx, resulting in diffuse pooling of contrast. This is most evident with semi solid and solid trials. Liquid wash with water is partially effective in clearing pooled contrast. There was residual cookie on the aryepiglottic folds and posterior pharyngeal wall when pt noted Its still there. A/P View Textures Administered Trials Presented Thin Liquid via Spoon (IDDSI 0) The IDDSI Framework Protocol: IDDSI.1 A/P View Observations Pharyngeal Complete Contraction Esophageal Clearance Complete clearance; esophageal coating Upright Position Vocal Fold Function Good Esophageal Function WFL Additional A-P esophageal phase WNL Observations Clinical Impressions Dysphagia Type Pharyngeal Findings Pt presented with moderately impaired pharyngeal phase dysphagia. Reduced extension and duration of the UES, requiring repeated swallows was observed. Additional observations include: weak base of tongue retraction strength (negatively impacting hyolaryngeal elevation and movement and epiglottal inversion. Inconsistent inversion of epiglottis observed; incomplete, partial and no inversion observed across trials. Diffuse pharyngeal pooling on all structures with laryngeal penetration observed; no tracheal aspiration noted, Overall, the above observations appear to contribute to a reduction in bolus control through the pharynx resulting in diffuse pooling of contrast. This is most evident with semi solid and solid trials. Liquid wash with water partially effective in clearing pooled contrast. There was residual cookie on the aryepiglottic folds and posterior pharyngeal wall when pt noted Its still there. Given the extent of the cervical fusion surgery, anatomical and neuromuscular changes are suspected: Delays in swallow initiation with reduced coordination of timing and control of the bolus negatively impact the pt's ability to swallow and her quality of life. She reported she has altered the foods she eats, and instead of 3 meals/day, she described her eating patter as grazing all day. Continued swallow therapy is recommended targeting bas of tongue exercises and safe swallow strategies. Pt is currently participating in for swallowing. Rehabilitation Excellent Potential Patient Appropriate Yes for Therapy Recommendations Diet Liquids Order Thin (IDDSI 0) Diet Order Regular (IDDSI 7) Medication As Tolerated Recommendation Aspiration Precautions Recommended Alternate Liquids/Solids,Frequent Rest Periods,Small Precautions Bites/Sips Treatment Plan Therapy Outpatient Speech Therapy Recommendations
== END ==
PROVIDERS: Family Provider Family Medicine; PCP Family Medicine; Referring Provider Family Medicine; Visit Provider Family Medicine
DX: R13.10 Dysphagia, unspecified (principal)
CPT/HCPCS: 74230; 92611

== ENCOUNTER → 2025-01-28 09:37 | Outpatient (CLI) | payer MEDICARE, SELFPAY ==
[2024-07-09 11:14] VITALS: BMI 35.6
== END ==
PROVIDERS: Family Provider Family Medicine; PCP Family Medicine; Referring Provider Family Medicine; Visit Provider Surgery
DX: T81.31XA Disruption of external operation (surgical) wound, not elsewhere classified, initial encounter (principal); S11.90XA Unspecified open wound of unspecified part of neck, initial encounter; E11.622 Type 2 diabetes mellitus with other skin ulcer; Z87.891 Personal history of nicotine dependence; I10 Essential (primary) hypertension; F31.9 Bipolar disorder, unspecified; E11.42 Type 2 diabetes mellitus with diabetic polyneuropathy; E78.5 Hyperlipidemia, unspecified; E11.22 Type 2 diabetes mellitus with diabetic chronic kidney disease; N18.9 Chronic kidney disease, unspecified; Z86.73 Personal history of transient ischemic attack (TIA), and cerebral infarction without residual deficits; E03.9 Hypothyroidism, unspecified
CPT/HCPCS: 11042; 73564; 87070; 87147; 87205; 99203; 99213

== ENCOUNTER 2025-01-28 13:45 | Outpatient (RCR) | payer MEDICARE, SELFPAY ==
[2024-07-09 11:14] VITALS: BMI 35.6
--- NOTE | 2025-01-07 16:51 | ST.OPIE ---
Visit Care Team Role Provider Type Higinio Block DO Attending Provider Physician Family Provider Primary Care Provider Referring Provider Specialty: Family Practice Address: [address] [place] [address], [address], [place], [address] Email: [email or web address] Speech-Language Pathology Initial Evaluation HIDE STRETCHER HAND Clinical Swallow Evaluation Start: 01/07/25 16:26 Freq: Status: Active Protocol: Document 01/07/25 16:39 MA (Rec: 01/07/25 16:51 MA Desktop) Clinical Swallow Evaluation Session Time Visit Start Time 13:45 Visit Stop Time 14:20 Total Visit Minutes 35 Visit Information Visit Number Initial Eval Plan of Care Dates 01/07/25-04/09/25 Insurance Medicare Information Referral Referring Provider Dr. Block Reason for Referral Dysphagia Setting Assessment Location Outpatient Care Visit Type Note Type Initial evaluation Next Note Type Next Note Type Treatment Note Patient Information Identification Type Name History Pt is a 69 year old female who presents today for a swallow evaluation by the referral of Dr. Block. Patient had cervical spine fusion on October 25. Since that time she has had persistent difficulty swallowing. She states that recently it has been more persistent. She has to clear her throat frequently after eating. She has to make sure she eats small bites and potentially has to make sure she has enough to drink to make sure things go down properly. She struggles more with solids but still chokes on liquids as well. No prolonged cough. No fevers, chills. No respiratory distress. She has lost about 20 lb since her surgery but she was trying to be careful with her calories to facilitate some weight loss. She states she has to sit up very straight when eating and drinking, while taking small sips and bites and takes her pills one at a time. She utilizes a straw to gauge how much liquid she is consuming. Her goal for therapy is to increase ease of swallowing. Subjective Pt was pleasant, oriented and attentive. She reports Observations she lives a lone. Reported by Patient/Caregiver Other Symptoms Choking,Coughing,Difficulty swallowing liquids, Difficulty swallowing pills,Difficulty swallowing solids,Food gets stuck Current Diet Regular (IDDSI 7) Baseline Feeding Independent in self-feeding Method The IDDSI Framework Protocol: IDDSI.1 Objective Assessment Mental Status Alert,Responsive,Cooperative Oral Integrity WFL Dentition Within normal limits Comment Oral motor exam revealed oral musculature strength and RoM WFL. Food and Liquid Trials Position During Upright (90 degrees) Assessment Liquids Trialed Thin (IDDSI 0) Solid Trials Purred (IDDSI 4),Soft & Bite-sized (IDDSI 6),Regular ( IDDSI 7) Administration Type Cup single sip,Straw Oral Impairment Within functional limits Oral Phase Comments Pt consumed 1 alejandra cracker, 2oz of diced peaches and about 2 oz of pudding with 4 oz of thin water via cup. Pt reports she has been experiencing an increase in residue in her mouth when eating foods such as salads at home, however no observed residue in oral cavity during evaluation. Pt with small bites and alternating liquids/solids with all PO trials. Pt with adequate mastication and bolus formation and control, good oral acceptance and containment with all PO trials. Pharyngeal Moderately impaired Impairment Pharyngeal Phase Pt reported peaches stuck in throat x2 and reported It Comments feels like there's a curve where it gets stuck. She benefited from alternating liquids/solids to assist with clearance. Pt reported no globus sensation with alejandra cracker or pudding. She exhibited 1x cough reflex with water and stated it was because she took too large of a sip. Fatigue/Endurance Endurance WNL The IDDSI Framework Protocol: IDDSI.1 Findings Swallowing Function Pharyngeal phase dysphagia Severity of Swallow Mildly-moderately impaired Impairment Prognosis Good Comments Unable to rule out aspiration with imaging Recommendations Instrumental Yes Assessment Swallowing Treatment Yes Frequency 1x/week Duration 3 months Recommended Solids Regular (IDDSI 7) Recommended Liquids Thin (IDDSI 0) Other Pt presents with mild-mod suspected pharyngeal Recommendations dysphagia. ST recommends Pt continue regular solids and thin liquids, however ensure she is consuming enough in order to meet primary nutrition/hydration goals. ST recommends she utilize safe swallowing strategies stated below. ST recommends MBS prior to initiating swallow exercises. Safety Precautions/ Remain upright (90 degrees) during all oral intake, Swallowing Upright position at least 30 minutes after meals,Small Recommendations bites and sips when eating,Slow rate; swallow between bites,Alternate liquids and solids,Strict oral care after intake Medication One at a Time Recommendations Discharge Home Recommendations Education Patient/Caregiver Described results of evaluation,Patient expressed Education understanding of evaluation,Patient expressed agreement with goals & treatment plans,Patient requires further education/training Goals Short-term Goals STG 1: Pt will participate in MBS in order to guide POC . STG 2: Pt will tolerate prescribed diet with <5% overt s/s of aspiration/dysphagia with use of compensatory swallowing strategies and minimal cues. Long-term Goals LTG 1: Patient will consume safest and most efficient least restrictive diet with no clinical s/s of aspiration or dysphagia 100% of the time in order to meet primary nutrition/hydration needs.
--- NOTE | 2025-01-07 16:51 | ST.OPPOC ---
Physical, Occupational & Speech Therapy At [facility] Visit Care Team Role Provider Type Higinio Block DO Attending Provider Physician Family Provider Primary Care Provider Referring Provider Address: [address] [place] [address], [address], [place], [address] Speech Pathology Plan of Care Plan of Care Dates 01/07/25-04/09/[address] Block Patient History Pt is a 69 year old female who presents today for a swallow evaluation by the referral of Dr. Block. Patient had cervical spine fusion on October 25ly. Since that time she has had persistent difficulty swallowing. She states that recently it has been more persistent . She has to clear her throat frequently after eating. She has to make sure she eats small bites and potentially has to make sure she has enough to drink to make sure things go down properly. She struggles more with solids but still chokes on liquids as well. No prolonged cough. No fevers, chills. No respiratory distress. She has lost about 20 lb since her surgery but she was trying to be careful with her calories to facilitate some weight loss. She states she has to sit up very straight when eating and drinking, while taking small sips and bites and takes her pills one at a time. She utilizes a straw to gauge how much liquid she is consuming. Her goal for therapy is to increase ease of swallowing. Short-term Goals STG 1: Pt will participate in MBS in order to guide POC. STG 2: Pt will tolerate prescribed diet with <5% overt s/s of aspiration/dysphagia with use of compensatory swallowing strategies and minimal cues. Long-term Goals LTG 1: Patient will consume safest and most efficient least restrictive diet with no clinical s/s of aspiration or dysphagia 100% of the time in order to meet primary nutrition/ hydration needs. Comment: Electronically Signed by: TK Dominguez 01/07/25 [id number] If you are in agreement with this Plan of Care, please return a signed and dated copy. I have reviewed this Plan of Care and certify that the skilled therapy services above are required to meet the patient?s needs. Physician Signature Date Printed Name and Credentials Clinical Instructor Signature Printed Name and Credentials
--- NOTE | 2025-01-21 10:58 | ST.OPTN ---
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 Block. Patient had cervical spine fusion on October 25. Since that time she has had persistent difficulty swallowing. She states that recently it has been more persistent. She has to clear her throat frequently after eating. She has to make sure she eats small bites and potentially has to make sure she has enough to drink to make sure things go down properly. She struggles more with solids but still chokes on liquids as well. No prolonged cough. No fevers, chills. No respiratory distress. She has lost about 20 lb since her surgery but she was trying to be careful with her calories to facilitate some weight loss. She states she has to sit up very straight when eating and drinking, while taking small sips and bites and takes her pills one at a time. She utilizes a straw to gauge how much liquid she is consuming. Her goal for therapy is to increase ease of swallowing. Subjective Identification Type Name Observations/Patient Pt arrived on time to therapy. She utilized a cane to Presentation transfer to therapy room. Objective Treatment Activities Education/review of MBS results, handout provided on dysphagia HEP and ST provided education and a visual model how to complete exercises, ST educated Pt on going forward with therapy and POC. Assessment Patient Response to Excellent Treatment Rehab Potential Excellent Impairments Swallow Identified Assessment of Pt reports slight improvements with swallow, however Improvement states she continues to ensure she is taking small bites, sitting upright and alternating liquids/solids. ST reviewed MBS results and provided dysphagia HEP including: Leilani tongue exercise, effortful swallow and mendlesohn as well as Chin tuck against resistance (CTAR). Pt was able to demonstrate back with 100% accuracy. ST recommended Pt complete exercises 2-3x/day 10 reps each, except for CTAR recommending Pt complete 30 reps 2-3x/day and 1 minute holds 2-3x/day per Pt tolerance and to stop if any pain or discomfort occurs. Pt verbalized understanding. ST educated Pt on plan to initiate neuromuscular electrical stimulation (NMES) during next session. Pt compliant.
--- NOTE | 2025-01-28 14:24 | ST.OPTN ---
Visit Care Team Role Provider Type Higinio Block DO Attending Provider Physician Family Provider Primary Care Provider Referring Provider Address: [address] [place] [address], [address], [place], [address] CLOTH WORKER Treatment Note CLOTH WORKER Treatment Note Start: 01/21/25 10:24 Freq: Status: Active Protocol: Document 01/28/25 13:55 MA (Rec: 01/28/25 14:17 MA Desktop) Speech Pathology Treatment Note Session Time Visit Start Time 13:45 Visit Stop Time 14:15 Total Visit Minutes 30 Visit Information Visit Number 3 Plan of Care Dates 01/07/25-04/09/25 Setting Treatment Setting Outpatient Care General Information Patient History Pt is a 69 year old female who presents today for a swallow evaluation by the referral of Dr. Block. Patient had cervical spine fusion on October 25ly. Since that time she has had persistent difficulty swallowing. She states that recently it has been more persistent. She has to clear her throat frequently after eating. She has to make sure she eats small bites and potentially has to make sure she has enough to drink to make sure things go down properly. She struggles more with solids but still chokes on liquids as well. No prolonged cough. No fevers, chills. No respiratory distress. She has lost about 20 lb since her surgery but she was trying to be careful with her calories to facilitate some weight loss. She states she has to sit up very straight when eating and drinking, while taking small sips and bites and takes her pills one at a time. She utilizes a straw to gauge how much liquid she is consuming. Her goal for therapy is to increase ease of swallowing. Subjective Identification Type Name Observations/Patient Pt arrived on time to therapy. She utilized a cane to Presentation transfer to therapy room. Objective Treatment Activities ST facilitated Neuromuscular Electrical Stimulation ( NMES) in conjunction with PO trials and swallow exercises such as effortful swallow, Leilani Assessment Patient Response to Excellent Treatment Rehab Potential Excellent Impairments Swallow Identified Assessment of Pt reports slight improvements with swallow, however Improvement states she continues to ensure she is taking small bites, sitting upright and alternating liquids/solids. She reports swallow exercises in HEP have been helping. ST educated Pt on NMES with Pt compliant. Pt tolerated stim at a level 8.0mA with electrodes placed in the 3h position. Pt participated in NMES in conjunction with PO trials of regular solids, soft solids and thin liquids, and swallow exercises. Pt utilized effortful swallow with all swallows. For alejandra stewart Pt reported 2x globus sensation, however able to clear with liquid wash and effortful swallow. She reported 1x globus sensation of diced peaches. No overt s/s of aspiration such as coughing or choking. She completed 10 reps of Leilani exercise, however did not complete [place] d/t time. ST recommended Pt continue dysphagia HEP. Pt verbalized understanding.
--- NOTE | 2025-02-11 16:38 | ST-OP ANOTE ---
Physical, Occupational & Speech Therapy At [facility] Speech Therapy Note ACADEMIC SPECIALIST called Pt this date d/t Pt with no additional visits scheduled. She reports she has been doing her swallow exercises 2-3x/day and not having any swallow trouble and would like to be discharged from at this time. ST recommended she f/u with PCP if any changes occur.
--- NOTE | 2025-02-11 16:39 | ST.OPDC.SWTH ---
Visit Care Team Role Provider Type Higinio Block DO Attending Provider Physician Family Provider Primary Care Provider Referring Provider Specialty: Family Practice Address: [address] [place] [address], [address], [place], [address] Email: [email or web address] Pt discharged at this time per Pt request. She states she has been completing swallowing HEP and has seen improvements in swallow and is not having any swallow trouble at this time.
== END 2025-02-12 13:11 | disposition home or self-care (01) ==
LOC: SP 13:45
PROVIDERS: Family Provider Family Medicine; PCP Family Medicine; Referring Provider Family Medicine; Visit Provider Family Medicine
DX: R13.10 Dysphagia, unspecified (principal)
CPT/HCPCS: 92526; 92610

== ENCOUNTER → 2025-01-29 14:10 | Outpatient (CLI) | payer MEDICARE, SELFPAY ==
[2024-07-09 11:14] VITALS: BMI 35.6
== END ==
PROVIDERS: Family Provider Family Medicine; PCP Family Medicine; Referring Provider Family Medicine; Visit Provider Surgery
DX: T81.89XA Other complications of procedures, not elsewhere classified, initial encounter (principal); S11.90XA Unspecified open wound of unspecified part of neck, initial encounter; L98.8 Other specified disorders of the skin and subcutaneous tissue
CPT/HCPCS: 99212

== ENCOUNTER 2025-01-31 10:45 | Outpatient (RCR) | payer MEDICARE, SELFPAY ==
[2024-07-09 11:14] VITALS: BMI 35.6
--- NOTE | 2025-01-23 17:40 | PT.OIE ---
Addendum entered and electronically signed by Soraya Saez PT 01/23/25 17:41: PT direct supervision and direction to student PT Edwige Hunter throughout session Original Note: Current Diagnoses Arthrodesis status (01/23/25) Past Medical History (Last Reviewed 12/25/24 @ 15:09 by Kailey Cifuentes PA-C) Abnormal Pap smear of cervix (~1978) Benign essential HTN Bipolar disorder Cervical cancer Chicken pox Chronic pain CKD (chronic kidney disease) stage 3, GFR 30-59 ml/min Colon polyps Deep vein thrombosis Depression Diabetic peripheral neuropathy DVT of leg (deep venous thrombosis) Encounter for subsequent annual wellness visit (AWV) in Medicare patient Fractures Heavy menstrual period (~1970) Hemorrhoid (~1979) HTN (hypertension) Hyperlipidemia Hypothyroidism (~2009) Narcolepsy (~1999) Opiate dependence Peripheral neuropathy (~04/2022) Scoliosis TIA (transient ischemic attack) (~2017) Type 2 diabetes mellitus with complication, without long-term current use of insulin Vertigo (~1969) Past Surgical History (Last Reviewed 12/25/24 @ 15:09 by Kailey Cifuentes PA-C) Anesthesia History of bowel resection History of hysterectomy History of revision of total replacement of left hip joint History of total left hip replacement Hx of bilateral cataract extraction Hx of cholecystectomy Hx of colonoscopy Hx of ventral hernia repair S/P laparoscopy with lysis of adhesions Status post cervical spinal fusion Visit Care Team Role Provider Type Higinio Block DO Family Provider Physician Primary Care Provider Specialty: Family Practice Address: [address] [place] [address], [facility] Email: [email or web address] Attending Provider Non-Staff Referring Provider Specialty: Medical Address: [address] [place] [address], [facility] Email: Physical Therapy Initial Evaluation PT-OP-A Visit Information Start: 01/21/25 17:27 Freq: Status: Active Protocol: Document 01/23/25 11:35 GG (Rec: 01/23/25 12:42 GG Laptop) Out-Patient Physical Therapy Visit Information Visit Information Visit Type Initial Evaluation Visit Start Time 11:36 Visit Stop Time 12:20 Visit Number 1 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 October had cervical Condition fusion done, C2-T2 in the back and C4-C7 in the front. Numerous fusions d/t idiopathic scoliosis. Also fused from T6-sacrum that was done previously. She is also in for difficulty swallowing and talking for long periods of time and has had a MBS done recently. Experienced numbness and tingling prior to surgery, but that went away following. Notes that her neck muscles prevent her from raising her arms overhead and that is what she feels is limiting her most. Can't do her hair, get dressed. 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 Had a fall 4-5 weeks ago and landed on knee, pt says she chipped her kneecap. Pt finds that when she walks her head tends to fall forward and she doesn't know why, she says she shifted her hips more forward to compensate for that. payroll secretary told pt about vagus n. involvement. Constant pain in posterior neck, worsens w/ motion. 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 Sleeps about 2-3 hrs at a time during the night in a recliner, reports using cervical pillow prior to surgery but does not use it anymore d/t to back pain. Can't sleep on side or flat on back. Cont use of oxycodone, occ gabapentin at night , heating pad. Frequent weight changes d/t LE swelling, on furosemide to manage. Has surgeon f/u at end of March. Had a referral for wound care from PCP, but surgeon said wound care was not needed. Treatment Goals Patient/Caregiver using arms and lifting w/o issue, showering and doing Goals hair, getting dressed PT-OP-C Subjective Start: 01/21/25 17:27 Freq: Status: Active Protocol: Document 01/23/25 11:35 GG (Rec: 01/23/25 12:42 GG Laptop) Patient Questionnaires Neck Disability Index NDI Score 42% PT-OP-J Posture/Palpation/Skin Start: 01/21/25 17:27 Freq: Status: Active Protocol: Document 01/23/25 11:35 GG (Rec: 01/23/25 12:42 GG Laptop) Posture Evaluation Comments Posture Comments thoracic kyphosis, fwd head, R scapula more winged Skin Assessment Incisional Assessment Incision Appearance/ incision running from C1-T4, yellow blister at R Comments superior portion of incision, slightly broken w/ scab PT-OP-K Range of Motion Start: 01/21/25 17:27 Freq: Status: Active Protocol: Document 01/23/25 11:35 GG (Rec: 01/23/25 12:42 GG Laptop) Cervical Spine Range of Motion Cervical Spine Active Degrees Testing Position Sitting Flexion 25 Extension 8 Rotation Left 25 Rotation Right 23 Lateral Flexion Left 5 Lateral Flexion 10 Right Comments pain w/ all Shoulder Goniometric Range of Motion Shoulder Right Active Testing Position Sitting Flexion 73 Extension 55 Abduction 54 External Rotation at 35 0 degrees Abduction Internal Rotation T10 Behind Back (text) Comments combined ER to anterior shoulder Left Active Testing Position Sitting Flexion 94 Extension 61 Abduction 94 External Rotation at 35 0 degrees Abduction Internal Rotation T10 Behind Back (text) Comments combined ER to C2 PT-OP-M Strength Start: 01/21/25 17:27 Freq: Status: Active Protocol: Document 01/23/25 11:35 GG (Rec: 01/23/25 12:42 GG Laptop) Shoulder Strength Shoulder Manual Muscle Testing Right Extension 4- Good- External Rotation 3+ Fair+ Internal Rotation 4 Good Comments reports pain in neck Left Extension 4+ Good+ External Rotation 3+ Fair+ Internal Rotation 4 Good Comments pt reports pain in neck PT-OP-Q Treatments Start: 01/21/25 17:27 Freq: Status: Active Protocol: Document 01/23/25 11:35 GG (Rec: 01/23/25 12:42 GG Laptop) Therapeutic Exercises Sitting Exercises table slides Sitting Exercise flexion Name Side left Reps/Minutes 5x Comments cue for pain-free range Self-Care/Home Management Treatment Education Other Education Pt ed for using referral for wound care to assess blister and open wound at incision site and importance of ensuring proper skin integrity and hygiene. PT-OP-T Assessment and Plan Start: 01/21/25 17:27 Freq: Status: Active Protocol: Document 01/23/25 11:35 GG (Rec: 01/23/25 12:42 GG Laptop) Physical Therapy Assessment Rehab Potential Rehabilitation Good Potential Evaluation Complexity Number of Personal 3 or More Factors/ Comorbidities Number of Body 3 Systems Impaired Clinical Evolving Presentation at Evaluation Impairments Impairments Activity Tolerance,Balance,Coordination,Functional Activities,Functional Mobility,Pain,Posture,ROM,Soft Tissue Mobility,Strength Goals strength Short Term Goal (STG Pt will be indep in HEP. ) STG Duration 02/28/25 Last Dipper Goal (LTG) Pt will score at least a 4/5 on all testable B UE MMTs to show improved strength and better ability to hold camera. LTG Duration 04/03/25 ROM STG Duration 02/28/25 Last Dipper Goal (LTG) Pt will have at least 110 deg of B shoulder flexion, 120 deg of B ABD, and B combined ER to C7 for better ability to do hair. LTG Duration 04/03/25 activity Short Term Goal (STG Pt will be able to dress herself and shower w/o ) limitations from her shoulder. STG Duration 02/28/25 Last Dipper Goal (LTG) Pt will be able to hold camera w/o pain exceeding a 2/ 10 after a shoot. LTG Duration 04/03/25 NDI Impairment 42% Short Term Goal (STG Pt will score at least a 32% on NDI to show improved ) function. STG Duration 02/28/25 Fci Goal (LTG) Pt will score at least a 22% on NDI to show improved function. LTG Duration 04/03/25 Assessment Summary Assessment Nicole presents to PT 3 months s/p spinal fusion from C2 -T2 posteriorly and C4-C7 anteriorly, as well as hx of thoracic and lumbar fusions. 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 Pt also has some disruptions to skin integrity along the posterior incision site which was assessed and pt encouraged to f/u w/ wound care. Pt would benefit from PT to work at the shoulder and scapula to regain some ROM and reduce symptoms w/ movement to allow for better ability to do hair and use her camera. Physical Therapy Plan Frequency and Duration Frequency of 2x/Week Treatment Duration of 10 treatment (weeks) Plan of Care Start 01/23/25 Date Plan of Care End 04/03/25 Date Therapeutic Interventions Therapeutic Balance Training,Coordination Training,Home Exercise Interventions Program,Joint Mobilizations,Manual Therapy, Neuromuscular Re-education,Patient/Caregiver Education, Self-Care/Home Management,Soft Tissue Mobilization, Taping,Therapeutic Activities,Therapeutic Exercises Modalities Electric Stimulation,Hot Packs,Infrared Therapy, Iontophoresis,Ultrasound Next Visit Focus/Plan Next Note Type Treatment Note Next Visit Plan f/u wound care referral and wound at incision site and HEP (table slides in flexion and ABD), manual for shoulder/scap, scar tissue mobs, STM CS paraspinal and assess at soft tissue mobility at shoulder, cranial nerve exam
--- NOTE | 2025-01-23 17:40 | PT.OPPOC ---
Physical, Occupational & Speech Therapy At [facility] Current Diagnoses Arthrodesis status (01/23/25) Visit Care Team Role Provider Type Higinio Block DO Family Provider Physician Primary Care Provider Specialty: Family Practice Address: [address] [place] [address], [address], [place], [address] Email: Pancho Joyce MD Attending Provider Non-Staff Referring Provider Specialty: Medical Address: [address] [place] [address], [id number] Email: Plan Of Care PT-OP-B Current Condition Start: 01/21/25 17:27 Freq: Status: Active Protocol: Document 01/23/25 11:35 GG (Rec: 01/23/25 12:42 GG Laptop) Current Condition History of Current Condition Onset Date October 25, 2024 Current Complaints neck and shoulder pain History of Current Hx of 27 surgeries since 2014. October had cervical Condition fusion done, C2-T2 in the back and C4-C7 in the front. Numerous fusions d/t idiopathic scoliosis. Also fused from T6-sacrum that was done previously. She is also in for difficulty swallowing and talking for long periods of time and has had a MBS done recently. Experienced numbness and tingling prior to surgery, but that went away following. Notes that her neck muscles prevent her from raising her arms overhead and that is what she feels is limiting her most. Can't do her hair, get dressed. 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 Had a fall 4-5 weeks ago and landed on knee, pt says she chipped her kneecap. Pt finds that when she walks her head tends to fall forward and she doesn't know why, she says she shifted her hips more forward to compensate for that. product support technician told pt about vagus n. involvement. Constant pain in posterior neck, worsens w/ motion. 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 Sleeps about 2-3 hrs at a time during the night in a recliner, reports using cervical pillow prior to surgery but does not use it anymore d/t to back pain. Can't sleep on side or flat on back. Cont use of oxycodone, occ gabapentin at night , heating pad. Frequent weight changes d/t LE swelling, on furosemide to manage. Has surgeon f/u at end of March. Had a referral for wound care from PCP, but surgeon said wound care was not needed. Treatment Goals Patient/Caregiver using arms and lifting w/o issue, showering and doing Goals hair, getting dressed PT-OP-T Assessment and Plan Start: 01/21/25 17:27 Freq: Status: Active Protocol: Document 01/23/25 11:35 GG (Rec: 01/23/25 12:42 GG Laptop) Physical Therapy Assessment Rehab Potential Rehabilitation Good Potential Evaluation Complexity Number of Personal 3 or More Factors/ Comorbidities Number of Body 3 Systems Impaired Clinical Evolving Presentation at Evaluation Impairments Impairments Activity Tolerance,Balance,Coordination,Functional Activities,Functional Mobility,Pain,Posture,ROM,Soft Tissue Mobility,Strength Goals strength Short Term Goal (STG Pt will be indep in HEP. ) STG Duration 02/28/25 Residential Goal (LTG) Pt will score at least a 4/5 on all testable B UE MMTs to show improved strength and better ability to hold camera. 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 LTG Duration 04/03/25 activity Short Term Goal (STG Pt will be able to dress herself and shower w/o ) limitations from her shoulder. 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 LTG Duration 04/03/25 NDI Impairment 42% Short Term Goal (STG Pt will score at least a 32% on NDI to show improved ) function. STG Duration 02/28/25 Residential Goal (LTG) Pt will score at least a 22% on NDI to show improved function. LTG Duration 04/03/25 Assessment Summary Assessment Nicole presents to PT 3 months s/p spinal fusion from C2 -T2 posteriorly and C4-C7 anteriorly, as well as hx of thoracic and lumbar fusions. 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 Pt also has some disruptions to skin integrity along the posterior incision site which was assessed and pt encouraged to f/u w/ wound care. Pt would benefit from PT to work at the shoulder and scapula to regain some ROM and reduce symptoms w/ movement to allow for better ability to do hair and use her camera. Physical Therapy Plan Frequency and Duration Frequency of 2x/Week Treatment Duration of 10 treatment (weeks) Plan of Care Start 01/23/25 Date Plan of Care End 04/03/25 Date Therapeutic Interventions Therapeutic Balance Training,Coordination Training,Home Exercise Interventions Program,Joint Mobilizations,Manual Therapy, Neuromuscular Re-education,Patient/Caregiver Education, Self-Care/Home Management,Soft Tissue Mobilization, Taping,Therapeutic Activities,Therapeutic Exercises Modalities Electric Stimulation,Hot Packs,Infrared Therapy, Iontophoresis,Ultrasound Next Visit Focus/Plan Next Note Type Treatment Note Next Visit Plan f/u wound care referral and wound at incision site and HEP (table slides in flexion and ABD), manual for shoulder/scap, scar tissue mobs, STM CS paraspinal and assess at soft tissue mobility at shoulder, cranial nerve exam Plan of Care Dates Plan of Care Start Date 01/23/25 Plan of Care End Date 04/03/25 Electronically Signed by: Edwige Hunter 01/23/25 9713 If you are in agreement with this Plan of Care, please return a signed and dated copy. I have reviewed this Plan of Care and certify that the skilled therapy services above are required to meet the patient?s needs. Physician Signature Date Printed Name and Credentials Clinical Instructor Signature Printed Name and Credentials
--- NOTE | 2025-01-29 13:51 | PT.OTN ---
Current Diagnoses Arthrodesis status (01/29/25) Physical Therapy Treatment Note PT-OP-A Visit Information Start: 01/21/25 17:27 Freq: Status: Active Protocol: Document 01/29/25 13:03 SP (Rec: 01/29/25 13:21 SP [id number]) Out-Patient Physical Therapy Visit Information Visit Information Visit Type Treatment Note Visit Start Time 13:03 Visit Stop Time 13:51 Visit Number 2 Number of MOBILE SALES TECHNICIAN Visits 1 Precautions Precautions avoid open wound at superior incision site near base of skull PT-OP-B Current Condition Start: 01/21/25 17:27 Freq: Status: Active Protocol: Document 01/23/25 11:35 GG (Rec: 01/23/25 12:42 GG Laptop) Current Condition History of Current Condition Onset Date October 25, 2024 Current Complaints neck and shoulder pain History of Current Hx of 27 surgeries since 2014. October had cervical Condition fusion done, C2-T2 in the back and C4-C7 in the front. Numerous fusions d/t idiopathic scoliosis. Also fused from T6-sacrum that was done previously. She is also in for difficulty swallowing and talking for long periods of time and has had a MBS done recently. Experienced numbness and tingling prior to surgery, but that went away following. Notes that her neck muscles prevent her from raising her arms overhead and that is what she feels is limiting her most. Can't do her hair, get dressed. 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 Had a fall 4-5 weeks ago and landed on knee, pt says she chipped her kneecap. Pt finds that when she walks her head tends to fall forward and she doesn't know why, she says she shifted her hips more forward to compensate for that. drug worker told pt about vagus n. involvement. Constant pain in posterior neck, worsens w/ motion. 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 Sleeps about 2-3 hrs at a time during the night in a recliner, reports using cervical pillow prior to surgery but does not use it anymore d/t to back pain. Can't sleep on side or flat on back. Cont use of oxycodone, occ gabapentin at night , heating pad. Frequent weight changes d/t LE swelling, on furosemide to manage. Has surgeon f/u at end of March. Had a referral for wound care from PCP, but surgeon said wound care was not needed. Treatment Goals Patient/Caregiver using arms and lifting w/o issue, showering and doing Goals hair, getting dressed PT-OP-C Subjective Start: 01/21/25 17:27 Freq: Status: Active Protocol: Document 01/29/25 13:03 SP (Rec: 01/29/25 13:21 SP [id number]) OP-PT Subjective Patient Comments Patient Comments Pt reports can't lay down due to rods spine so sleeps in recliner only. Table slide doing well. PT is being seen by wound care. PT-OP-J Posture/Palpation/Skin Start: 01/21/25 17:27 Freq: Status: Active Protocol: Document 01/23/25 11:35 GG (Rec: 01/23/25 12:42 GG Laptop) Posture Evaluation Comments Posture Comments thoracic kyphosis, fwd head, R scapula more winged Skin Assessment Incisional Assessment Incision Appearance/ incision running from C1-T4, yellow blister at R Comments superior portion of incision, slightly broken w/ scab PT-OP-K Range of Motion Start: 01/21/25 17:27 Freq: Status: Active Protocol: Document 01/23/25 11:35 GG (Rec: 01/23/25 12:42 GG Laptop) Cervical Spine Range of Motion Cervical Spine Active Degrees Testing Position Sitting Flexion 25 Extension 8 Rotation Left 25 Rotation Right 23 Lateral Flexion Left 5 Lateral Flexion 10 Right Comments pain w/ all Shoulder Goniometric Range of Motion Shoulder Right Active Testing Position Sitting Flexion 73 Extension 55 Abduction 54 External Rotation at 35 0 degrees Abduction Internal Rotation T10 Behind Back (text) Comments combined ER to anterior shoulder Left Active Testing Position Sitting Flexion 94 Extension 61 Abduction 94 External Rotation at 35 0 degrees Abduction Internal Rotation T10 Behind Back (text) Comments combined ER to C2 PT-OP-M Strength Start: 01/21/25 17:27 Freq: Status: Active Protocol: Document 01/23/25 11:35 GG (Rec: 01/23/25 12:42 GG Laptop) Shoulder Strength Shoulder Manual Muscle Testing Right Extension 4- Good- External Rotation 3+ Fair+ Internal Rotation 4 Good Comments reports pain in neck Left Extension 4+ Good+ External Rotation 3+ Fair+ Internal Rotation 4 Good Comments pt reports pain in neck PT-OP-Q Treatments Start: 01/21/25 17:27 Freq: Status: Active Protocol: Document 01/29/25 13:03 SP (Rec: 01/29/25 13:21 SP [id number]) Therapeutic Exercises Sitting Exercises Pulleys Sitting Exercise trialed in PT: FF, Abduction (might get for home) Name Resistance LUE help RUE Reps/Minutes 10 reps each direction Comments good feedback response- painfree range- pic provided with over door hook table slides Sitting Exercise Review: flexion, abduction, added HABD<>HADD Name Side right Resistance AAROM Equipment Used arm in pillowcase on table Reps/Minutes 10 (3 sets 3-4 daily home) Comments good form and pain-free range, cued slow pause end feel gentle stretch Standing Exercises pec stretch Standing Exercise trialed in PT- 1 arm at time- forgot give HO Name Side bilateral Resistance R>L hand on doorframe Reps/Minutes 20 SHx2 Comments reports single at time better, hurts B shld jt with limited range Mitch. Other Exercises self STMS Other Exercise Name parascapular and posterior neck- added to HEP with HO for self massage Resistance theracane posterior neck- MWM head nods turns Equipment Used ball in sock rolling posterior scap at wall standing, Comments good feedback response Manual Therapy Treatment Consent Patient gave verbal Yes consent for manual treatment Soft Tissue Mobilization R shld Body Location UT, LS, parascapular mm, infra sp, suprasp, Teres Comments STMs and ed self use ball on wall in sock/pillowcase and theracane head nods/turns Joint Mobilizations R scapulothoracic Jt Joint AAROM manual Direction superior/depression/retraction/protraction/posterior rolls Grade II Comments BIG chair- flip up chair arms Cues for posterior rolls - improved decreased posterior scap pain/tightness PT-OP-T Assessment and Plan Start: 01/21/25 17:27 Freq: Status: Active Protocol: Document 01/29/25 13:03 SP (Rec: 01/29/25 13:21 SP [id number]) Physical Therapy Assessment Goals strength Short Term Goal (STG Pt will be indep in HEP. ) STG Duration 02/28/25 Airway Traffic Controller Goal (LTG) Pt will score at least a 4/5 on all testable B UE MMTs to show improved strength and better ability to hold camera. 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 LTG Duration 04/03/25 activity Short Term Goal (STG Pt will be able to dress herself and shower w/o ) limitations from her shoulder. 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 LTG Duration 04/03/25 NDI Impairment 42% Short Term Goal (STG Pt will score at least a 32% on NDI to show improved ) function. STG Duration 02/28/25 Airway Traffic Controller Goal (LTG) Pt will score at least a 22% on NDI to show improved function. LTG Duration 04/03/25 Assessment Summary Assessment Pt improved scapular thoracic mobility on R post manual and instructed ther ex. Initiated pulleys and self STMs for posterior neck and parascapular mms with HO for self feedback can get items for home found very beneficial in PT decreased pain and progress assisted R shld ROM. She stated will use ball on wall and purchase theracane for self massage found very helpful today to continue for home. Physical Therapy Plan Frequency and Duration Frequency of 2x/Week Treatment Duration of 10 treatment (weeks) Plan of Care Start 01/23/25 Date Plan of Care End 04/03/25 Date Therapeutic Interventions Therapeutic Balance Training,Coordination Training,Home Exercise Interventions Program,Joint Mobilizations,Manual Therapy, Neuromuscular Re-education,Patient/Caregiver Education, Self-Care/Home Management,Soft Tissue Mobilization, Taping,Therapeutic Activities,Therapeutic Exercises Modalities Electric Stimulation,Hot Packs,Infrared Therapy, Iontophoresis,Ultrasound Next Visit Focus/Plan Next Note Type Treatment Note Next Visit Plan Recheck self STMs if able do home, HEP (table slides in flexion, ABD, HABD/HADD), POC: manual for shoulder/scap, scar tissue mobs, STM CS paraspinal and assess at soft tissue mobility at shoulder, PT next tx cranial nerve exam
--- NOTE | 2025-01-31 11:35 | PT.OTN ---
Current Diagnoses Arthrodesis status (01/31/25) Physical Therapy Treatment Note PT-OP-A Visit Information Start: 01/21/25 17:27 Freq: Status: Active Protocol: Document 01/31/25 10:49 SP (Rec: 01/31/25 11:38 SP [id number]) Out-Patient Physical Therapy Visit Information Visit Information Visit Type Treatment Note Visit Start Time 10:49 Visit Stop Time 11:35 Visit Number 3 Number of DIRECTOR OF SOCIAL MEDIA MARKETING Visits 2 Precautions Precautions avoid open wound at superior incision site near base of skull PT-OP-B Current Condition Start: 01/21/25 17:27 Freq: Status: Active Protocol: Document 01/23/25 11:35 GG (Rec: 01/23/25 12:42 GG Laptop) Current Condition History of Current Condition Onset Date October 25, 2024 Current Complaints neck and shoulder pain History of Current Hx of 27 surgeries since 2014. October had cervical Condition fusion done, C2-T2 in the back and C4-C7 in the front. Numerous fusions d/t idiopathic scoliosis. Also fused from T6-sacrum that was done previously. She is also in for difficulty swallowing and talking for long periods of time and has had a MBS done recently. Experienced numbness and tingling prior to surgery, but that went away following. Notes that her neck muscles prevent her from raising her arms overhead and that is what she feels is limiting her most. Can't do her hair, get dressed. 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 Had a fall 4-5 weeks ago and landed on knee, pt says she chipped her kneecap. Pt finds that when she walks her head tends to fall forward and she doesn't know why, she says she shifted her hips more forward to compensate for that. engineering intern told pt about vagus n. involvement. Constant pain in posterior neck, worsens w/ motion. 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 Sleeps about 2-3 hrs at a time during the night in a recliner, reports using cervical pillow prior to surgery but does not use it anymore d/t to back pain. Can't sleep on side or flat on back. Cont use of oxycodone, occ gabapentin at night , heating pad. Frequent weight changes d/t LE swelling, on furosemide to manage. Has surgeon f/u at end of March. Had a referral for wound care from PCP, but surgeon said wound care was not needed. Treatment Goals Patient/Caregiver using arms and lifting w/o issue, showering and doing Goals hair, getting dressed PT-OP-C Subjective Start: 01/21/25 17:27 Freq: Status: Active Protocol: Document 01/31/25 10:49 SP (Rec: 01/31/25 11:38 SP [id number]) OP-PT Subjective Patient Comments Patient Comments Pt reports got her pulleys, theracane, ball for self HEP compliance and feeling more mobilily. Is really stiff in R shld today, R shld moy home little comfortable/stiff, not as good as when in PT last. Pt's rounded posture very forward protracted and depressed R scapular complex at arrival (alot more than previous tx). PT-OP-J Posture/Palpation/Skin Start: 01/21/25 17:27 Freq: Status: Active Protocol: Document 01/23/25 11:35 GG (Rec: 01/23/25 12:42 GG Laptop) Posture Evaluation Comments Posture Comments thoracic kyphosis, fwd head, R scapula more winged Skin Assessment Incisional Assessment Incision Appearance/ incision running from C1-T4, yellow blister at R Comments superior portion of incision, slightly broken w/ scab PT-OP-K Range of Motion Start: 01/21/25 17:27 Freq: Status: Active Protocol: Document 01/23/25 11:35 GG (Rec: 01/23/25 12:42 GG Laptop) Cervical Spine Range of Motion Cervical Spine Active Degrees Testing Position Sitting Flexion 25 Extension 8 Rotation Left 25 Rotation Right 23 Lateral Flexion Left 5 Lateral Flexion 10 Right Comments pain w/ all Shoulder Goniometric Range of Motion Shoulder Right Active Testing Position Sitting Flexion 73 Extension 55 Abduction 54 External Rotation at 35 0 degrees Abduction Internal Rotation T10 Behind Back (text) Comments combined ER to anterior shoulder Left Active Testing Position Sitting Flexion 94 Extension 61 Abduction 94 External Rotation at 35 0 degrees Abduction Internal Rotation T10 Behind Back (text) Comments combined ER to C2 PT-OP-M Strength Start: 01/21/25 17:27 Freq: Status: Active Protocol: Document 01/23/25 11:35 GG (Rec: 01/23/25 12:42 GG Laptop) Shoulder Strength Shoulder Manual Muscle Testing Right Extension 4- Good- External Rotation 3+ Fair+ Internal Rotation 4 Good Comments reports pain in neck Left Extension 4+ Good+ External Rotation 3+ Fair+ Internal Rotation 4 Good Comments pt reports pain in neck PT-OP-Q Treatments Start: 01/21/25 17:27 Freq: Status: Active Protocol: Document 01/31/25 10:49 SP (Rec: 01/31/25 11:38 SP [id number]) Therapeutic Exercises Sitting Exercises Scapular Retractions Sitting Exercise added to HEP with HO (manual then instructed self) Name Side bilateral Resistance (standing then seated) Equipment Used Pool noodle along spine Reps/Minutes 10 reps each Comments good feedback with tactile LT feedback, hands clasped over top abdomen Pulleys Sitting Exercise trialed in PT: FF, Abduction (might get for home) Name Resistance LUE help RUE Reps/Minutes 10 reps each direction Comments good feedback response- painfree range- pic provided with over door hook table slides Sitting Exercise Review: flexion, abduction, added HABD<>HADD Name Side right Resistance AAROM Equipment Used arm in pillowcase on table Reps/Minutes 10 (performing 3 sets 3-4 daily home) Comments good form and pain-free range, cued slow pause end feel gentle stretch Standing Exercises Wall Scapular pushups (protraction) Standing Exercise aded to HEP with HO Name Side bilateral Resistance AROM very Small range Reps/Minutes 5x2 sets Comments tactile cue elbows straight- scap pushups, LT on R emphasis Other Exercises self STMS Other Exercise Name neck- reviewed Resistance theracane posterior neck- MWM head nods turns Comments good feedback response Manual Therapy Treatment Consent Patient gave verbal Yes consent for manual treatment Soft Tissue Mobilization R shld Body Location UT, LS, parascapular mm, infra sp, suprasp, Teres Body Position seated Comments STMs and ed self use ball on wall in sock/pillowcase and theracane head nods/turns Joint Mobilizations R scapulothoracic Jt Joint AAROM manual Direction superior/depression/retraction/protraction/posterior rolls Grade II Reps/Duration seated Comments BIG chair- flip up chair arms Cues for posterior rolls - improved decreased posterior scap pain/tightness Tactile fac scapular retractions with LT emphasis today 01/31 PT-OP-T Assessment and Plan Start: 01/21/25 17:27 Freq: Status: Active Protocol: Document 01/31/25 10:49 SP (Rec: 01/31/25 11:38 SP [id number]) Physical Therapy Assessment Goals strength Short Term Goal (STG Pt will be indep in HEP. ) STG Duration 02/28/25 Mica Spreader Goal (LTG) Pt will score at least a 4/5 on all testable B UE MMTs to show improved strength and better ability to hold camera. LTG Duration 04/03/25 ROM STG Duration 02/28/25 Mica Spreader Goal (LTG) Pt will have at least 110 deg of B shoulder flexion, 120 deg of B ABD, and B combined ER to C7 for better ability to do hair. LTG Duration 04/03/25 activity Short Term Goal (STG Pt will be able to dress herself and shower w/o ) limitations from her shoulder. 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 LTG Duration 04/03/25 NDI Impairment 42% Short Term Goal (STG Pt will score at least a 32% on NDI to show improved ) function. STG Duration 02/28/25 Mica Spreader Goal (LTG) Pt will score at least a 22% on NDI to show improved function. LTG Duration 04/03/25 Assessment Summary Assessment Pt improved scapulothoracic mobility on R postmanual, tactile rhomboid and LT retractions with noodle behind spine wall>chair. Incorporated scap retractions seated then scapular protraction/retraction on wall for HEP with HO. Good res ponse to manual and ed self theracane . Recheck theracane performance. Ed do scap rolls, retraction with noodle and wall pushups before moy and table slide for improved mobiltiy alignment improved by end tx. Physical Therapy Plan Frequency and Duration Frequency of 2x/Week Treatment Duration of 10 treatment (weeks) Plan of Care Start 01/23/25 Date Plan of Care End 04/03/25 Date Therapeutic Interventions Therapeutic Balance Training,Coordination Training,Home Exercise Interventions Program,Joint Mobilizations,Manual Therapy, Neuromuscular Re-education,Patient/Caregiver Education, Self-Care/Home Management,Soft Tissue Mobilization, Taping,Therapeutic Activities,Therapeutic Exercises Modalities Electric Stimulation,Hot Packs,Infrared Therapy, Iontophoresis,Ultrasound Next Visit Focus/Plan Next Note Type Treatment Note Next Visit Plan Recheck HEP POC: manual for shoulder/scap, scar tissue mobs, STM CS paraspinal and assess at soft tissue mobility at shoulder, PT next tx cranial nerve exam
--- NOTE | 2025-02-05 11:02 | PT-OP ANOTE ---
Per [employer] pt had called therapies this morning to cancel due to being sick, possibly with COVID.
--- NOTE | 2025-02-24 10:44 | PT.OPDS ---
Current Diagnoses Arthrodesis status (01/31/25) Visit Care Team Role Provider Type Higinio Block DO Family Provider Physician Primary Care Provider Specialty: Family Practice Address: [address] [place] [address], [address], [place], [address] Email: [email or web address] Pancho Joyce MD Attending Provider Non-Staff Referring Provider Specialty: Medical Address: [address] [place] [address], [place], [address] Email: Visit Number Visit Number 3 Discharge Summary PT-OP-B Current Condition Start: 01/21/25 17:27 Freq: Status: Active Protocol: Document 01/23/25 11:35 GG (Rec: 01/23/25 12:42 GG Laptop) Current Condition History of Current Condition Onset Date October 25, 2024 Current Complaints neck and shoulder pain History of Current Hx of 27 surgeries since 2014. October had cervical Condition fusion done, C2-T2 in the back and C4-C7 in the front. Numerous fusions d/t idiopathic scoliosis. Also fused from T6-sacrum that was done previously. She is also in for difficulty swallowing and talking for long periods of time and has had a MBS done recently. Experienced numbness and tingling prior to surgery, but that went away following. Notes that her neck muscles prevent her from raising her arms overhead and that is what she feels is limiting her most. Can't do her hair, get dressed. 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 Had a fall 4-5 weeks ago and landed on knee, pt says she chipped her kneecap. Pt finds that when she walks her head tends to fall forward and she doesn't know why, she says she shifted her hips more forward to compensate for that. bisque grader told pt about vagus n. involvement. Constant pain in posterior neck, worsens w/ motion. 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 Sleeps about 2-3 hrs at a time during the night in a recliner, reports using cervical pillow prior to surgery but does not use it anymore d/t to back pain. Can't sleep on side or flat on back. Cont use of oxycodone, occ gabapentin at night , heating pad. Frequent weight changes d/t LE swelling, on furosemide to manage. Has surgeon f/u at end of March. Had a referral for wound care from PCP, but surgeon said wound care was not needed. Treatment Goals Patient/Caregiver using arms and lifting w/o issue, showering and doing Goals hair, getting dressed PT-OP-C Subjective Start: 01/21/25 17:27 Freq: Status: Active Protocol: Document 01/31/25 10:49 SP (Rec: 01/31/25 11:38 SP [id number]) OP-PT Subjective Patient Comments Patient Comments Pt reports got her pulleys, theracane, ball for self HEP compliance and feeling more mobilily. Is really stiff in R shld today, R shld moy home little comfortable/stiff, not as good as when in PT last. Pt's rounded posture very forward protracted and depressed R scapular complex at arrival (alot more than previous tx). PT-OP-J Posture/Palpation/Skin Start: 01/21/25 17:27 Freq: Status: Active Protocol: Document 01/23/25 11:35 GG (Rec: 01/23/25 12:42 GG Laptop) Posture Evaluation Comments Posture Comments thoracic kyphosis, fwd head, R scapula more winged Skin Assessment Incisional Assessment Incision Appearance/ incision running from C1-T4, yellow blister at R Comments superior portion of incision, slightly broken w/ scab PT-OP-K Range of Motion Start: 01/21/25 17:27 Freq: Status: Active Protocol: Document 01/23/25 11:35 GG (Rec: 01/23/25 12:42 GG Laptop) Cervical Spine Range of Motion Cervical Spine Active Degrees Testing Position Sitting Flexion 25 Extension 8 Rotation Left 25 Rotation Right 23 Lateral Flexion Left 5 Lateral Flexion 10 Right Comments pain w/ all Shoulder Goniometric Range of Motion Shoulder Right Active Testing Position Sitting Flexion 73 Extension 55 Abduction 54 External Rotation at 35 0 degrees Abduction Internal Rotation T10 Behind Back (text) Comments combined ER to anterior shoulder Left Active Testing Position Sitting Flexion 94 Extension 61 Abduction 94 External Rotation at 35 0 degrees Abduction Internal Rotation T10 Behind Back (text) Comments combined ER to C2 PT-OP-M Strength Start: 01/21/25 17:27 Freq: Status: Active Protocol: Document 01/23/25 11:35 GG (Rec: 01/23/25 12:42 GG Laptop) Shoulder Strength Shoulder Manual Muscle Testing Right Extension 4- Good- External Rotation 3+ Fair+ Internal Rotation 4 Good Comments reports pain in neck Left Extension 4+ Good+ External Rotation 3+ Fair+ Internal Rotation 4 Good Comments pt reports pain in neck PT-OP-T Assessment and Plan Start: 01/21/25 17:27 Freq: Status: Active Protocol: Document 02/24/25 10:43 [facility] (Rec: 02/24/25 10:44 [facility] [id number]) Physical Therapy Assessment Goals strength Short Term Goal (STG Pt will be indep in HEP. ) STG Duration 02/28/25 [facility] Goal (LTG) Pt will score at least a 4/5 on all testable B UE MMTs to show improved strength and better ability to hold camera. 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 LTG Duration 04/03/25 activity Short Term Goal (STG Pt will be able to dress herself and shower w/o ) limitations from her shoulder. 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 LTG Duration 04/03/25 NDI Impairment 42% Short Term Goal (STG Pt will score at least a 32% on NDI to show improved ) function. STG Duration 02/28/25 Soft Work Wrapper Layer And Examiner Goal (LTG) Pt will score at least a 22% on NDI to show improved function. LTG Duration 04/03/25 Assessment Summary Assessment On 02/21/25 @ 10:44 Hebert Alba Wrote To Soraya Saez Patient called to state that she is doing much better and is ready to be discharged. Pt seen for IE and 2 follow ups in January and has not been seen in about a month d/t cancellations. DC d/t pt request Physical Therapy Plan Discharge Physical Therapy Discharge Reasons Patient Request
== END 2025-02-26 11:28 | disposition home or self-care (01) ==
LOC: PHYS 10:45
PROVIDERS: Family Provider Family Medicine; PCP Family Medicine; Referring Provider Orthopaedic Surgery; Visit Provider Orthopaedic Surgery
DX: Z98.1 Arthrodesis status (principal)
CPT/HCPCS: 97110; 97140; 97162; 97535

== ENCOUNTER → 2025-01-31 10:53 | Outpatient (CLI) | payer MEDICARE, SELFPAY ==
[2024-07-09 11:14] VITALS: BMI 35.6
== END ==
PROVIDERS: Family Provider Family Medicine; PCP Family Medicine; Referring Provider Family Medicine; Visit Provider Nurse Practitioner Family
DX: T81.89XA Other complications of procedures, not elsewhere classified, initial encounter (principal); S11.90XA Unspecified open wound of unspecified part of neck, initial encounter
CPT/HCPCS: 99213

== ENCOUNTER → 2025-02-03 15:09 | Outpatient (CLI) | payer MEDICARE, SELFPAY ==
[2024-07-09 11:14] VITALS: BMI 35.6
== END ==
LOC: WC 15:10
PROVIDERS: Family Provider Family Medicine; PCP Family Medicine; Referring Provider Family Medicine; Visit Provider Surgery
DX: T81.31XD Disruption of external operation (surgical) wound, not elsewhere classified, subsequent encounter (principal); S11.89XD Other open wound of other specified part of neck, subsequent encounter; E11.622 Type 2 diabetes mellitus with other skin ulcer
CPT/HCPCS: 99212; 99213

== ENCOUNTER 2025-04-13 08:38 | Emergency (ER) | payer MEDICARE, SELFPAY ==
[2024-07-09 11:14] VITALS: BMI 35.6
[2025-04-13] VITALS (11 sets, daily range): BP systolic 137–147; BP diastolic 86–95; PULSE 77–141; RESP 17–40; TEMP 36.8; O2SAT 95–97; BMI 32.5
--- NOTE | 2025-04-13 08:46 | ED_ITS ---
HPI - General Adult General Chief complaint: Weakness Stated complaint: failure to thrive/weakness Time Seen by Provider: 04/13/25 08:45 Source: patient, EMS, RN notes reviewed and old records reviewed Mode of arrival: EMS Limitations: no limitations History of Present Illness HPI narrative: 69-year-old female history of atrial fibrillation on Eliquis and amlodipine, hypothyroidism, dyslipidemia, chronic pain with history of rods and screws from C2 to her sacrum scoliosis, and history of alcohol use. Patient presents with complaint of generalized weakness. Patient states she quit drinking about 10 days ago was drinking about a half bottle of vodka daily. She states she went through DTs for a day or 2 not improved patient states she has since then become progressively weaker and had difficulty getting around her home. She describes it as generalized and not lateralized or localized weakness. She denies headache. Denies fevers. No chest pain. She has got some mild shortness of breath. States her nose has been stuffed. She denies any cough. Patient states no nausea or vomiting. She states she has been constipated for the last 5 days but passing gas regularly. She notes that her urine has been dark and she is passing small amounts frequently she does not feel like that she is urinating as much as she typically does. She does not feel like she is retaining any urine. Patient states home medications include Eliquis, amlodipine, oxycodone 10 mg q.i.d. which she has not had for the past 5 days, levothyroxine, fenofibrate, gabapentin, Lasix, potassium. Patient states she has had a prior hip repair x3, she has had rods and screws from C2-T5 and T6 to her sacrum, no prior cardiac or pulmonary surgeries. Quit tobacco in 2014, quit alcohol 10 days ago, no recreational drugs. Dr. Block is her primary care physician. Related Data Home Medications ?Medication ?Instructions ?Recorded ?Confirmed lidocaine 5 % topical patch 1 patch topical PRN 04/13/25 (Lidoderm) Previous Rx's ?Medication ?Instructions ?Recorded Disabled Parking Permit #1 ea 05/07/24 empagliflozin 10 mg tablet 10 mg PO DAILY #90 tabs (Jardiance) amlodipine 10 mg tablet (Norvasc) 10 mg PO DAILY #90 t abs 09/20/24 levothyroxine 112 mcg tablet See Rx Instructions .Rout e 09/23/24 .COMPLEX #90 tabs furosemide 20 mg tablet (Lasix) 20 mg PO DAILY PRN alfonzo ma #90 tabs 10/25/24 potassium chloride 20 mEq 20 meq PO DAILY #30 tabs tablet,extended release(part/cryst) gabapentin 300 mg capsule 300 mg PO TID PRN nerve pain #60 12/25/24 caps fenofibrate 160 mg tablet 160 mg PO DAILY for choleste rol 01/02/25 #90 tabs apixaban 5 mg tablet (Eliquis) 5 mg PO BID #180 tabs 0 02/18/25 oxycodone 10 mg tablet 10 mg PO Q8H PRN pain #90 ta bs 03/17/25 oxycodone 10 mg tablet 10 mg PO TID PRN pain #90 ta bs 03/17/25 oxycodone 10 mg tablet 10 mg PO TID PRN pain #90 ta bs 03/17/25 cephalexin 500 mg capsule 500 mg PO Q8H 7 days #21 cap s 04/13/25 Allergies Allergy/AdvReac Type Severity Reaction Status Date / Time Sulfa (Sulfonamide Allergy Severe Anaphylaxis Verified 04/13/25 08:42 Antibiotics) marijuana (cannabis) Allergy Anaphylaxis Verified 04/13/25 08:42 acetaminophen AdvReac Mild Vomiting Verified 04/13/25 08:42 NSAIDS (Non-Steroidal AdvReac Mild GI Upset Verified 04/13/25 08:42 Anti-Inflamma Review of Systems Review of Systems ROS Unobtainable: All systems reviewed & are unremarkable except as noted in HPI and below Patient History Medical History Scoliosis HTN (hypertension) Bipolar disorder DVT of leg (deep venous thrombosis) Opiate dependence Encounter for subsequent annual wellness visit (AWV) in Medicare patient Diabetic peripheral neuropathy Type 2 diabetes mellitus with complication, without long-term current use of insulin Hyperlipidemia CKD (chronic kidney disease) stage 3, GFR 30-59 ml/min Narcolepsy (~1999) Depression TIA (transient ischemic attack) (~2017) Peripheral neuropathy (~04/2022) Fractures Chicken pox Vertigo (~1969) Heavy menstrual period (~1970) Abnormal Pap smear of cervix (~1978) Hemorrhoid (~1979) Colon polyps Deep vein thrombosis Cervical cancer Chronic pain Benign essential HTN Hypothyroidism (~2009) Surgical History Status post cervical spinal fusion Hx of ventral hernia repair History of revision of total replacement of left hip joint History of total left hip replacement S/P laparoscopy with lysis of adhesions History of hysterectomy Hx of colonoscopy Hx of cholecystectomy Hx of bilateral cataract extraction History of bowel resection Anesthesia Family History Father Diabetes mellitus History of heart disease Stroke Mother History of heart disease Grandfather History of heart disease Grandmother History of heart disease Grandfather Parkinson's disease Grandmother Alzheimer's disease Social History marital status: unmarried,single number of children: 2 household members: none Smoking Status: Former smoker alcohol intake: current tobacco type: cigarettes alcohol intake frequency: a few times a week Exam Narrative Exam Narrative: GENERAL: Alert and oriented x three, elderly female in mild distress HEENT: Head normocephalic, atraumatic, EOMI, pupils reactive, face symmetric, moist mucous membranes NECK: Supple, full range of motion CARDIOVASCULAR: Regular rate and rhythm without murmurs, rubs or gallops. No JVD. No edema bilateral lower extremities. RESPIRATORY: Breath sounds equal bilaterally, no wheezes rales or rhonchi. No tachypnea or accessory muscle use. ABDOMEN: Soft, nontender. Nondistended. Normoactive bowel sounds all 4 quadrants. No guarding or rebound, rigidity, no mass : No CVA tenderness EXTREMITIES: Normal range of motion, no clubbing or edema. Neurovascularly intact. Normal range of motion of upper and lower extremities. Sensation intact bilateral upper and lower extremities. NEUROLOGICAL: Cranial nerves II through XII grossly intact. Moving all extremities. No dysarthria, no aphasia. SKIN: Warm, dry, no petechiae, no rashes or lesions. Initial Vital Signs Initial Vital Signs: Vital Signs Pulse Rate 86 04/13/25 08:41 Blood Pressure 137/86 04/13/25 08:41 Pulse Oximetry 97 04/13/25 08:41 Course Orders Ordered: ED Orders 04/13/25 11:10 Ictotest Urine Stat UA Complete [Urinalysis and Microscopic] Stat Urine Culture Stat Urine Drug Screen, Rapid Stat 04/13/25 11:[address] [facility] - Occasional Babysitter Stat 04/13/25 13:07 Consult to Home Health Stat Discontinued Medications Sodium Chloride (Normal Saline 0.9%) 1,000 mls @ 1,000 mls/hr IV BOLUS ONE Stop: 04/13/25 09:54 Last Infusion: 04/13/25 10:33 Dose: Infused Documented By: Admin: 04/13/25 09:22 Dose: 1,000 mls/hr Documented By: JOHN Ceftriaxone Sodium 1,000 mg/ (Sodium Chloride) 100 mls @ 200 mls/hr IV NOW ONE Stop: 04/13/25 11:29 Last Infusion: 04/13/25 13:32 Dose: Infused Documented By: Admin: 04/13/25 11:34 Dose: 200 mls/hr Documented By: BONILLA Vital Signs Vital signs: Vital Signs - 8 hr 04/13/25 11:00 04/13/25 11:16 04/13/25 11:30 Pulse Rate 141 H 98 H 86 Respiratory Rate 40 H 19 Blood Pressure Pulse Oximetry 97 04/13/25 11:30 04/13/25 12:00 04/13/25 12:00 Pulse Rate 97 H Respiratory Rate 27 H Blood Pressure 144/95 H 144/92 H Pulse Oximetry 96 Medical Decision Making Lab Data 04/13/25 09:20 04/13/25 09:20 Labs: Lab Results 04/13/25 04/13/25 04/13/25 Range/Units 09:20 11:10 11:10 WBC 5.0 (4.5-11.0) X10^3/uL RBC 5.23 H (4.0-5.2) X10^6/uL Hgb 14.2 (12.0-16.0) g/dL Hct 42.6 (36-46) % MCV 81.5 (80-100) fL MCH 27.1 (26-34) PG MCHC 33.2 (30-36) % RDW 20.0 H (11.6-14.8) % Plt Count 123 L (150-400) X10^3/uL Neut % (Auto) 70.9 (50-75) % Lymph % (Auto) 18.5 L (25-40) % [place] % (Auto) 7.9 (3-14) % Eos % (Auto) 2.0 (2-4) % Baso % (Auto) 0.7 (0-2) % Neut # (Auto) 3600 (5184-3574) /uL Lymph # (Auto) 900 L (4169-3893) /uL [place] # (Auto) 400 (0-900) /uL Eos # (Auto) 100 (0-450) /uL Baso # (Auto) 0 (0-100) /uL PT 10.7 (9.4-12.5) SECONDS INR 0.9 (0.9-1.3) APTT 26 (25.1-36.5) SECONDS Sodium 131 L (137-145) mmol/L Potassium 3.7 (3.4-5.1) mmol/L Chloride 100 (98-107) mmol/L Carbon Dioxide 14 L (22-32) mmol/L BUN 12 (7-17) mg/dL Creatinine 0.63 (0.52-1.04) mg/dL Estimated GFR > 60 (>60) mL/min BUN/Creatinine Ratio 19.0 (6-22) Glucose 125 H (70-99) mg/dL Calcium 10.1 (8.4-10.2) mg/dL Total Bilirubin 1.4 H (0.2-1.3) mg/dL AST 41 H (14-36) IU/L ALT 37 H (<35) IU/L Alkaline Phosphatase 96 (38-126) U/L Total Creatine Kinase 43 (30-135) U/L Troponin I < 0.012 (0.01-0.034) ng/mL NT-Pro-B Natriuret Pep 289 H (<125) pg/mL Total Protein 7.5 (6.3-8.2) g/dL Albumin 4.8 (3.5-5.0) g/dL Globulin 2.7 (1.7-4.1) g/dL Albumin/Globulin Ratio 1.8 (1.0-2.8) Lipase 245 (23-300) U/L Urine Color Yellow Urine Appearance Clear Urine pH 6.0 Normal (4.5-8.0) Ur Specific [place] 1.020 (1.000-1.035) Urine Protein 1+ H (Negative) Urine Glucose (UA) Negative (Negative) g/dL Urine Ketones 2+ H (NEGATIVE) Urine Occult Blood Trace-intact (Negative) Urine Nitrate Negative (Negative) Urine Bilirubin 2+ H (NEGATIVE) Ur Bilirubin Confirm Positive H (Negative) Urine Urobilinogen 1.0 (0.2) E.U./dL Ur Leukocyte Esterase Trace H (NEGATIVE) Urine RBC 0-1/hpf (0-5/HPF) Urine WBC 5-10/hpf H (0-5/HPF) Ur Squamous Epith Cells 1-5 /hpf (0-5/HPF) Urine Bacteria Few (2-10) H (None) Ur Culture Indicated? Specimen cultured Vol Urine Centrifuged 10ml (spun) U Opiates 300ng/mL cut Negative (Negative) Ur Oxycodone Screen Negative (Negative) Urine Methadone Screen Negative (Negative) Ur Barbiturates Screen Negative (Negative) U Tricyclic Antidepress Negative (Negative) Ur Phencyclidine Scrn Negative (Negative) Ur Amphetamines Screen Negative (Negative) U Methamphetamines Scrn Negative (Negative) Ur MDMA Scrn (Ecstasy) Negative (Negative) U Benzodiazepines Scrn Negative (Negative) Urine Cocaine Screen Negative (Negative) U Marijuana (THC) Screen Negative (Negative) Urine Specific [place] Normal (Normal) Ethyl Alcohol < 10 (<10) mg/dL Ur Creatinine Normal (Normal) ECG Data Attestation: I personally reviewed and interpreted this ECG as follows: Prior ECG tracings: available for review Interpretation: Sinus rhythm rate 84 OK 174 QRS 84 QTC of 444, no acute change. Patient has prior from 04/26/2024 which shows sinus rhythm, appears similar to todays. [facility] Narrative Medical decision making narrative: EKG shows sinus rhythm, rate [address] changes appreciated. Similar to prior. Labs show normal white count, hemoglobin of 14 platelets are 123 down from 425 in the past. INR and PTT are appropriate. Electrolytes shows sodium 131 was 142 in February of 2025, potassium chloride are appropriate CO2 is 14, BUN 12 with a creatinine of 0.63, bilirubin is 1.4 with a AST of 41 and ALT of 37, lipase is appropriate, troponins less than 0.012 with a BNP of 289. Etoh is less than 10. Chest x-ray no acute cardiopulmonary abnormality. Head CT is negative for acute change Urine shows changes consistent with infection. Patient received fluids. Received a dose of IV antibiotics for UTI. Ambulation trial patient did well with a walker. Patient we would like to return home, she appears medically stable. We will cover for UTI. We will meet with [facility] for home health care she is not interested in PT currently although it was offered. We did discuss possibly staying for observation. Discharge Plan Departure Patient Disposition: Home Clinical Impression: Weakness, UTI (urinary tract infection) Instructions: DI for Urinary Tract Infection (UTI) Activity Restrictions/Additional Instructions: Follow up for rechecked in the next several days. Home health care should be reaching out to you to follow up. You do appear to have a UTI on your workup today, take oral antibiotics until completed. [facility] [place]. Please return for fevers, increase your new weakness, any changes to mentation, new chest pain or shortness of breath, persistent vomiting, new abdominal back or flank pain, difficulty with urination or other new or concerning changes. Prescriptions: New cephalexin 500 mg capsule 500 mg PO Q8H 7 Days Qty: 21 0RF No Action Jardiance 10 mg tablet 10 mg PO DAILY Qty: 90 3RF amlodipine [Norvasc] 10 mg tablet 10 mg PO DAILY Qty: 90 3RF levothyroxine 112 mcg tablet See Rx Instructions .ROUTE .COMPLEX Qty: 90 3RF Dose Instruction: TAKE 1 TABLET BY MOUTH DAILY Rx Instructions: TAKE 1 TABLET BY MOUTH DAILY furosemide [Lasix] 20 mg tablet 20 mg PO DAILY PRN (Reason: edema) Qty: 90 3RF potassium chloride 20 mEq tablet,ER particles/crystals 20 meq PO DAILY Qty: 30 5RF gabapentin 300 mg capsule 300 mg PO TID PRN (Reason: nerve pain) Qty: 60 3RF fenofibrate 160 mg tablet 160 mg PO DAILY Qty: 90 3RF Eliquis 5 mg tablet 5 mg PO BID Qty: 180 3RF Rx Instructions: stop xarelto (DME) Disabled Parking Permit See Rx Instructions .ROUTE .MEDSUPPLY Qty: 1 0RF Rx Instructions: I find this patient to be medically disabled and qualified for Disabled Parking as indicated on the accompanying Disabled Parking Application for Individuals. oxycodone 10 mg tablet 10 mg PO Q8H PRN (Reason: pain) Qty: 90 0RF Rx Instructions: rx 07/26. oxycodone 10 mg tablet 10 mg PO TID PRN (Reason: pain) Qty: 90 0RF Rx Instructions: rx 2/3 oxycodone 10 mg tablet 10 mg PO TID PRN (Reason: pain) Qty: 90 0RF Rx Instructions: rx 3/3 lidocaine [Lidoderm] 5 % adhesive patch,medicated 1 patch topical PRN Rx Instructions: leave on most painful area for up to 12 hrs Referrals: Higinio Block DO [Primary Care Provider, Family Practice] Stand Alone Forms: Patient Portal/API
--- NOTE | 2025-04-13 08:55 | EKG_ITS ---
[address] [address] Test Date: 2025-04-13 Pat Name: Nicole Chow Department: Room: Gender: Female Athletic Director: JOSE : 1955 Requested By: Order Number: [id number] Reading MD: Bhupinder Fox MD Measurements Intervals [place] Rate: 84 P: 28 ME: 174 QRS: -9 QRSD: 84 T: 51 QT: 376 QTc: 444 Interpretive Statements Normal sinus rhythm Minimal voltage criteria for LVH, may be normal variant ( R in aVL ) Electronically Signed On 04-13-2025 14:44:26 PDT by Bhupinder Fox MD
--- NOTE | 2025-04-13 08:55 | DI.RAD.S_ITS ---
PROCEDURE: XR CHEST 1V INDICATIONS: weakness TECHNIQUE: One view of the chest was acquired. COMPARISON: Located Within [facility], CR, XR CHEST 1V, 07/15/2024, 23:03. FINDINGS: Surgical changes and devices: Cervical thoracic and thoracolumbar large ashley and screw spinal constructs Lungs and pleura: Lungs are clear. No pleural effusions or pneumothorax. Mediastinum: Mediastinal contours appear normal. Heart size is normal. Bones and chest wall: No suspicious bony lesions. Overlying soft tissues appear unremarkable. IMPRESSION: No acute cardiopulmonary abnormality is seen. Approved by: Farhan Jacome M.D. on 04/13/2025 at 9:41
--- NOTE | 2025-04-13 09:03 | DI.CT.S_ITS ---
PROCEDURE: CT HEAD/BRAIN WO CON INDICATIONS: falls, weakness, etoh TECHNIQUE: Noncontrast 4.5 mm thick angled axial sections acquired from the foramen magnum to the vertex, with coronal and sagittal reformats. For radiation dose reduction, the following was used: automated exposure control, adjustment of mA and/or kV according to patient size. COMPARISON: None. FINDINGS: Image quality: Diagnostic. CSF spaces: Basal cisterns are patent. No extra-axial fluid collections. Ventricles are normal in size and shape. Brain: No midline shift. No intracranial mass effect or hemorrhage. Warren- white matter interface is normal. Skull and face: Calvarium and visualized facial bones are intact, without suspicious lesions. Sinuses: Visualized sinuses and mastoids are clear. IMPRESSION: No acute intracranial pathology. Approved by: Farhan Jacome M.D. on 04/13/2025 at 9:55
[2025-04-13] MEDS: SODIUM CHLORIDE 0.9% 1,000 ML 1000 ML IV (09:22)
[2025-04-13 09:49] LABS: Alanine Aminotransferase 37 IU/L (<35); Albumin 4.8 g/dL (3.5-5.0); Albumin Globulin Ratio 1.8 (1.0-2.8); Alkaline Phosphatase 96 U/L (38-126); Blood Urea Nitrogen 12 mg/dL (7-17); Calcium 10.1 mg/dL (8.4-10.2); Carbon Dioxide 14 mmol/L (22-32); Chloride 100 mmol/L (98-107); Creatine Kinase 43 U/L (30-135); Estimated Glomerular Filt Rate > 60 mL/min (>60); Ethanol (ETOH) < 10 mg/dL (<10); Globulin 2.7 g/dL (1.7-4.1); Glucose 125 mg/dL (70-99); HEMOLYSIS 20 (0-50); Lipase 245 U/L (23-300); Potassium 3.7 mmol/L (3.4-5.1); Sodium 131 mmol/L (137-145); Total Protein 7.5 g/dL (6.3-8.2)
[2025-04-13 09:55] LABS: INR 0.9 (0.9-1.3); Prothrombin Time 10.7 SECONDS (9.4-12.5)
[2025-04-13 09:58] LABS: PTT Partial Thromboplastin Tim 26 SECONDS (25.1-36.5)
[2025-04-13 10:00] LABS: NT-proBNP (BNP-Adult 18+) 289 pg/mL (<125); Troponin I < 0.012 ng/mL (0.01-0.034)
[2025-04-13 10:01] LABS: Add Manual Diff / Slide Review NO; Hematocrit 42.6 % (36-46); Hemoglobin 14.2 g/dL (12.0-16.0); Lymphocytes Absolute Auto 900 /uL (1100-4500); Mean Corpuscular HGB Conc 33.2 % (30-36); Mean Corpuscular Hemoglobin 27.1 PG (26-34); Mean Corpuscular Volume 81.5 fL (80-100); Platelet Count 123 X10^3/uL (150-400)
[2025-04-13 11:17] LABS: Appearance Urine UA CLEAR; Bilirubin Urine UA 2+ (NEGATIVE); Color Urine UA YELLOW; Glucose Urine UA NEGATIVE (Negative); Ketones Urine UA 2+ (NEGATIVE); Leukocyte Esterase Urine UA TRACE (NEGATIVE); Nitrite Urine UA NEGATIVE (Negative); Occult Blood Urine UA TRACE-INTACT (Negative); Protein Urine UA 1+ (Negative); Specific Gravity Urine UA 1.020 (1.000-1.035); Urobilinogen Urine UA 1.0 E.U./dL (0.2)
[2025-04-13 11:26] LABS: pH Urine UA 6.0 (4.5-8.0)
[2025-04-13 11:27] LABS: Culture Indicated Urine Specimen Cultured; Ur Creatinine Normal (Normal); Ur Specific Gravity Normal (Normal); Urine MDMA Negative (Negative); Urine Methamphetamines Negative (Negative); Urine THC Negative (Negative); Urine Tricyclic Antidepressant Negative (Negative); Urine pH Normal (Normal)
[2025-04-13 11:41] LABS: Ictotest Urine Positive (Negative)
--- NOTE | 2025-04-14 15:28 | CM.SWNOTE ---
ED FRUIT LOADER Note: FRUIT LOADER received an email from [facility] (Bhupinder) who states while they attempted to schedule start of care, pt reported to him, She does not want Home Health. ?She wants Home Care. ?She does not want RN. ?She only wants someone that can help her daily with showers, dressing, house chores, cooking etc.? she is in need of a caregiver agency. Confirmed with [facility] that pt will not establish care with them at this time. Pt consented to at least RN and HH Aide during ED presentation on 04/13. SANDY Jefferson
== END 2025-04-13 13:38 | disposition home or self-care (01) ==
PROVIDERS: Emergency Provider Emergency Medicine; Family Provider Family Medicine; PCP Family Medicine; Referring Provider Family Medicine
DX: R53.1 Weakness (principal); N39.0 Urinary tract infection, site not specified; Z91.81 History of falling
CPT/HCPCS: 36415; 70450; 71045; 80053; 80305; 80320; 81001; 82550; 83690; 83880; 84484; 85025; 85610; 85730; 87086; 93005; 93010; 96361; 96365; 96366; 99284; J0696

== ENCOUNTER → 2025-04-28 11:32 | Outpatient (CLI) | payer MEDICARE, SELFPAY ==
[2024-07-09 11:14] VITALS: BMI 35.6
[2025-04-28 12:40] LABS: Appearance Urine UA CLEAR; Bilirubin Urine UA NEGATIVE (NEGATIVE); Color Urine UA YELLOW; Glucose Urine UA 3+ g/dL (Negative); Ketones Urine UA NEGATIVE (NEGATIVE); Leukocyte Esterase Urine UA NEGATIVE (NEGATIVE); Nitrite Urine UA NEGATIVE (Negative); Occult Blood Urine UA TRACE-INTACT (Negative); Protein Urine UA NEGATIVE (Negative); Specific Gravity Urine UA <=1.005 (1.000-1.035); Urobilinogen Urine UA 0.2 E.U./dL (0.2)
[2025-04-28 12:45] LABS: pH Urine UA 7.0 (4.5-8.0)
[2025-04-28 12:46] LABS: Culture Indicated Urine Cult Not Indicated
== END ==
PROVIDERS: Family Provider Family Medicine; PCP Family Medicine; Referring Provider Family Medicine; Visit Provider Family Medicine
DX: R30.0 Dysuria (principal); R35.0 Frequency of micturition
CPT/HCPCS: 81001

== ENCOUNTER → 2025-05-29 09:32 | Outpatient (CLI) | payer MEDICARE, SELFPAY ==
[2024-07-09 11:14] VITALS: BMI 35.6
[2025-05-29 10:35] LABS: Hemoglobin A1C% w Est Avg Glu 6.2 % (4.0-6.0)
== END ==
LOC: LAB 09:35
PROVIDERS: Family Provider Family Medicine; PCP Family Medicine; Referring Provider Family Medicine; Visit Provider Family Medicine
DX: E11.8 Type 2 diabetes mellitus with unspecified complications (principal)
CPT/HCPCS: 36415; 83036

== ENCOUNTER → 2025-06-04 08:30 | Outpatient (CLI) | payer MEDICARE, SELFPAY ==
[2024-07-09 11:14] VITALS: BMI 35.6
[2025-06-04 09:36] LABS: Hematocrit 42.0 % (36-46); Hemoglobin 14.0 g/dL (12.0-16.0); Mean Corpuscular HGB Conc 33.2 % (30-36); Mean Corpuscular Hemoglobin 27.4 PG (26-34); Mean Corpuscular Volume 82.6 fL (80-100); Platelet Count 358 X10^3/uL (150-400)
[2025-06-04 09:57] LABS: Blood Urea Nitrogen 20 mg/dL (7-17); Calcium 10.2 mg/dL (8.4-10.2); Carbon Dioxide 25 mmol/L (22-32); Chloride 101 mmol/L (98-107); Estimated Glomerular Filt Rate > 60 mL/min (>60); Glucose 218 mg/dL (70-99); HEMOLYSIS < 15 (0-50); Potassium 4.0 mmol/L (3.4-5.1); Sodium 141 mmol/L (137-145)
[2025-06-04 10:13] LABS: Free T3, Triiodothyronine Free 2.67 pg/mL (2.77-5.27); Free T4, Direct Thyroxine 1.85 ng/dL (0.78-2.19)
[2025-06-04 10:14] LABS: Appearance Urine UA CLEAR; Bilirubin Urine UA NEGATIVE (NEGATIVE); Color Urine UA YELLOW; Glucose Urine UA 3+ g/dL (Negative); Ketones Urine UA NEGATIVE (NEGATIVE); Leukocyte Esterase Urine UA NEGATIVE (NEGATIVE); Nitrite Urine UA NEGATIVE (Negative); Occult Blood Urine UA NEGATIVE (Negative); Protein Urine UA NEGATIVE (Negative); Specific Gravity Urine UA <=1.005 (1.000-1.035); Urobilinogen Urine UA 0.2 E.U./dL (0.2)
[2025-06-04 10:16] LABS: pH Urine UA 7.0 (4.5-8.0)
[2025-06-04 10:23] LABS: Culture Indicated Urine Cult Not Indicated
[2025-06-04 10:26] LABS: Thyroid Stimulating Hormone 1.89 uIU/mL (0.47-4.68)
[2025-06-04 10:28] LABS: Ferritin 22 ng/mL (11-264)
== END ==
PROVIDERS: Family Provider Family Medicine; PCP Family Medicine; Referring Provider Family Medicine; Visit Provider Family Medicine
DX: E87.1 Hypo-osmolality and hyponatremia (principal); N18.30 Chronic kidney disease, stage 3 unspecified; E03.8 Other specified hypothyroidism; R06.09 Other forms of dyspnea; F10.90 Alcohol use, unspecified, uncomplicated
CPT/HCPCS: 36415; 80048; 81001; 82728; 84439; 84443; 84481; 85027

== ENCOUNTER → 2025-06-11 13:37 | Outpatient (CLI) | payer MEDICARE, SELFPAY ==
[2024-07-09 11:14] VITALS: BMI 35.6
--- NOTE | 2025-06-11 13:38 | DI.ECHO.S_ITS ---
[facility] : : [address] : : [place] : : [address] : : Phone: [phone] Echocardiogram Report + + :Name: TRUNG MENA Study Date: 06/11/2025 Height: 63 in : :[facility] ReadingLocation: Weight: 169 lb : : Gender: Female BSA: 1.8 m2 : :: 1955 Age: 69 yrs BP: 130/89 mmHg: :Reason For Study: MALONE : :Ordering Physician: IRIS CALI Performed By: Leonel Aggarwal : :Referring: IRIS CALI : + + Interpretation Summary The left ventricle is normal in size. Overall left ventricular systolic function is preserved. The ejection fraction is estimated to be 50-55%. There are no obvious focal wall motion abnormalities noted but poor endocardial definition reduces the sensitivity for the detection of such. Grade I diastolic dysfunction with normal left atrial pressure. The right ventricle is normal in size and function. Pulmonary artery pressures cannot be estimated because of the lack of a measurable TR jet velocity but the IVC suggests a CVP of around 3 mmHg. The left atrial size is normal. There is no significant valvular heart disease. The aortic root is normal size. Procedure: A two-dimensional transthoracic echocardiogram with color flow and Doppler was performed. The study quality was technically adequate. There is no prior echocardiogram noted for this patient. The patient was in normal sinus rhythm during the exam. Left Ventricle: The left ventricle is normal in size. Left ventricular wall thickness is mildly increased. Overall left ventricular systolic function is preserved. The ejection fraction is estimated to be 50-55%. There are no obvious focal wall motion abnormalities noted but poor endocardial definition reduces the sensitivity for the detection of such. Grade I diastolic dysfunction with normal left atrial pressure. Right Ventricle: The right ventricle is normal in size and function. Atria: The left atrial size is normal. Right atrial size is normal. There is no Doppler evidence for an interatrial shunt. Mitral Valve: The mitral valve leaflets appear to open well. There is no mitral valve stenosis. There is trace mitral regurgitation. Aortic Valve: The aortic valve is trileaflet. The aortic valve opens well. There is no aortic valve stenosis. No aortic regurgitation is present. Tricuspid Valve: The tricuspid valve is not well visualized, but is grossly normal. There is trace tricuspid regurgitation. Pulmonary artery pressures cannot be estimated because of the lack of a measurable TR jet velocity but the IVC suggests a CVP of around 3 mmHg. Pulmonic Valve: The pulmonic valve is not well seen, but is grossly normal. There is trace pulmonic regurgitation. There is no significant valvular heart disease. Great Vessels: The aortic root is normal size. The ascending aorta is normal in size. The aortic arch could not be visualized. The pulmonary artery is normal size. The IVC is of normal diameter and collapses greater than 50% with a sniff. This suggests a low right atrial pressure of 3 mm Hg. Pericardium/ Pleura There is no pericardial effusion. MMode/2D Measurements & Calculations LVIDd: 3.6 cm LVOT diam: 2.2 cm LVIDs: 2.4 cm Ao root diam: 3.0 cm FS: 34.9 % asc Aorta Diam: 3.6 cm IVSd: 1.2 cm LVPWd: 1.2 cm LV urbano. diameter/BSA (cm/m^2): 2.0 LV sys. diameter/BSA (cm/m^2): 1.3 LA A2 area: 15.1 cm2 IVC diam: 1.3 cm LA A4 area: 19.0 cm2 LA length (vol): 5.6 cm LA vol: 43.3 ml LA vol index: 24.0 ml/m2 RVD1 (basal): 2.6 cm RVD2 (mid): 2.3 cm TAPSE: 1.8 cm Doppler Measurements & Calculations Ao V2 max: 117.7 cm/sec LVOT Max Jose A: 90.2 cm/sec Ao V2 mean: 91.4 cm/sec LV V1 max P.3 mmHg Ao max P.5 mmHg LV V1 VTI: 17.7 cm Ao mean P.6 mmHg MELISSA(I,D): 3.0 cm2 Ao V2 VTI: 23.0 cm MELISSA(V,D): 3.0 cm2 sev ratio: 0.77 MELISSA indexed to BSA (cm^2/m^2): 1.7 MV E max jose a: 51.6 cm/sec SV(LVOT): 68.6 ml MV A max jose a: 79.3 cm/sec MV E/A: 0.65 Med Peak E' Jose A: 4.4 cm/sec E/E' med: 11.8 Lat Peak E' Jose A: 7.3 cm/sec E/E' lat: 7.0 E/e' average: 9.4 MV dec time: 0.18 sec Reading Physician:05:33 PM
== END ==
PROVIDERS: Family Provider Family Medicine; PCP Family Medicine; Referring Provider Family Medicine; Visit Provider Family Medicine
DX: I10 Essential (primary) hypertension (principal); R06.09 Other forms of dyspnea
CPT/HCPCS: 93306